=== PATIENT | female | born 1970 | race Asian ===

== ENCOUNTER → 2020-07-30 | Outpatient (CLI) | payer SELFPAY ==
[2020-07-30 11:56] LABS: CALCIUM 9.8 mg/dL (8.5-10.1); CREATININE 0.9 mg/dL (0.6-1.0); POTASSIUM 3.9 mmol/L (3.5-5.1)
[2020-07-30 11:58] LABS: BASO % 1 % (0-3); EOS % 1 % (0-3); HEMATOCRIT 37.3 % (36.0-47.0); LYMPH # 0.8 x10^3/uL (1.0-4.8); LYMPH % 14 % (24-48); MEAN CORPUSCULAR HEMOGLOBIN 30 pg (25-35); MEAN CORPUSCULAR HGB CONC 35 g/dL (31-37); MEAN CORPUSCULAR VOLUME 86 fL (79-100); MONO # 0.5 x10^3/uL (0.0-1.1); MONO % 8 % (0-9); NEUT # 4.5 x10^3/uL (1.8-7.7); NEUT % 77 % (31-73); PLATELET COUNT 287 x10^3/uL (140-400); RED BLOOD COUNT 4.36 x10^6/uL (3.50-5.40); RED CELL DISTRIBUTION WIDTH 13.3 % (11.5-14.5); WHITE BLOOD COUNT 5.9 x10^3/uL (4.0-11.0)
[2020-07-30 12:01] LABS: ALBUMIN 3.2 g/dL (3.4-5.0); ALBUMIN/GLOBULIN RATIO 0.6 (1.0-1.7); TOTAL BILIRUBIN 1.2 mg/dL (0.2-1.0); TOTAL PROTEIN 8.8 g/dL (6.4-8.2)
[2020-07-30 12:17] LABS: PROTHROMBIN TIME PATIENT 16.3 SEC (11.7-14.0)
== END | disposition home or self-care (01) ==
LOC: ONCLAB 11:31
PROVIDERS: ATTEND Internal Medicine Hematology & Oncology
DX: C34.2 Malignant neoplasm of middle lobe, bronchus or lung (principal)
CPT/HCPCS: 36415; 80053; 85025; 85610

== ENCOUNTER → 2020-08-05 | Outpatient (CLI) | payer SELFPAY ==
[2020-08-05 10:04] LABS: BASO % 0 % (0-3); EOS % 1 % (0-3); HEMATOCRIT 38.3 % (36.0-47.0); HEMOGLOBIN 13.2 g/dL (12.0-15.5); LYMPH # 0.4 x10^3/uL (1.0-4.8); LYMPH % 10 % (24-48); MEAN CORPUSCULAR HEMOGLOBIN 29 pg (25-35); MEAN CORPUSCULAR HGB CONC 34 g/dL (31-37); MEAN CORPUSCULAR VOLUME 85 fL (79-100); MONO # 0.4 x10^3/uL (0.0-1.1); MONO % 9 % (0-9); NEUT # 3.5 x10^3/uL (1.8-7.7); NEUT % 80 % (31-73); PLATELET COUNT 266 x10^3/uL (140-400); RED BLOOD COUNT 4.51 x10^6/uL (3.50-5.40); RED CELL DISTRIBUTION WIDTH 12.9 % (11.5-14.5); WHITE BLOOD COUNT 4.4 x10^3/uL (4.0-11.0)
[2020-08-05 10:25] LABS: ALBUMIN 3.5 g/dL (3.4-5.0); ALBUMIN/GLOBULIN RATIO 0.7 (1.0-1.7); CALCIUM 9.3 mg/dL (8.5-10.1); CREATININE 0.8 mg/dL (0.6-1.0); GFR 75.6; TOTAL BILIRUBIN 0.8 mg/dL (0.2-1.0); TOTAL PROTEIN 8.4 g/dL (6.4-8.2)
[2020-08-05 10:28] LABS: POTASSIUM 2.8 mmol/L (3.5-5.1)
== END | disposition home or self-care (01) ==
LOC: ONCLAB 09:51
PROVIDERS: ATTEND Internal Medicine Hematology & Oncology
DX: C34.2 Malignant neoplasm of middle lobe, bronchus or lung (principal)
CPT/HCPCS: 36415; 80053; 85025; 85610

== ENCOUNTER → 2020-08-12 | Outpatient (CLI) | payer SELFPAY ==
[2020-08-12 11:10] LABS: PROTHROMBIN TIME PATIENT 30.8 SEC (11.7-14.0)
== END | disposition home or self-care (01) ==
LOC: ONCLAB 10:43
PROVIDERS: ATTEND Internal Medicine Hematology & Oncology
DX: C34.2 Malignant neoplasm of middle lobe, bronchus or lung (principal)
CPT/HCPCS: 36415; 85610

== ENCOUNTER → 2020-08-18 | Outpatient (CLI) | payer SELFPAY ==
--- NOTE | 2020-08-18 13:49 | EKG ---
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
== END | disposition home or self-care (01) ==
LOC: EKG 13:08
PROVIDERS: ATTEND Internal Medicine Hematology & Oncology
DX: C34.2 Malignant neoplasm of middle lobe, bronchus or lung (principal); R94.31 Abnormal electrocardiogram [ECG] [EKG]
CPT/HCPCS: 93005

== ENCOUNTER → 2020-08-19 | Outpatient (CLI) | payer SELFPAY ==
[2020-08-19 10:46] LABS: BASO % 0 % (0-3); EOS # 0.1 x10^3/uL (0.0-0.7); EOS % 3 % (0-3); HEMOGLOBIN 12.6 g/dL (12.0-15.5); LYMPH # 0.5 x10^3/uL (1.0-4.8); LYMPH % 11 % (24-48); MEAN CORPUSCULAR HEMOGLOBIN 29 pg (25-35); MEAN CORPUSCULAR HGB CONC 34 g/dL (31-37); MEAN CORPUSCULAR VOLUME 86 fL (79-100); MONO # 0.5 x10^3/uL (0.0-1.1); MONO % 11 % (0-9); NEUT # 3.4 x10^3/uL (1.8-7.7); NEUT % 75 % (31-73); PLATELET COUNT 144 x10^3/uL (140-400); RED BLOOD COUNT 4.32 x10^6/uL (3.50-5.40); RED CELL DISTRIBUTION WIDTH 13.7 % (11.5-14.5); WHITE BLOOD COUNT 4.6 x10^3/uL (4.0-11.0)
[2020-08-19 10:55] LABS: PROTHROMBIN TIME PATIENT 32.9 SEC (11.7-14.0)
[2020-08-19 11:01] LABS: CALCIUM 9.1 mg/dL (8.5-10.1); CREATININE 0.8 mg/dL (0.6-1.0); GFR 75.6; POTASSIUM 3.3 mmol/L (3.5-5.1)
[2020-08-19 11:06] LABS: ALBUMIN 3.2 g/dL (3.4-5.0); ALBUMIN/GLOBULIN RATIO 0.7 (1.0-1.7); TOTAL BILIRUBIN 0.7 mg/dL (0.2-1.0); TOTAL PROTEIN 7.8 g/dL (6.4-8.2)
== END ==
LOC: ONCLAB 08:00
PROVIDERS: ATTEND Internal Medicine Hematology & Oncology
DX: C34.2 Malignant neoplasm of middle lobe, bronchus or lung (principal)
CPT/HCPCS: 36415; 80053; 85025; 85610

== ENCOUNTER → 2020-08-26 | Outpatient (CLI) | payer SELFPAY ==
[2020-08-26 10:58] LABS: PROTHROMBIN TIME PATIENT 50.1 SEC (11.7-14.0)
== END ==
LOC: ONCLAB 09:39
PROVIDERS: ATTEND Internal Medicine Hematology & Oncology
DX: C34.2 Malignant neoplasm of middle lobe, bronchus or lung (principal)
CPT/HCPCS: 36415; 85610

== ENCOUNTER → 2020-08-29 | Outpatient (CLI) | payer SELFPAY ==
[2020-08-29 12:28] LABS: PROTHROMBIN TIME PATIENT 16.7 SEC (11.7-14.0)
== END ==
LOC: ONCLAB 11:18
PROVIDERS: ATTEND Internal Medicine Hematology & Oncology
DX: C34.2 Malignant neoplasm of middle lobe, bronchus or lung (principal)
CPT/HCPCS: 36415; 85610

== ENCOUNTER → 2020-09-08 | Outpatient (CLI) | payer MEDICAID, OTHER ==
[~2020-09-08] MED LIST: CONTRAST GIVEN. MC PRN; IOHEXOL 240 MG/ML 50ML VIAL. PO ONE; IOHEXOL 300 MG/ML 100ML VIAL. IV ONE
--- NOTE | 2020-09-08 14:08 | RAD ---
EXAM: CT Chest, Abdomen, and Pelvis with IV contrast INDICATION: Reason: EGFR POSITIVE NON-SMALL CELL LUNG CANCER / Spl. Instructions: IV OMNI 300 75 MLS AND PO OMNI 240 50 MLS / History: TECHNIQUE: Multi-detector row CT images were acquired from the thoracic inlet through the ischial tuberosities with the use of IV contrast. Sagittal and coronal images were acquired from the transaxial data. All CT scans performed at this facility utilize dose optimization techniques as appropriate to the exam, including the following: Automated exposure control and adjustment of the mA and/or KV according to patient size (this includes techniques or standardized protocols for targeted exams where dose is indication/reason for exam). IV CONTRAST: Administered ORAL CONTRAST: Administered COMPARISON: None FINDINGS: CHEST: CARDIOVASCULAR: Ectasia of the ascending thoracic aorta to 3.9 cm . Three vessel arch with no dissection or flow limiting stenosis. Moderate cardiomegaly. No pericardial effusion. MEDIASTINUM & JONATHAN: No adenopathy or masses. LUNGS: Irregular soft tissue mass in the right middle lobe straddling the minor fissure abutting the major fissure is present measuring 2.3 cm in cranial caudal extent (image 49 of series 6), 3.2 cm mediolateral (image 26 of series 2) and 1.8 cm AP diameter (image 26 series 2). PLEURAL SPACE: No pleural effusions or pneumothorax. OSSEOUS & SOFT TISSUE: Osteoblastic lesion with sunburst periosteal reaction in the right scapula is present. ABDOMEN/PELVIS: LIVER: Unremarkable BILIARY SYSTEM: Gallbladder is unremarkable. Bile ducts are not dilated. PANCREAS: Unremarkable SPLEEN: Unremarkable ADRENALS: Unremarkable KIDNEYS & URETERS: Unremarkable BLADDER: Mild nonspecific diffuse bladder wall thickening. This present in the setting of under distention. REPRODUCTIVE ORGANS: Unremarkable GASTROINTESTINAL: Stomach and small bowel are unremarkable. The large bowel is largely stool filled but there are 2 segments of luminal narrowing in the distal ascending portion and in the proximal transverse portion (image 42 and image 46 axial series 4) Represent peristaltic contractions but merit attention on follow-up. The appendix is not well seen but there are no findings suggesting acute appendicitis. MESENTERY/PERITONEUM/RETROPERITONEUM: Unremarkable VASCULAR: Unremarkable LYMPH NODES: No adenopathy OSSEOUS & SOFT TISSUES: Unremarkable IMPRESSION: Irregular mass centered in the right middle lobe crossing the minor fissure and abutting the major fissure measuring 2.3 x 3.2 x 1.8 cm is compatible with patient's known history of non-small cell lung cancer. Apart from an osteoblastic lesion in the right scapula, no findings suspicious for distant metastatic disease is identified in the included field of view. Correlation with prior imaging to assess interval change could be helpful in assessing treatment response. Electronically signed by: Lizzeth Melgar MD (09/08/2020 2:05 PM) [id number]
== END ==
LOC: CT 08:29
PROVIDERS: ATTEND Internal Medicine Hematology & Oncology
DX: C34.2 Malignant neoplasm of middle lobe, bronchus or lung (principal); I77.810 Thoracic aortic ectasia; R91.8 Other nonspecific abnormal finding of lung field
CPT/HCPCS: 71260; 74177; Q9966; Q9967

== ENCOUNTER → 2020-09-10 | Outpatient (CLI) | payer OTHER ==
[2020-09-10 11:40] LABS: BASO % 1 % (0-3); EOS # 0.1 x10^3/uL (0.0-0.7); EOS % 2 % (0-3); HEMATOCRIT 37.1 % (36.0-47.0); HEMOGLOBIN 12.5 g/dL (12.0-15.5); LYMPH # 0.7 x10^3/uL (1.0-4.8); LYMPH % 17 % (24-48); MEAN CORPUSCULAR HEMOGLOBIN 29 pg (25-35); MEAN CORPUSCULAR HGB CONC 34 g/dL (31-37); MEAN CORPUSCULAR VOLUME 86 fL (79-100); MONO # 0.5 x10^3/uL (0.0-1.1); MONO % 12 % (0-9); NEUT # 3.1 x10^3/uL (1.8-7.7); NEUT % 69 % (31-73); PLATELET COUNT 168 x10^3/uL (140-400); RED BLOOD COUNT 4.33 x10^6/uL (3.50-5.40); RED CELL DISTRIBUTION WIDTH 14.2 % (11.5-14.5); WHITE BLOOD COUNT 4.5 x10^3/uL (4.0-11.0)
[2020-09-10 11:41] LABS: CREATININE 0.9 mg/dL (0.6-1.0); POTASSIUM 3.4 mmol/L (3.5-5.1)
[2020-09-10 11:47] LABS: ALBUMIN 3.3 g/dL (3.4-5.0); ALBUMIN/GLOBULIN RATIO 0.7 (1.0-1.7); TOTAL BILIRUBIN 0.3 mg/dL (0.2-1.0); TOTAL PROTEIN 7.8 g/dL (6.4-8.2)
[2020-09-10 11:49] LABS: PROTHROMBIN TIME PATIENT 39.6 SEC (11.7-14.0)
== END ==
LOC: ONCLAB 11:08
PROVIDERS: ATTEND Internal Medicine Hematology & Oncology
DX: C34.2 Malignant neoplasm of middle lobe, bronchus or lung (principal)
CPT/HCPCS: 36415; 80053; 85025; 85610

== ENCOUNTER → 2020-09-16 | Outpatient (CLI) | payer OTHER ==
[2020-09-16 11:56] LABS: PROTHROMBIN TIME PATIENT 15.3 SEC (11.7-14.0)
[2020-09-16 11:58] LABS: CALCIUM 9.3 mg/dL (8.5-10.1); CREATININE 0.9 mg/dL (0.6-1.0); POTASSIUM 3.7 mmol/L (3.5-5.1)
[2020-09-16 12:01] LABS: ALBUMIN 3.4 g/dL (3.4-5.0); ALBUMIN/GLOBULIN RATIO 0.7 (1.0-1.7); TOTAL BILIRUBIN 0.6 mg/dL (0.2-1.0); TOTAL PROTEIN 8.1 g/dL (6.4-8.2)
== END ==
LOC: ONCLAB 11:28
PROVIDERS: ATTEND Internal Medicine Hematology & Oncology
DX: C34.2 Malignant neoplasm of middle lobe, bronchus or lung (principal)
CPT/HCPCS: 36415; 80053; 85610

== ENCOUNTER → 2020-09-22 | Outpatient (CLI) | payer OTHER ==
--- NOTE | 2020-09-22 16:53 | RAD ---
Examination: Bone Scintigraphy - Whole Body: Radiopharmaceutical: 25 mCi Tc-99m MDP I.V. History: Lung cancer, metastasis. Comparison: CT from 09/08/2020 Findings/ impression: Delayed anterior and posterior whole body bone scintigraphy was performed. There is a focal radiotracer uptake identified in the right scapular region with corresponding to sclerotic lesion on the CT scan could be metastasis or post therapeutic changes. Correlate with prior imaging. Electronically signed by: Chele Theodore MD (09/22/2020 4:50 PM) [id number]
== END ==
LOC: NM 10:28
PROVIDERS: ATTEND Radiology Radiation Oncology
DX: C34.2 Malignant neoplasm of middle lobe, bronchus or lung (principal); C79.81 Secondary malignant neoplasm of breast
CPT/HCPCS: 78306; A9503

== ENCOUNTER → 2020-09-22 | Outpatient (CLI) | payer OTHER ==
--- NOTE | 2020-09-22 11:36 | EKG ---
[facility] [address] [place] [address] Test Date: 2020-09-22 Test Time: 11:31:42 Pat Name: NOEL TILLMAN Department: Room: Gender: F Ct Tech: SJ : 1970 Requested By: WILMAR HUANG Order Number: [id number] Reading MD: Chase West MD Measurements Intervals [place] Rate: 73 P: 42 [place]: 158 QRS: 40 QRSD: 84 T: 63 QT: 394 QTc: 438 Interpretive Statements SINUS RHYTHM Electronically Signed On 09-22-2020 16:13:56 PICTURE FRAMES INSPECTOR by Chase West MD
== END ==
LOC: EKG 10:43
PROVIDERS: ATTEND Internal Medicine Hematology & Oncology
DX: C34.2 Malignant neoplasm of middle lobe, bronchus or lung (principal)
CPT/HCPCS: 93005

== ENCOUNTER → 2020-10-13 | Outpatient (CLI) | payer OTHER ==
[2020-10-13 12:40] LABS: BASO % 1 % (0-3); EOS # 0.1 x10^3/uL (0.0-0.7); EOS % 2 % (0-3); HEMATOCRIT 37.7 % (36.0-47.0); HEMOGLOBIN 12.6 g/dL (12.0-15.5); LYMPH # 0.7 x10^3/uL (1.0-4.8); LYMPH % 16 % (24-48); MEAN CORPUSCULAR HEMOGLOBIN 29 pg (25-35); MEAN CORPUSCULAR HGB CONC 34 g/dL (31-37); MEAN CORPUSCULAR VOLUME 85 fL (79-100); MONO # 0.5 x10^3/uL (0.0-1.1); MONO % 11 % (0-9); NEUT # 3.2 x10^3/uL (1.8-7.7); NEUT % 71 % (31-73); PLATELET COUNT 191 x10^3/uL (140-400); RED BLOOD COUNT 4.44 x10^6/uL (3.50-5.40); RED CELL DISTRIBUTION WIDTH 14.9 % (11.5-14.5); WHITE BLOOD COUNT 4.5 x10^3/uL (4.0-11.0)
[2020-10-13 12:54] LABS: CALCIUM 8.5 mg/dL (8.5-10.1); CREATININE 0.8 mg/dL (0.6-1.0); GFR 75.6; POTASSIUM 3.6 mmol/L (3.5-5.1)
[2020-10-13 13:01] LABS: ALBUMIN 3.3 g/dL (3.4-5.0); ALBUMIN/GLOBULIN RATIO 0.8 (1.0-1.7); TOTAL BILIRUBIN 0.5 mg/dL (0.2-1.0); TOTAL PROTEIN 7.6 g/dL (6.4-8.2)
== END ==
LOC: ONCLAB 12:16
PROVIDERS: ATTEND Internal Medicine Hematology & Oncology
DX: C34.2 Malignant neoplasm of middle lobe, bronchus or lung (principal)
CPT/HCPCS: 36415; 80053; 85025

== ENCOUNTER → 2020-11-17 | Outpatient (CLI) | payer OTHER ==
--- NOTE | 2020-12-12 11:54 | EKG ---
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
== END ==
LOC: EKG 12:05
PROVIDERS: ATTEND Internal Medicine Hematology & Oncology
DX: C34.2 Malignant neoplasm of middle lobe, bronchus or lung (principal); I49.8 Other specified cardiac arrhythmias
CPT/HCPCS: 93005

== ENCOUNTER → 2020-12-18 | Outpatient (CLI) | payer OTHER ==
[2020-12-18 12:41] LABS: BASO % 0 % (0-3); EOS # 0.1 x10^3/uL (0.0-0.7); EOS % 2 % (0-3); HEMATOCRIT 34.5 % (36.0-47.0); HEMOGLOBIN 11.6 g/dL (12.0-15.5); LYMPH % 18 % (24-48); MEAN CORPUSCULAR HEMOGLOBIN 28 pg (25-35); MEAN CORPUSCULAR HGB CONC 34 g/dL (31-37); MEAN CORPUSCULAR VOLUME 83 fL (79-100); MONO # 0.7 x10^3/uL (0.0-1.1); MONO % 12 % (0-9); NEUT % 69 % (31-73); PLATELET COUNT 86 x10^3/uL (140-400); RED BLOOD COUNT 4.16 x10^6/uL (3.50-5.40); RED CELL DISTRIBUTION WIDTH 14.2 % (11.5-14.5); WHITE BLOOD COUNT 5.9 x10^3/uL (4.0-11.0)
[2020-12-18 12:44] LABS: CALCIUM 9.1 mg/dL (8.5-10.1); CREATININE 0.8 mg/dL (0.6-1.0); GFR 75.3; POTASSIUM 3.7 mmol/L (3.5-5.1)
[2020-12-18 12:50] LABS: ALBUMIN 3.3 g/dL (3.4-5.0); ALBUMIN/GLOBULIN RATIO 0.7 (1.0-1.7); TOTAL BILIRUBIN 0.5 mg/dL (0.2-1.0); TOTAL PROTEIN 7.9 g/dL (6.4-8.2)
== END ==
LOC: ONCLAB 12:18
PROVIDERS: ATTEND Internal Medicine Hematology & Oncology
DX: C34.2 Malignant neoplasm of middle lobe, bronchus or lung (principal)
CPT/HCPCS: 36415; 80053; 85025

== ENCOUNTER → 2021-01-05 | Outpatient (CLI) | payer OTHER ==
[~2021-01-05] MED LIST changes: -CONTRAST GIVEN. MC PRN
--- NOTE | 2021-01-05 16:46 | RAD ---
EXAM: CT Chest, Abdomen, and Pelvis with IV contrast INDICATION: Reason: EGFR SMALL CELL LUNG CA / Spl. Instructions: IV OMNI 300 75 MLS AND PO OMNI 240 5 0 MLS / History: TECHNIQUE: Multi-detector row CT images were acquired from the thoracic inlet through the ischial tu berosities with the use of IV contrast. Sagittal and coronal images were acquired from the transaxial data. All CT scans performed at this facility utilize dose optimization techniques as appropriate to the exam, including the following: Automated exposure control and adjustment of the mA and/or KV acc ording to patient size (this includes techniques or standardized protocols for targeted exams where d ose is indication/reason for exam). IV CONTRAST: Administered ORAL CONTRAST: Administered COMPARISON: Chest abdomen pelvis CT with IV contrast of 09/08/2020 FINDINGS: CHEST: CARDIOVASCULAR: Stable ectasia of the ascending thoracic aorta to 3.9 cm. Stable moderate cardiomega ly. MEDIASTINUM & JONATHAN: No adenopathy or masses. LUNGS: Interval decrease in size of the irregular right middle lobe lung mass centered in the right middle l obe crossing the minor fissure and abutting the major fissure, now measuring 2.0 x 1.7 x 2.6 cm (cc b y AP by transverse), compared with previously reported 2.3 x 1.8 x 3.2 cm. Reticular opacities in the periphery of the lingula and anterior basal left lower lobe with a sharp, linear border are new (image 30 through 39 of series 2) PLEURAL SPACE: No pleural effusions or pneumothorax. OSSEOUS & SOFT TISSUE: Osteoblastic lesion in the right scapula demonstrated less irregularity to the cortical surface, compatible with a positive treatment response. Numerous punctate sclerotic foci ar e present scattered throughout the skeleton, nonspecific and unchanged in the interval. No new osseou s lesions are identified. ABDOMEN/PELVIS: LIVER: Unremarkable BILIARY SYSTEM: Gallbladder is unremarkable. Bile ducts are not dilated. PANCREAS: Unremarkable SPLEEN: Unremarkable ADRENALS: Unremarkable KIDNEYS & URETERS: Unremarkable BLADDER: Bladder is under distended and there is persistent mild nonspecific diffuse bladder wall th ickening, improved from prior. REPRODUCTIVE ORGANS: Unremarkable GASTROINTESTINAL: The stomach, small bowel, and colon are unremarkable. Previously noted areas of col onic luminal narrowing have resolved. The appendix is normal. MESENTERY/PERITONEUM/RETROPERITONEUM: Unremarkable VASCULAR: Unremarkable LYMPH NODES: No adenopathy OSSEOUS & SOFT TISSUES: Unremarkable IMPRESSION: 1. Slight interval decrease in size of the right middle lobe lung mass, compatible with a positive tr eatment response. 2. Interval decrease in sunburst appearance to the sclerotic lesion in the right scapula, also favore d a positive treatment response. 3. Linear margined reticular densities in the periphery of the left lung are nonspecific ; query kevin tment related effect versus incidental pneumonitis. 4. Numerous tiny sclerotic foci scattered throughout the skeleton are nonspecific but unchanged. They could represent tiny osteoblastic metastases but alternatively could represent small bone islands. T hese can be reevaluated on follow-up as well. 5. Improving findings of cystitis. 6. Resolved peristaltic contractions in the large bowel. Electronically signed by: Lizzeth Melgar MD (01/05/2021 4:43 PM) [id number]
== END ==
LOC: CT 09:38
PROVIDERS: ATTEND Internal Medicine Hematology & Oncology
DX: C34.2 Malignant neoplasm of middle lobe, bronchus or lung (principal); R91.8 Other nonspecific abnormal finding of lung field; I77.810 Thoracic aortic ectasia; I51.7 Cardiomegaly; N30.90 Cystitis, unspecified without hematuria; N32.89 Other specified disorders of bladder
CPT/HCPCS: 71260; 74177; Q9966; Q9967

== ENCOUNTER → 2021-01-13 | Outpatient (CLI) | payer OTHER ==
[2021-01-13 14:29] LABS: BASO % 1 % (0-3); EOS # 0.1 x10^3/uL (0.0-0.7); EOS % 2 % (0-3); HEMATOCRIT 34.7 % (36.0-47.0); HEMOGLOBIN 11.5 g/dL (12.0-15.5); LYMPH % 21 % (24-48); MEAN CORPUSCULAR HEMOGLOBIN 28 pg (25-35); MEAN CORPUSCULAR HGB CONC 33 g/dL (31-37); MEAN CORPUSCULAR VOLUME 83 fL (79-100); MONO # 0.5 x10^3/uL (0.0-1.1); MONO % 10 % (0-9); NEUT # 3.1 x10^3/uL (1.8-7.7); NEUT % 65 % (31-73); PLATELET COUNT 113 x10^3/uL (140-400); RED BLOOD COUNT 4.16 x10^6/uL (3.50-5.40); RED CELL DISTRIBUTION WIDTH 14.3 % (11.5-14.5); WHITE BLOOD COUNT 4.8 x10^3/uL (4.0-11.0)
[2021-01-13 14:46] LABS: CALCIUM 8.9 mg/dL (8.5-10.1); CREATININE 0.9 mg/dL (0.6-1.0); GFR 65.8
[2021-01-13 15:09] LABS: PLT ESTIMATE DECREASED (ADEQUATE)
== END ==
LOC: ONCLAB 14:11
PROVIDERS: ATTEND Internal Medicine Hematology & Oncology
DX: C34.2 Malignant neoplasm of middle lobe, bronchus or lung (principal); R10.84 Generalized abdominal pain
CPT/HCPCS: 36415; 80048; 83615; 85025; 87086

== ENCOUNTER → 2021-01-20 | Outpatient (CLI) | payer OTHER ==
--- NOTE | 2021-01-20 09:42 | EKG ---
[facility] [address] [place] [address] Test Date: 2021-01-20 Test Time: 09:38:52 Pat Name: NOEL TILLMAN Department: Room: Gender: F Principal Technologist: SJ : 1970 Requested By: WILMAR HUANG Order Number: [id number] Reading MD: Chase West MD Measurements Intervals [place] Rate: 75 P: 41 IN: 150 QRS: 33 QRSD: 80 T: 36 QT: 384 QTc: 431 Interpretive Statements SINUS RHYTHM Electronically Signed On 01-20-2021 12:09:52 TURN DOWN ATTENDANT by Chase West MD
--- NOTE | 2021-01-20 09:47 | RAD ---
EXAM: Abdomen sonogram. HISTORY: Pain. TECHNIQUE: Sonographic imaging of the abdomen was performed. COMPARISON: None. FINDINGS: The liver is normal in size. No focal hepatic lesion is seen. The common bile duct is yared l in caliber. The gallbladder is unremarkable. The kidneys are normal in size. There is no solid or c ystic renal lesion. There is no hydronephrosis. The spleen is normal in size. The pancreas, aorta and inferior vena cava are unremarkable. IMPRESSION: Unremarkable abdomen sonogram. Electronically signed by: Shraddha Moralez MD (01/20/2021 9:44 AM) [id number]
== END ==
LOC: EKG 09:01
PROVIDERS: ATTEND Internal Medicine Hematology & Oncology
DX: C34.2 Malignant neoplasm of middle lobe, bronchus or lung (principal)
CPT/HCPCS: 76700; 93005

== ENCOUNTER → 2021-01-26 | Outpatient (CLI) | payer OTHER ==
[2021-01-26 10:07] LABS: BASO % 0 % (0-3); EOS # 0.1 x10^3/uL (0.0-0.7); EOS % 2 % (0-3); HEMATOCRIT 34.9 % (36.0-47.0); HEMOGLOBIN 11.4 g/dL (12.0-15.5); LYMPH # 0.7 x10^3/uL (1.0-4.8); LYMPH % 17 % (24-48); MEAN CORPUSCULAR HEMOGLOBIN 27 pg (25-35); MEAN CORPUSCULAR HGB CONC 33 g/dL (31-37); MEAN CORPUSCULAR VOLUME 84 fL (79-100); MONO # 0.4 x10^3/uL (0.0-1.1); MONO % 10 % (0-9); NEUT % 70 % (31-73); PLATELET COUNT 103 x10^3/uL (140-400); RED BLOOD COUNT 4.17 x10^6/uL (3.50-5.40); RED CELL DISTRIBUTION WIDTH 14.3 % (11.5-14.5); WHITE BLOOD COUNT 4.3 x10^3/uL (4.0-11.0)
[2021-01-26 10:10] LABS: CALCIUM 8.7 mg/dL (8.5-10.1); CREATININE 0.9 mg/dL (0.6-1.0); GFR 65.8; POTASSIUM 3.7 mmol/L (3.5-5.1)
[2021-01-26 10:16] LABS: ALBUMIN 3.4 g/dL (3.4-5.0); ALBUMIN/GLOBULIN RATIO 0.8 (1.0-1.7); TOTAL BILIRUBIN 0.5 mg/dL (0.2-1.0); TOTAL PROTEIN 7.8 g/dL (6.4-8.2)
== END ==
LOC: ONCLAB 08:48
PROVIDERS: ATTEND Physician Assistant
DX: C34.2 Malignant neoplasm of middle lobe, bronchus or lung (principal)
CPT/HCPCS: 36415; 80053; 85025

== ENCOUNTER → 2021-02-02 | Outpatient (CLI) | payer OTHER ==
[2021-02-02 10:59] LABS: CREATININE 0.9 mg/dL (0.6-1.0); GFR 65.8; POTASSIUM 3.8 mmol/L (3.5-5.1)
[2021-02-02 11:05] LABS: ALBUMIN 3.3 g/dL (3.4-5.0); ALBUMIN/GLOBULIN RATIO 0.7 (1.0-1.7); TOTAL BILIRUBIN 0.6 mg/dL (0.2-1.0); TOTAL PROTEIN 7.8 g/dL (6.4-8.2)
[2021-02-02 11:09] LABS: BASO % 0 % (0-3); EOS # 0.1 x10^3/uL (0.0-0.7); EOS % 2 % (0-3); HEMATOCRIT 35.2 % (36.0-47.0); HEMOGLOBIN 11.4 g/dL (12.0-15.5); LYMPH # 0.8 x10^3/uL (1.0-4.8); LYMPH % 14 % (24-48); MEAN CORPUSCULAR HEMOGLOBIN 27 pg (25-35); MEAN CORPUSCULAR HGB CONC 33 g/dL (31-37); MEAN CORPUSCULAR VOLUME 84 fL (79-100); MONO # 0.7 x10^3/uL (0.0-1.1); MONO % 12 % (0-9); NEUT # 3.8 x10^3/uL (1.8-7.7); NEUT % 71 % (31-73); PLATELET COUNT 81 x10^3/uL (140-400); RED CELL DISTRIBUTION WIDTH 14.4 % (11.5-14.5); WHITE BLOOD COUNT 5.3 x10^3/uL (4.0-11.0)
[2021-02-02 13:08] LABS: PLT ESTIMATE DECREASED (ADEQUATE)
[2021-02-02 13:09] LABS: STOMATOCYTES MOD
== END ==
LOC: ONCLAB 09:34
PROVIDERS: ATTEND Physician Assistant
DX: C34.2 Malignant neoplasm of middle lobe, bronchus or lung (principal)
CPT/HCPCS: 36415; 80053; 85025

== ENCOUNTER → 2021-02-09 | Outpatient (CLI) | payer OTHER ==
[2021-02-09 11:28] LABS: BASO # 0.1 x10^3/uL (0.0-0.2); BASO % 1 % (0-3); EOS # 0.1 x10^3/uL (0.0-0.7); EOS % 2 % (0-3); HEMATOCRIT 36.1 % (36.0-47.0); LYMPH # 1.1 x10^3/uL (1.0-4.8); LYMPH % 18 % (24-48); MEAN CORPUSCULAR HEMOGLOBIN 28 pg (25-35); MEAN CORPUSCULAR HGB CONC 33 g/dL (31-37); MEAN CORPUSCULAR VOLUME 84 fL (79-100); MONO # 0.6 x10^3/uL (0.0-1.1); MONO % 9 % (0-9); NEUT # 4.6 x10^3/uL (1.8-7.7); NEUT % 71 % (31-73); PLATELET COUNT 107 x10^3/uL (140-400); RED BLOOD COUNT 4.32 x10^6/uL (3.50-5.40); RED CELL DISTRIBUTION WIDTH 14.2 % (11.5-14.5); WHITE BLOOD COUNT 6.5 x10^3/uL (4.0-11.0)
[2021-02-09 11:34] LABS: CALCIUM 8.5 mg/dL (8.5-10.1); CREATININE 0.9 mg/dL (0.6-1.0); GFR 65.8
[2021-02-09 11:39] LABS: ALBUMIN 3.3 g/dL (3.4-5.0); ALBUMIN/GLOBULIN RATIO 0.7 (1.0-1.7); TOTAL BILIRUBIN 0.6 mg/dL (0.2-1.0); TOTAL PROTEIN 7.9 g/dL (6.4-8.2)
== END ==
LOC: ONCLAB 10:45
PROVIDERS: ATTEND Internal Medicine Hematology & Oncology
DX: C34.2 Malignant neoplasm of middle lobe, bronchus or lung (principal)
CPT/HCPCS: 36415; 80053; 83615; 85025

== ENCOUNTER → 2021-03-12 | Outpatient (CLI) | payer OTHER ==
[2021-03-12 12:17] LABS: BASO % 0 % (0-3); CALCIUM 8.9 mg/dL (8.5-10.1); CREATININE 0.9 mg/dL (0.6-1.0); EOS # 0.1 x10^3/uL (0.0-0.7); EOS % 1 % (0-3); GFR 65.8; HEMATOCRIT 34.9 % (36.0-47.0); HEMOGLOBIN 11.3 g/dL (12.0-15.5); LYMPH % 18 % (24-48); MEAN CORPUSCULAR HEMOGLOBIN 27 pg (25-35); MEAN CORPUSCULAR HGB CONC 32 g/dL (31-37); MEAN CORPUSCULAR VOLUME 83 fL (79-100); MONO # 0.6 x10^3/uL (0.0-1.1); MONO % 11 % (0-9); NEUT # 3.7 x10^3/uL (1.8-7.7); NEUT % 69 % (31-73); PLATELET COUNT 68 x10^3/uL (140-400); POTASSIUM 3.8 mmol/L (3.5-5.1); RED BLOOD COUNT 4.22 x10^6/uL (3.50-5.40); RED CELL DISTRIBUTION WIDTH 14.8 % (11.5-14.5); WHITE BLOOD COUNT 5.3 x10^3/uL (4.0-11.0)
[2021-03-12 12:23] LABS: ALBUMIN 3.7 g/dL (3.4-5.0); ALBUMIN/GLOBULIN RATIO 0.9 (1.0-1.7); TOTAL BILIRUBIN 0.7 mg/dL (0.2-1.0); TOTAL PROTEIN 7.8 g/dL (6.4-8.2)
== END ==
LOC: ONCLAB 11:25
PROVIDERS: ATTEND Internal Medicine
DX: C34.2 Malignant neoplasm of middle lobe, bronchus or lung (principal)
CPT/HCPCS: 36415; 80053; 85025

== ENCOUNTER → 2021-03-12 | Outpatient (CLI) | payer OTHER ==
--- NOTE | 2021-03-12 11:11 | EKG ---
[facility] [address] [place] [address] Test Date: 2021-03-12 Test Time: 11:09:34 Pat Name: NOEL TILLMAN Department: Room: Gender: F Band Director: ADRIENNE : 1970 Requested By: RUPERTO RODRIGUEZ Order Number: [id number] Reading MD: Maxwell Plata Measurements Intervals [place] Rate: 61 P: 48 [place]: 156 QRS: 44 QRSD: 84 T: 65 QT: 466 QTc: 471 Interpretive Statements SINUS RHYTHM T ABNORMALITY IN ANTEROLATERAL LEADS ABNORMAL ECG RI6.02 Compared to ECG 01/20/2021 09:38:52 T-wave abnormality now present Electronically Signed On 03-12-2021 11:24:09 CDT by Maxwell Plata
== END ==
LOC: EKG 10:43
PROVIDERS: ATTEND Internal Medicine
DX: C34.2 Malignant neoplasm of middle lobe, bronchus or lung (principal)
CPT/HCPCS: 93005

== ENCOUNTER → 2021-03-19 | Outpatient (CLI) | payer OTHER ==
[2021-03-19 10:23] LABS: BASO % 0 % (0-3); EOS # 0.1 x10^3/uL (0.0-0.7); EOS % 2 % (0-3); HEMATOCRIT 33.4 % (36.0-47.0); HEMOGLOBIN 11.1 g/dL (12.0-15.5); LYMPH # 0.9 x10^3/uL (1.0-4.8); LYMPH % 16 % (24-48); MEAN CORPUSCULAR HEMOGLOBIN 27 pg (25-35); MEAN CORPUSCULAR HGB CONC 33 g/dL (31-37); MEAN CORPUSCULAR VOLUME 82 fL (79-100); MONO # 0.6 x10^3/uL (0.0-1.1); MONO % 11 % (0-9); NEUT # 3.9 x10^3/uL (1.8-7.7); NEUT % 71 % (31-73); PLATELET COUNT 94 x10^3/uL (140-400); RED BLOOD COUNT 4.08 x10^6/uL (3.50-5.40); RED CELL DISTRIBUTION WIDTH 14.9 % (11.5-14.5); WHITE BLOOD COUNT 5.4 x10^3/uL (4.0-11.0)
[2021-03-19 10:31] LABS: CALCIUM 8.9 mg/dL (8.5-10.1); CREATININE 0.8 mg/dL (0.6-1.0); GFR 75.3; POTASSIUM 3.7 mmol/L (3.5-5.1)
[2021-03-19 10:36] LABS: ALBUMIN 3.6 g/dL (3.4-5.0); ALBUMIN/GLOBULIN RATIO 0.9 (1.0-1.7); TOTAL BILIRUBIN 0.9 mg/dL (0.2-1.0); TOTAL PROTEIN 7.8 g/dL (6.4-8.2)
== END ==
LOC: ONCLAB 09:35
PROVIDERS: ATTEND Internal Medicine
DX: C34.2 Malignant neoplasm of middle lobe, bronchus or lung (principal)
CPT/HCPCS: 36415; 80053; 85025

== ENCOUNTER → 2021-03-23 | Outpatient (CLI) | payer OTHER ==
[2021-03-23 11:40] LABS: CALCIUM 8.4 mg/dL (8.5-10.1); CREATININE 0.9 mg/dL (0.6-1.0); GFR 65.8; POTASSIUM 3.6 mmol/L (3.5-5.1)
[2021-03-23 11:43] LABS: BASO % 0 % (0-3); EOS # 0.2 x10^3/uL (0.0-0.7); EOS % 3 % (0-3); HEMATOCRIT 32.3 % (36.0-47.0); HEMOGLOBIN 10.6 g/dL (12.0-15.5); LYMPH # 0.9 x10^3/uL (1.0-4.8); LYMPH % 18 % (24-48); MEAN CORPUSCULAR HEMOGLOBIN 27 pg (25-35); MEAN CORPUSCULAR HGB CONC 33 g/dL (31-37); MEAN CORPUSCULAR VOLUME 82 fL (79-100); MONO # 0.6 x10^3/uL (0.0-1.1); MONO % 11 % (0-9); NEUT # 3.6 x10^3/uL (1.8-7.7); NEUT % 68 % (31-73); PLATELET COUNT 111 x10^3/uL (140-400); RED BLOOD COUNT 3.94 x10^6/uL (3.50-5.40); RED CELL DISTRIBUTION WIDTH 15.2 % (11.5-14.5); WHITE BLOOD COUNT 5.2 x10^3/uL (4.0-11.0)
[2021-03-23 11:47] LABS: ALBUMIN 3.5 g/dL (3.4-5.0); ALBUMIN/GLOBULIN RATIO 0.9 (1.0-1.7); TOTAL BILIRUBIN 0.7 mg/dL (0.2-1.0); TOTAL PROTEIN 7.5 g/dL (6.4-8.2)
== END ==
LOC: ONCLAB 09:59
PROVIDERS: ATTEND Physician Assistant
DX: C34.2 Malignant neoplasm of middle lobe, bronchus or lung (principal)
CPT/HCPCS: 36415; 80053; 85025

== ENCOUNTER → 2021-03-30 | Outpatient (CLI) | payer OTHER ==
[2021-03-30 10:36] LABS: BASO % 0 % (0-3); EOS # 0.1 x10^3/uL (0.0-0.7); EOS % 3 % (0-3); HEMOGLOBIN 10.8 g/dL (12.0-15.5); LYMPH # 1.1 x10^3/uL (1.0-4.8); LYMPH % 25 % (24-48); MEAN CORPUSCULAR HEMOGLOBIN 27 pg (25-35); MEAN CORPUSCULAR HGB CONC 33 g/dL (31-37); MEAN CORPUSCULAR VOLUME 82 fL (79-100); MONO # 0.6 x10^3/uL (0.0-1.1); MONO % 14 % (0-9); NEUT # 2.5 x10^3/uL (1.8-7.7); NEUT % 58 % (31-73); PLATELET COUNT 107 x10^3/uL (140-400); RED BLOOD COUNT 4.04 x10^6/uL (3.50-5.40); RED CELL DISTRIBUTION WIDTH 15.1 % (11.5-14.5); WHITE BLOOD COUNT 4.4 x10^3/uL (4.0-11.0)
[2021-03-30 10:54] LABS: CALCIUM 8.6 mg/dL (8.5-10.1); CREATININE 0.9 mg/dL (0.6-1.0); GFR 65.8; POTASSIUM 3.9 mmol/L (3.5-5.1)
[2021-03-30 12:52] LABS: PLT ESTIMATE DECREASED (ADEQUATE)
== END ==
LOC: ONCLAB 10:17
PROVIDERS: ATTEND Physician Assistant
DX: C34.2 Malignant neoplasm of middle lobe, bronchus or lung (principal)
CPT/HCPCS: 36415; 80048; 85025

== ENCOUNTER → 2021-03-30 | Outpatient (CLI) | payer OTHER ==
[~2021-03-30] MED LIST changes: +GADOTERATE 7.5 MMOL/15ML VIAL. IVP ONE; -IOHEXOL 240 MG/ML 50ML VIAL. PO ONE; -IOHEXOL 300 MG/ML 100ML VIAL. IV ONE
--- NOTE | 2021-03-30 14:25 | RAD ---
MRI LUMBAR SPINE WITHOUT AND WITH IV CONTRAST Date: 03/30/2021 11:31 AM Indication: new lumbar pain. Hx bone metastasis, EGFR positive non-small cell lung ca Comparison: None. Technique: Multi-planar multi-weighted magnetic resonance imaging of the lumbar spine was performed w ith and without intravenous contrast using the standard lumbar spine protocol. [address] was administered intravenously during the examination. FINDINGS: Straightening of the lumbar lordosis. No acute fracture. Mild multilevel degenerative disc desiccatio n and disc height loss. Degenerative endplate edema at L5-S1. Multiple sclerotic foci in the sacrum a nd iliac bones, some of which may demonstrate faint postcontrast enhancement. The conus terminates at a normal level. No abnormal signal is seen within the visualized distal spina l cord. No clumping of intrathecal nerve roots. Sacral Tarlov cysts. No soft tissue abnormality in the visualized abdomen or pelvis. T12-L1: No disc bulge. No facet arthropathy. No significant spinal stenosis or neural foraminal narro wing. L1-L2: No disc bulge. No facet arthropathy. No significant spinal stenosis or neural foraminal narrow ing. L2-L3: No disc bulge. No facet arthropathy. No significant spinal stenosis or neural foraminal narrow ing. L3-L4: No disc bulge. No facet arthropathy. No significant spinal stenosis or neural foraminal narrow ing. L4-L5: Disc bulge with annular tear. Mild facet arthropathy. No significant spinal stenosis. Mild surya ateral neural foraminal narrowing. L5-S1: Disc bulge with annular tear. Mild facet arthropathy. No significant spinal stenosis. Mild surya ateral neural foraminal narrowing. IMPRESSION: 1. Multiple tiny sclerotic foci in the sacrum and bilateral iliac bones, some of which may demonstrat e faint postcontrast enhancement. These are indeterminate, but could represent osseous metastases. 2. Mild lumbar spondylosis. Electronically signed by: Richie Be MD (03/30/2021 2:22 PM) [id number]
== END ==
LOC: MRI 11:14
PROVIDERS: ATTEND Internal Medicine
DX: C79.51 Secondary malignant neoplasm of bone (principal); C34.2 Malignant neoplasm of middle lobe, bronchus or lung; G89.3 Neoplasm related pain (acute) (chronic); M47.816 Spondylosis without myelopathy or radiculopathy, lumbar region
CPT/HCPCS: 72158; A9575

== ENCOUNTER → 2021-04-06 | Outpatient (CLI) | payer OTHER ==
[2021-04-06 10:34] LABS: BASO % 0 % (0-3); EOS # 0.1 x10^3/uL (0.0-0.7); EOS % 3 % (0-3); HEMATOCRIT 31.7 % (36.0-47.0); HEMOGLOBIN 10.3 g/dL (12.0-15.5); LYMPH # 1.2 x10^3/uL (1.0-4.8); LYMPH % 24 % (24-48); MEAN CORPUSCULAR HEMOGLOBIN 27 pg (25-35); MEAN CORPUSCULAR HGB CONC 32 g/dL (31-37); MEAN CORPUSCULAR VOLUME 82 fL (79-100); MONO # 0.6 x10^3/uL (0.0-1.1); MONO % 12 % (0-9); NEUT % 61 % (31-73); PLATELET COUNT 136 x10^3/uL (140-400); RED BLOOD COUNT 3.86 x10^6/uL (3.50-5.40); RED CELL DISTRIBUTION WIDTH 15.1 % (11.5-14.5); WHITE BLOOD COUNT 4.8 x10^3/uL (4.0-11.0)
[2021-04-06 10:51] LABS: CALCIUM 8.5 mg/dL (8.5-10.1); GFR 58.2
[2021-04-06 10:57] LABS: ALBUMIN 3.4 g/dL (3.4-5.0); ALBUMIN/GLOBULIN RATIO 0.8 (1.0-1.7); TOTAL BILIRUBIN 0.6 mg/dL (0.2-1.0); TOTAL PROTEIN 7.7 g/dL (6.4-8.2)
== END | disposition home or self-care (01) ==
LOC: ONCLAB 10:00
PROVIDERS: ATTEND Physician Assistant
DX: C34.2 Malignant neoplasm of middle lobe, bronchus or lung (principal)
CPT/HCPCS: 36415; 80053; 83615; 85025

== ENCOUNTER → 2021-04-07 | Outpatient (CLI) | payer OTHER ==
[~2021-04-07] MED LIST changes: -GADOTERATE 7.5 MMOL/15ML VIAL. IVP ONE; +IOHEXOL 240 MG/ML 50ML VIAL. PO ONE; +IOHEXOL 300 MG/ML 100ML VIAL. IV ONE
--- NOTE | 2021-04-07 15:07 | RAD ---
Study: CT chest, abdomen and pelvis with contrast INDICATION: EGFR positive non-small cell lung cancer. COMPARISON: 01/05/2021 TECHNIQUE: Helical CT imaging performed of the chest, abdomen and pelvis after the intravenous admini stration of 60 cc Omnipaque 300. Coronal and sagittal reformats were obtained. One or more of the following individualized dose reduction techniques were utilized for this examinat ion: 1. Automated exposure control 2. Adjustment of the mA and/or kV according to patient size 3. Use of iterative reconstruction technique. FINDINGS: CT Chest: Elongated masslike opacity in the right middle lobe abutting a portion of the minor and major fissure s has not changed in density or extent. Transverse dimension measurements on images 26 through 28 ser ies 2 measuring 1.1 cm, 1.9 cm and 1.6 cm which is no different from transverse measurements on image 24 through 26 on the prior. Ill-defined pleural-based soft tissue density at the posterolateral righ t upper lobe, image 12 series 2, is unchanged. No newly seen nodule or infiltrate throughout either l jess. No pleural effusion or pneumothorax. Patent central airways. Stable major vasculature. The heart is again somewhat prominent in size. No enlarging mediastinal or hilar lymph nodes. No pericardial effusion. The visualized thyroid is within normal limits. No axillary adenopathy. Redemonstrated sclerosis of the right scapula most notable at the lateral body, neck and throughout t he glenoid. Additional punctate foci of sclerosis have not significant changed. CT Abdomen/Pelvis: No newly seen abnormality of the liver, gallbladder, biliary tree, pancreas, spleen or adrenal glands . No complex renal cyst or mass. More noticeable circumferential bladder wall thickening but likely i n part from underdistention. Within normal limits uterus and adnexa. Mild constipation. Unremarkable small bowel and stomach. Nonaneurysmal aorta. No adenopathy. No significant free fluid. Unremarkable body wall soft tissues. Numerous millimetric foci of sclerosis have not appreciably changed in size or number. IMPRESSION: CT Chest: 1. The elongated mass-like opacity in the right middle lobe has not changed in size since 01/05/2021. No newly developed lung mass or infiltrate. No lymphadenopathy above the diaphragm. 2. Sclerotic lesion in the right scapula is no different. Several punctate sclerotic foci elsewhere are unchanged as well. CT Abdomen/Pelvis: 1. No evidence for new metastatic disease below the diaphragm. Millimetric sclerotic foci scattered through the pelvis/proximal femurs more so than lumbar spine are not significantly different in size or number. Electronically signed by: JOSE PERALES MD (04/07/2021 3:04 PM) [facility]
== END ==
LOC: CT 10:21
PROVIDERS: ATTEND Physician Assistant
DX: C34.2 Malignant neoplasm of middle lobe, bronchus or lung (principal)
CPT/HCPCS: 71260; 74177; Q9966; Q9967

== ENCOUNTER → 2021-04-20 | Outpatient (CLI) | payer OTHER ==
[2021-04-20 12:57] LABS: BASO % 0 % (0-3); EOS % 1 % (0-3); HEMATOCRIT 31.7 % (36.0-47.0); HEMOGLOBIN 10.5 g/dL (12.0-15.5); LYMPH # 0.7 x10^3/uL (1.0-4.8); LYMPH % 15 % (24-48); MEAN CORPUSCULAR HEMOGLOBIN 27 pg (25-35); MEAN CORPUSCULAR HGB CONC 33 g/dL (31-37); MEAN CORPUSCULAR VOLUME 80 fL (79-100); MONO # 0.3 x10^3/uL (0.0-1.1); MONO % 7 % (0-9); NEUT # 3.5 x10^3/uL (1.8-7.7); NEUT % 77 % (31-73); PLATELET COUNT 93 x10^3/uL (140-400); RED BLOOD COUNT 3.94 x10^6/uL (3.50-5.40); RED CELL DISTRIBUTION WIDTH 14.9 % (11.5-14.5); WHITE BLOOD COUNT 4.6 x10^3/uL (4.0-11.0)
[2021-04-20 13:11] LABS: CALCIUM 9.1 mg/dL (8.5-10.1); CREATININE 0.8 mg/dL (0.6-1.0); GFR 75.3; POTASSIUM 3.5 mmol/L (3.5-5.1)
[2021-04-20 13:17] LABS: ALBUMIN 3.6 g/dL (3.4-5.0); ALBUMIN/GLOBULIN RATIO 0.8 (1.0-1.7); TOTAL BILIRUBIN 0.8 mg/dL (0.2-1.0)
== END ==
LOC: ONCLAB 12:28
PROVIDERS: ATTEND Internal Medicine Hematology & Oncology
DX: C34.2 Malignant neoplasm of middle lobe, bronchus or lung (principal)
CPT/HCPCS: 36415; 80053; 83615; 85025

== ENCOUNTER → 2021-05-11 | Outpatient (CLI) | payer OTHER ==
--- NOTE | 2021-05-11 11:58 | EKG ---
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
== END ==
LOC: EKG 11:24
PROVIDERS: ATTEND Internal Medicine
DX: C34.2 Malignant neoplasm of middle lobe, bronchus or lung (principal)
CPT/HCPCS: 93005

== ENCOUNTER → 2021-05-11 | Outpatient (CLI) | payer OTHER ==
--- NOTE | 2021-05-11 11:55 | RAD ---
EXAM: Right shoulder sonogram. HISTORY: Palpable lump. TECHNIQUE: Sonographic imaging of the right shoulder at the site of palpable concern was performed. COMPARISON: None. FINDINGS: There is no sonographic finding at the site of palpable concern within the right shoulder s oft tissues. IMPRESSION: Unremarkable shoulder sonogram targeted to the site of palpable concern. Continued clinic al follow-up of palpable abnormalities is recommended. Cross sectional imaging can be performed if th ere is concern for a sonographically occult lesion. Electronically signed by: Shraddha Moralez MD (05/11/2021 11:52 AM) [id number]
== END ==
LOC: US 11:27
PROVIDERS: ATTEND Internal Medicine Hematology & Oncology
DX: R22.31 Localized swelling, mass and lump, right upper limb (principal); C34.2 Malignant neoplasm of middle lobe, bronchus or lung
CPT/HCPCS: 76881

== ENCOUNTER → 2021-05-12 | Outpatient (CLI) | payer OTHER ==
[2021-05-12 13:25] LABS: BASO % 0 % (0-3); EOS # 0.1 x10^3/uL (0.0-0.7); EOS % 2 % (0-3); HEMATOCRIT 31.6 % (36.0-47.0); HEMOGLOBIN 10.3 g/dL (12.0-15.5); LYMPH # 0.9 x10^3/uL (1.0-4.8); LYMPH % 20 % (24-48); MEAN CORPUSCULAR HEMOGLOBIN 26 pg (25-35); MEAN CORPUSCULAR HGB CONC 33 g/dL (31-37); MEAN CORPUSCULAR VOLUME 81 fL (79-100); MONO # 0.4 x10^3/uL (0.0-1.1); MONO % 8 % (0-9); NEUT # 3.3 x10^3/uL (1.8-7.7); NEUT % 70 % (31-73); PLATELET COUNT 93 x10^3/uL (140-400); RED BLOOD COUNT 3.91 x10^6/uL (3.50-5.40); RED CELL DISTRIBUTION WIDTH 15.4 % (11.5-14.5); WHITE BLOOD COUNT 4.8 x10^3/uL (4.0-11.0)
[2021-05-12 13:41] LABS: CALCIUM 8.9 mg/dL (8.5-10.1); GFR 58.2
[2021-05-12 13:47] LABS: ALBUMIN 3.5 g/dL (3.4-5.0); ALBUMIN/GLOBULIN RATIO 0.9 (1.0-1.7); TOTAL BILIRUBIN 0.7 mg/dL (0.2-1.0); TOTAL PROTEIN 7.6 g/dL (6.4-8.2)
== END ==
LOC: ONCLAB 12:58
PROVIDERS: ATTEND Physician Assistant
DX: C34.2 Malignant neoplasm of middle lobe, bronchus or lung (principal)
CPT/HCPCS: 36415; 80053; 85025

== ENCOUNTER → 2021-05-26 | Outpatient (CLI) | payer OTHER ==
[2021-05-26 13:19] LABS: BASO % 0 % (0-3); EOS # 0.1 x10^3/uL (0.0-0.7); EOS % 2 % (0-3); HEMATOCRIT 31.8 % (36.0-47.0); HEMOGLOBIN 10.1 g/dL (12.0-15.5); LYMPH # 0.8 x10^3/uL (1.0-4.8); LYMPH % 18 % (24-48); MEAN CORPUSCULAR HEMOGLOBIN 26 pg (25-35); MEAN CORPUSCULAR HGB CONC 32 g/dL (31-37); MEAN CORPUSCULAR VOLUME 81 fL (79-100); MONO # 0.4 x10^3/uL (0.0-1.1); MONO % 10 % (0-9); NEUT % 70 % (31-73); PLATELET COUNT 89 x10^3/uL (140-400); RED BLOOD COUNT 3.94 x10^6/uL (3.50-5.40); RED CELL DISTRIBUTION WIDTH 15.2 % (11.5-14.5); WHITE BLOOD COUNT 4.3 x10^3/uL (4.0-11.0)
[2021-05-26 13:30] LABS: CALCIUM 8.7 mg/dL (8.5-10.1); CREATININE 0.9 mg/dL (0.6-1.0); GFR 65.8; POTASSIUM 3.9 mmol/L (3.5-5.1)
[2021-05-26 13:39] LABS: ALBUMIN 3.3 g/dL (3.4-5.0); ALBUMIN/GLOBULIN RATIO 0.7 (1.0-1.7); TOTAL BILIRUBIN 0.5 mg/dL (0.2-1.0); TOTAL PROTEIN 7.8 g/dL (6.4-8.2)
[2021-05-26 15:11] LABS: PLT ESTIMATE DECREASED (ADEQUATE)
== END ==
LOC: ONCLAB 13:01
PROVIDERS: ATTEND Internal Medicine Hematology & Oncology
DX: C34.2 Malignant neoplasm of middle lobe, bronchus or lung (principal)
CPT/HCPCS: 36415; 80053; 85025

== ENCOUNTER 2021-06-01 13:11 | Emergency (ER) | payer OTHER ==
[~2021-06-01] VITALS: Ht 152.4 cm; Wt 68.2 kg
--- NOTE | 2021-06-01 14:13 | RAD ---
INDICATION: Reason: swelling of left leg/ Spl. Instructions: / History: COMPARISON: None. TECHNIQUE: Grayscale, color and doppler ultrasound images were obtained of the left lower extremity v enous vasculature. LEFT: No thrombus identified in the common femoral vein, femoral vein, popliteal vein or visualized calf ve ins. IMPRESSION: * No thrombus identified in deep venous system of the left lower extremity. Electronically signed by: Carlos Mitchell MD (06/01/2021 2:11 PM) [id number]
[2021-06-01] MEDS ORDERED: IOHEXOL 350 MG/ML 100 ML VIAL. IV ONE (14:45)
[2021-06-01] MEDS ORDERED: CONTRAST GIVEN. MC PRN (14:45)
--- NOTE | 2021-06-01 15:40 | RAD ---
Exam: CT of chest with contrast INDICATION: Shortness of breath, chest pain TECHNIQUE: Sequential axial images through the chest obtained following the administration of 100 mL of Isovue-370 IV contrast. Sagittal and coronal reformatted images were reconstructed from the axial data and reviewed. 3-D reformatted images were reconstructed from the axial data and reviewed. Exposure: One or more of the following in the visualized dose reduction techniques were utilized for this examination: 1. Automated exposure control 2. Adjustment of the MA and/or KV according to patient size 3. Use of iterative of reconstructive technique Comparisons: 04/07/2021 FINDINGS: Visualized portions of the thyroid are unremarkable. No enlarged mediastinal lymph nodes are identifi ed. Heart is mildly enlarged. No pericardial effusion. Thoracic aorta has a normal course and caliber. Pu lmonary artery is not enlarged. No pulmonary embolus identified within the main, lobar or segmental p ulmonary arteries. Airways are patent. Masslike opacity in the right upper lobe which measures approximately 2.7 x 1.9 c m which appears mildly increased in size when compared to the prior study. No pneumothorax. No pleural effusion or thickening. Visualized upper abdomen is unremarkable. Several sclerotic foci noted within the osseous structures, largest at the right scapula/acetabulum w hich is not significantly changed when compared to the prior study. IMPRESSION: 1. No pulmonary embolus identified within the main, lobar or segmental pulmonary arteries. 2. Mildly increased size of masslike opacity in the right upper lobe when compared to the prior exam . 3. Redemonstration of numerous sclerotic foci within the osseous structures without significant wilkinson ge from prior study. Electronically signed by: Jeff Snow MD (06/01/2021 3:38 PM) [facility]
--- NOTE | 2021-06-01 16:16 | ED.ADGEN ---
Past Medical History Additional Past Medical Histor: LUNG/BREAST/BONE CA, CARDIOMEGALY, THORACIC AORTIC ECTASIA, CYSTITIS Past Surgical History: Hysterectomy General Adult EDM: Chief Complaint: CHEST PAIN-NON CARDIAC NATURE HPI: HPI: Patient is a 50-year-old female presents to the emergency room complaining of intermittent right-sided sharp chest pain since last night. She rates the pain as mild. She denies any associated shortness of breath. She saw her oncologist today and patient has missed several doses of her Plavix. She has had a history of hypercoagulable state in the past. Oncology sent her here to be evaluated f or possible pulmonary embolism or DVT. Patient denies any associated symptoms. She has not had any cough, shortness of breath, URI symptoms, fever, chills, nausea, vomiting, skin changes. She has been taking her chemotherapy. Review of Systems: Review of Systems: Complete ROS is negative unless otherwise documented in HPI Current Medications: Current Medications Medications (Trade) Dose Ordered Sig/Charley Start Time Stop Time Status Last Admin Dose Admin Info (CONTRAST GIVEN -- Rx MONITORING) 1 each PRN DAILY PRN 06/01/21 14:45 06/01/21 16:39 DC Iohexol (Omnipaque 350 Mg/ml) 100 ml 1X ONCE 06/01/21 14:45 06/01/21 14:46 DC 06/01/21 15:20 100 ML Allergies: Allergies: Allergies Coded Allergies Type Severity Reaction Last Updated Verified No Known Drug Allergies 09/08/20 No Physical Exam: PE: General: Awake, alert, NAD. Well Nourished, well hydrated. Cooperative HEENT: Atraumatic, EOMI, PERRL, airway patent, moist oral mucosa Neck: Supple, trachea midline Respiratory: CTA bilaterally, normal effort, no wheezing/crackles CV: RRR, no murmur, cap refill <2 GI: Soft, nondistended, nontender, no masses MSK: No obvious deformities Skin: Warm, dry, intact Neuro: A&O x3, speech NL, sensory and motor grossly intact, no focal deficits Psych: Normal affect, normal mood, not suicidal or homicidal Current Patient Data: Labs: Laboratory Tests Test 06/01/21 12:45 06/01/21 16:20 Troponin I Quantitative < 0.017 ng/mL (0.000-0.055) VC-Xrr-S-Type Natriuretic Peptide 410 pg/mL (0-124) H Urine Collection Type Unknown Urine Color Yellow Urine Clarity Clear Urine pH 7.5 (<5.0-8.0) Urine Specific [place] 1.010 (1.000-1.030) Urine Protein Negative mg/dL (NEG-TRACE) Urine Glucose (UA) Negative mg/dL (NEG) Urine Ketones (Stick) Negative mg/dL (NEG) Urine Blood Negative (NEG) Urine Nitrite Negative (NEG) Urine Bilirubin Negative (NEG) Urine Urobilinogen Dipstick 0.2 mg/dL (0.2 mg/dL) Urine Leukocyte Esterase Negative (NEG) Urine RBC 0 /HPF (0-2) Urine WBC 0 /HPF (0-4) Urine Squamous Epithelial Cells Few /LPF Urine Bacteria 0 /HPF (0-FEW) Vital Signs: Vital Signs Date Time Temp Pulse Resp B/P (MAP) Pulse Ox O2 Delivery O2 Flow Rate FiO2 06/01/21 16:29 62 15 162/86 (111) 97 Room Air 06/01/21 14:20 98.3 98.3 EKG: EKG: [] Heart Score: C/O Chest Pain: Yes HEART Score for Chest Pain: HEART Score for Chest Pain Response (Comments) Value History Slighlty/Non-Suspicious 0 ECG Normal 0 Age >45 - < 65 1 Risk Factors 1 or 2 Risk Factors 1 Troponin < Normal Limit 0 Total 2 Risk Factors: Risk Factors: DM, Current or recent (<one month) smoker, HTN, HLP, family history of CAD, obesity. Risk Scores: Score 0 - 3: 2.5% MACE over next 6 weeks - Discharge Home Score 4 - 6: 20.3% MACE over next 6 weeks - Admit for Clinical Observation Score 7 - 10: 72.7% MACE over next 6 weeks - Early Invasive Strategies Radiology/Procedures: Radiology/Procedures: [] Course & Med Decision Making: Course & Med Decision Making Pertinent Labs and Imaging studies reviewed. (See chart for details) Patient is a 50-year-old female with past medical history of lung cancer who presents to the emergency room with atypical chest pain. Patient is overall well-appearing with normal vitals. I discussed the case with her oncologist. DVT ultrasound of the left leg and CT angio of the chest will be done to evaluate for any signs of DVT. CT and ultrasound are negative. Patient's lab work from oncology clinic today is normal. Troponin and BNP are normal. Patient is feeling normal at this time. She will follow up with her oncologist in the next couple of days. Patient's test results and vitals while in the ED were fully reviewed and discussed with the patient. Patient is stable and at this time does not need admission to the hospital. We have discussed strict return precautions and the importance of following up with their Primary Care Physician. Patient stated understanding and was given an opportunity to ask any questions. Patient is in agreement with plan. Dragon Disclaimer: Dragon Disclaimer: This electronic medical record was generated, in whole or in part, using a voice recognition dictation system. Departure Departure Impression: Primary Impression: Chest pain Additional Impression: Lung cancer Disposition: HOME / SELF CARE / HOMELESS Condition: STABLE Referrals: NO PCP (PCP) Patient Instructions: Chest Pain (Nonspecific) Problem Qualifiers WILBERT TARANGO MD Jun 01, 2021 16:16
[2021-06-01 16:29] VITALS: BP 162/86
[2021-06-01 16:33] LABS: BILIRUBIN,URINE NEGATIVE (NEG); CLARITY,URINE CLEAR; COLOR,URINE YELLOW; NITRITE,URINE NEGATIVE (NEG); PH,URINE 7.5 (<5.0-8.0); PROTEIN,URINE NEGATIVE (NEG-TRACE); UROBILINOGEN,URINE 0.2 mg/dL (0.2 mg/dL)
[2021-06-01 16:48] LABS: BACTERIA,URINE 0 /HPF (0-FEW); RBC,URINE 0 /HPF (0-2); WBC,URINE 0 /HPF (0-4)
== END 2021-06-01 16:38 | disposition home or self-care (01) ==
LOC: ER 13:11
DX: R07.89 Other chest pain (principal); Z85.118 Personal history of other malignant neoplasm of bronchus and lung
CPT/HCPCS: 36415; 71275; 81001; 83880; 84484; 93971; 99285; Q9967

== ENCOUNTER → 2021-06-01 | Outpatient (CLI) | payer OTHER ==
[2021-06-01 13:21] LABS: BASO % 0 % (0-3); EOS % 1 % (0-3); HEMATOCRIT 31.5 % (36.0-47.0); HEMOGLOBIN 10.2 g/dL (12.0-15.5); LYMPH # 0.7 x10^3/uL (1.0-4.8); LYMPH % 15 % (24-48); MEAN CORPUSCULAR HEMOGLOBIN 26 pg (25-35); MEAN CORPUSCULAR HGB CONC 32 g/dL (31-37); MEAN CORPUSCULAR VOLUME 79 fL (79-100); MONO # 0.4 x10^3/uL (0.0-1.1); MONO % 8 % (0-9); NEUT # 3.9 x10^3/uL (1.8-7.7); NEUT % 76 % (31-73); PLATELET COUNT 112 x10^3/uL (140-400); RED BLOOD COUNT 3.99 x10^6/uL (3.50-5.40); RED CELL DISTRIBUTION WIDTH 15.1 % (11.5-14.5); WHITE BLOOD COUNT 5.1 x10^3/uL (4.0-11.0)
[2021-06-01 13:42] LABS: CALCIUM 8.2 mg/dL (8.5-10.1); CREATININE 0.7 mg/dL (0.6-1.0); GFR 87.9; POTASSIUM 3.7 mmol/L (3.5-5.1)
[2021-06-01 13:50] LABS: ALBUMIN 3.2 g/dL (3.4-5.0); ALBUMIN/GLOBULIN RATIO 0.7 (1.0-1.7); TOTAL BILIRUBIN 0.6 mg/dL (0.2-1.0); TOTAL PROTEIN 7.6 g/dL (6.4-8.2)
== END ==
LOC: ONCLAB 12:41
PROVIDERS: ATTEND Internal Medicine Hematology & Oncology
DX: C34.2 Malignant neoplasm of middle lobe, bronchus or lung (principal)
CPT/HCPCS: 36415; 80053; 85025

== ENCOUNTER → 2021-06-09 | Outpatient (CLI) | payer OTHER ==
[2021-06-01 16:29] VITALS: BP 162/86
[2021-06-09 13:32] LABS: CREATININE 0.7 mg/dL (0.6-1.0); GFR 87.9; POTASSIUM 4.5 mmol/L (3.5-5.1)
[2021-06-09 13:38] LABS: ALBUMIN 3.5 g/dL (3.4-5.0); ALBUMIN/GLOBULIN RATIO 0.8 (1.0-1.7); TOTAL BILIRUBIN 0.8 mg/dL (0.2-1.0); TOTAL PROTEIN 7.8 g/dL (6.4-8.2)
[2021-06-09 13:51] LABS: BASO % 0 % (0-3); EOS # 0.1 x10^3/uL (0.0-0.7); EOS % 2 % (0-3); HEMATOCRIT 31.3 % (36.0-47.0); HEMOGLOBIN 10.1 g/dL (12.0-15.5); LYMPH # 0.9 x10^3/uL (1.0-4.8); LYMPH % 19 % (24-48); MEAN CORPUSCULAR HEMOGLOBIN 26 pg (25-35); MEAN CORPUSCULAR HGB CONC 32 g/dL (31-37); MEAN CORPUSCULAR VOLUME 80 fL (79-100); MONO # 0.5 x10^3/uL (0.0-1.1); MONO % 12 % (0-9); NEUT # 2.9 x10^3/uL (1.8-7.7); NEUT % 66 % (31-73); PLATELET COUNT 166 x10^3/uL (140-400); RED BLOOD COUNT 3.94 x10^6/uL (3.50-5.40); RED CELL DISTRIBUTION WIDTH 15.5 % (11.5-14.5); WHITE BLOOD COUNT 4.4 x10^3/uL (4.0-11.0)
== END ==
LOC: ONCLAB 12:52
PROVIDERS: ATTEND Internal Medicine Hematology & Oncology
DX: C34.2 Malignant neoplasm of middle lobe, bronchus or lung (principal)
CPT/HCPCS: 36415; 80053; 85025

== ENCOUNTER 2021-06-21 20:43 | Emergency (ER) | payer OTHER ==
[~2021-06-21] VITALS: Ht 162.6 cm; Wt 63.6 kg
[2021-06-21] MEDS ORDERED: IV NORMAL SALINE 1000ML BAG 1,000 ML IV ONE (21:00)
[2021-06-21] MEDS ORDERED: fentaNYL PF VIAL 100 MCG/2 ML VIAL IVP ONE (21:00)
[2021-06-21 21:31] LABS: BASO % 0 % (0-3); EOS # 0.1 x10^3/uL (0.0-0.7); EOS % 2 % (0-3); HEMATOCRIT 29.7 % (36.0-47.0); HEMOGLOBIN 9.7 g/dL (12.0-15.5); LYMPH # 0.7 x10^3/uL (1.0-4.8); LYMPH % 11 % (24-48); MEAN CORPUSCULAR HEMOGLOBIN 26 pg (25-35); MEAN CORPUSCULAR HGB CONC 33 g/dL (31-37); MEAN CORPUSCULAR VOLUME 78 fL (79-100); MONO # 0.6 x10^3/uL (0.0-1.1); MONO % 10 % (0-9); NEUT # 4.7 x10^3/uL (1.8-7.7); NEUT % 77 % (31-73); PLATELET COUNT 142 x10^3/uL (140-400); RED BLOOD COUNT 3.79 x10^6/uL (3.50-5.40); RED CELL DISTRIBUTION WIDTH 15.5 % (11.5-14.5); WHITE BLOOD COUNT 6.2 x10^3/uL (4.0-11.0)
--- NOTE | 2021-06-21 21:34 | RAD ---
CT head without contrast dated 06/21/2021 9:31 PM Comparison: None CLINICAL INDICATION: Sudden onset of headache TECHNIQUE: Contiguous axial imaging of the head was performed from skull base to vertex. One or more of the following individualized dose reduction techniques were utilized for this examinat ion: 1. Automated exposure control 2. Adjustment of the mA and/or kV according to patient size 3. Use of iterative reconstruction technique. FINDINGS: Ventricles and sulci are within normal limits for age. No midline shift or mass effect. Brain parench yma is of normal attenuation. No hemorrhage or extra-axial collection. Posterior fossa and brainstem unremarkable. Minimal mucosal thickening of the ethmoid air cells. The visualized paranasal sinuses and mastoid air cells are otherwise clear. No apparent calvarial abnormality. IMPRESSION: 1. No evidence of acute intracranial hemorrhage or mass. 2. Mild sinus disease. Electronically signed by: Senthil Chadwick MD (06/21/2021 9:32 PM) ANTONIO
[2021-06-21 21:41] LABS: CALCIUM 8.3 mg/dL (8.5-10.1); CREATININE 0.8 mg/dL (0.6-1.0); GFR 75.3; POTASSIUM 3.6 mmol/L (3.5-5.1)
--- NOTE | 2021-06-21 22:07 | PHYS DOC ---
Past Medical History Additional Past Medical Histor: LUNG/BREAST/BONE CA, CARDIOMEGALY, THORACIC AORTIC ECTASIA, CYSTITIS Past Surgical History: Hysterectomy Smoking Status: Former Smoker Alcohol Use: None Drug Use: None General Adult EDM: Chief Complaint: HEADACHE Problems: (1) Multiple complaints HPI: HPI: 50-year-old female with a history of lung cancer presents to the emergency department complaining of multiple complaints including headache which started suddenly this evening a few hours ago, chest pain in the middle of her chest th at does not radiate, not affected by anything, bone pain described as body aches. She has an EGD procedure scheduled tomorrow with GI. She denies any fever chills Covid contacts shortness of breath cough. Review of Systems: Review of Systems: Constitutional: Admits to fatigue, denies fever chills. Eyes: Denies change in vision, pain. HENT: Denies congestion or sore throat. Respiratory: Denies cough or shortness of breath. Cardiovascular: Admits to chest pain, denies edema or palpitations. GI: Admits to constipation, denies nausea vomiting or diarrhea. : Denies change in urination, dysuria. Musculoskeletal: Denies extremity pain, or trauma. Skin: Denies rash, skin change. Neurologic: Admits to headache, denies focal weakness. Psychiatric: Denies depression or anxiety. All other systems reviewed as negative except for what was mentioned in the HPI. Heart Score: C/O Chest Pain: Yes HEART Score for Chest Pain: HEART Score for Chest Pain Response (Comments) Value History Slighlty/Non-Suspicious 0 ECG Normal 0 Age >45 - < 65 1 Risk Factors 1 or 2 Risk Factors 1 Troponin < Normal Limit 0 Total 2 Family History: Family History: Noncontributory Current Medications: My Orders - BART AGUERO DO Procedure Category Date Status Time Ct Head Wo Contrast CT 06/21/21 Resulted 21:00 Cbc W Autodiff LAB 06/21/21 Complete 21:00 Basic Metabolic Panel LAB 06/21/21 Complete 21:00 Chest Ap Only RAD 06/21/21 Logged 21:00 Iv Normal Saline PHA 06/21/21 Complete 1000ml Bag (Iv Sodium 21:00 Fentanyl Pf Vial PHA 06/21/21 Complete (Fentanyl 2ml Vial) 21:00 Ua, Cult If Indicated LAB 06/21/21 Logged 22:02 Nt-Pro Bnp LAB 06/21/21 Logged 22:02 Troponini LAB 06/21/21 Logged 22:02 Troponini LAB 06/22/21 Verified 01:02 Troponini LAB 06/22/21 Verified 04:02 12 Lead Ekg EKG 06/21/21 Logged 22:02 12 Lead Ekg EKG 06/21/21 Logged 22:32 D-Dimer LAB 06/21/21 Logged 22:04 Sars Cov2 (Anabel) LAB 06/21/21 Logged 22:04 Sars Antigen Viry Rapid LAB 06/21/21 Logged 22:04 Allergies: Allergies: Allergies Coded Allergies Type Severity Reaction Last Updated Verified No Known Drug Allergies 09/08/20 No Physical Exam: PE: Constitutional: No acute distress, non-toxic appearance. HENT: Atraumatic, bilateral external ears normal, nose normal. Eyes: PERRLA, EOMI, conjunctiva normal, no discharge. Neck: Normal range of motion, supple, no stridor. Cardiovascular: Heart rate regular rhythm. 2+ radial pulses Lungs & Thorax: No respiratory distress, symmetrical expansion. Bilateral breath sounds clear to auscultation Abdomen: Soft, no tenderness Skin: Warm, dry. Extremities: No tenderness, no cyanosis, ROM intact, no edema. Neurologic: Alert and oriented X 3, cranial nerves II through XII are intact, normal motor function, normal sensory function, no focal deficits noted. Non ataxic gait. GCS 15. Psychologic: Affect normal, judgment normal, mood normal. Current Patient Data: Labs: Laboratory Tests Test 06/21/21 21:24 06/21/21 22:20 White Blood Count 6.2 x10^3/uL (4.0-11.0) Red Blood Count 3.79 x10^6/uL (3.50-5.40) Hemoglobin 9.7 g/dL (12.0-15.5) Hematocrit 29.7 % (36.0-47.0) Mean Corpuscular Volume 78 fL (79-100) Mean Corpuscular Hemoglobin 26 pg (25-35) Mean Corpuscular Hemoglobin Concent 33 g/dL (31-37) Red Cell Distribution Width 15.5 % (11.5-14.5) Platelet Count 142 x10^3/uL (140-400) Neutrophils (%) (Auto) 77 % (31-73) Lymphocytes (%) (Auto) 11 % (24-48) Monocytes (%) (Auto) 10 % (0-9) Eosinophils (%) (Auto) 2 % (0-3) Basophils (%) (Auto) 0 % (0-3) Neutrophils # (Auto) 4.7 x10^3/uL (1.8-7.7) Lymphocytes # (Auto) 0.7 x10^3/uL (1.0-4.8) Monocytes # (Auto) 0.6 x10^3/uL (0.0-1.1) Eosinophils # (Auto) 0.1 x10^3/uL (0.0-0.7) Basophils # (Auto) 0.0 x10^3/uL (0.0-0.2) Sodium Level 141 mmol/L (136-145) Potassium Level 3.6 mmol/L (3.5-5.1) Chloride Level 107 mmol/L (98-107) Carbon Dioxide Level 26 mmol/L (21-32) Anion Gap 8 (6-14) Blood Urea Nitrogen 9 mg/dL (7-20) Creatinine 0.8 mg/dL (0.6-1.0) Estimated GFR (Cockcroft-Gault) 75.3 Glucose Level 131 mg/dL (70-99) Calcium Level 8.3 mg/dL (8.5-10.1) Troponin I Quantitative < 0.017 ng/mL (0.000-0.055) CM-Tqn-T-Type Natriuretic Peptide 240 pg/mL (0-124) D-Dimer (Camille) 0.46 ug/mlFEU (0.00-0.50) SARS-CoV-2 Antigen (Rapid) Negative (NEGATIVE) Vital Signs: Vital Signs Date Time Temp Pulse Resp B/P (MAP) Pulse Ox O2 Delivery O2 Flow Rate FiO2 06/21/21 21:17 16 99 Room Air 06/21/21 20:55 98.6 61 153/77 (111) 98.6 EKG: EKG: Normal sinus rhythm rate of 60, no ST-T wave changes, no ectopic beats, normal axis, normal SD, QRS, and QTc intervals. Impression: Normal EKG. interpreted by me, Bart Brown, D.O. Radiology/Procedures: Radiology/Procedures: PROCEDURE: CHEST AP ONLY Exam Date: 06/21/2021 9:09 PM XR CHEST 1V Indication: Reason: lung ca, not feeling well / Spl. Instructions: / History: . Comparison: CT from June 01, 2021 FINDINGS/ IMPRESSION: 1.9 cm nodule seen in the right lung, which was also present on the prior CT from May 2021. Left basilar subsegmental atelectasis is noted. No pleural effusion or pneumothorax. The cardiac silhouette is enlarged without congestion. Electronically signed by: Lazaro Norris MD (06/21/2021 10:35 PM) PROCEDURE: CT HEAD WO CONTRAST CT head without contrast dated 06/21/2021 9:31 PM Comparison: None CLINICAL INDICATION: Sudden onset of headache TECHNIQUE: Contiguous axial imaging of the head was performed from skull base to vertex. One or more of the following individualized dose reduction techniques were uti lized for this examination: 1. Automated exposure control 2. Adjustment of the mA and/or kV according to patient size 3. Use of iterative reconstruction technique. FINDINGS: Ventricles and sulci are within normal limits for age. No midline shift or mass effect. Brain parenchyma is of normal attenuation. No hemorrhage or extra-axial collection. Posterior fossa and brainstem unremarkable. Minimal mucosal thickening of the ethmoid air cells. The visualized paranasal sinuses and mastoid air cells are otherwise clear. No apparent calvarial abnormality. IMPRESSION: 1. No evidence of acute intracranial hemorrhage or mass. 2. Mild sinus disease. Electronically signed by: Senthil Chadwick MD (06/21/2021 9:32 PM) Course & Med Decision Making: Course & Med Decision Making Patient with negative objective work-up in the emergency department. Heart scor e 2, patient was reexamined at 2300 and requested discharge to home. She has an EGD procedure tomorrow. She felt much better after interventions. Departure Departure Impression: Primary Impression: Headache Disposition: 01 HOME / SELF CARE / HOMELESS Condition: IMPROVED Referrals: HAROON CAMARGO MD (PCP) Patient Instructions: General Headache Without Cause, [id number] Additional Instructions: You were seen in the Emergency Department for headache. Please drink plenty of fluids -- at least 6-8 glasses of water per day. Dehydration can often precipitate headaches. Avoid alcohol and sugary or caffeinated beverages. Return to the Emergency Department, day or night, if you develop recurrent or worsening headache, vision changes, difficulty eating or drinking due to nausea or vomiting, weakness or numbness in the limbs, difficulty walking or fever. BART AGUERO DO Jun 21, 2021 22:07
--- NOTE | 2021-06-21 22:37 | RAD ---
Exam Date: 06/21/2021 9:09 PM XR CHEST 1V Indication: Reason: lung ca, not feeling well / Spl. Instructions: / History: . Comparison: CT from June 01, 2021 FINDINGS/ IMPRESSION: 1.9 cm nodule seen in the right lung, which was also present on the prior CT from May 2021. Left ba silar subsegmental atelectasis is noted. No pleural effusion or pneumothorax. The cardiac silhouette is enlarged without congestion. Electronically signed by: Lazaro Norris MD (06/21/2021 10:35 PM) MARILYN
[2021-06-21 22:55] VITALS: BP 157/72
[2021-06-21 23:44] LABS: BILIRUBIN,URINE NEGATIVE (NEG); CLARITY,URINE CLEAR; COLOR,URINE YELLOW; NITRITE,URINE NEGATIVE (NEG); PROTEIN,URINE NEGATIVE (NEG-TRACE); UROBILINOGEN,URINE 0.2 mg/dL (0.2 mg/dL)
[2021-06-21 23:49] LABS: BACTERIA,URINE 0 /HPF (0-FEW); RBC,URINE OCC /HPF (0-2); WBC,URINE OCC /HPF (0-4)
--- NOTE | 2021-06-22 06:31 | EKG ---
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
[2021-06-22] MEDS ORDERED: ONDA4TAB12 PO (14:20)
[2021-06-22] MEDS ORDERED: MORP15TA PO (14:20)
[2021-06-22] MEDS ORDERED: CETI10TA16 PO (14:20)
[2021-06-22] MEDS ORDERED: DABI150C PO (14:20)
[2021-06-22] MEDS ORDERED: DENO120V SQ (14:20)
[2021-06-22] MEDS ORDERED: OSIM80TA PO (14:20)
[2021-06-22] MEDS ORDERED: POLY119P4 PO (14:20)
[2021-06-22] MEDS ORDERED: SERT25TA PO (14:20)
[2021-06-22] MEDS ORDERED: OXYC20TA34 PO (14:20)
[2021-06-22] MEDS ORDERED: SENN8.8S13 PO (14:20)
== END 2021-06-21 23:40 | disposition home or self-care (01) ==
LOC: ER 20:43
DX: R51.9 Headache, unspecified (principal); Z20.822 Contact with and (suspected) exposure to COVID-19; R07.89 Other chest pain; Z87.891 Personal history of nicotine dependence
CPT/HCPCS: 36415; 70450; 71045; 80048; 81001; 83880; 84484; 85025; 85379; 87426; 93005; 96361; 96374; 99285; J3010; J7030; U0003; U0005

== ENCOUNTER → 2021-06-22 | Day surgery (SDC) | payer OTHER ==
[~2021-06-22] VITALS: Ht 160 cm; Wt 58.5 kg
[~2021-06-22] MED LIST changes: +CETI10TA16 PO; +DABI150C PO; +DENO120V SQ; -IOHEXOL 240 MG/ML 50ML VIAL. PO ONE; -IOHEXOL 300 MG/ML 100ML VIAL. IV ONE; +IV RINGERS,LACTATED 1000ML 1,000 ML IV SCH; +LIDOCAINE 2% PF 5 ML VIAL. ONE; +MORP15TA PO; +ONDA4TAB12 PO; +OSIM80TA PO; +OXYC20TA34 PO; +POLY119P4 PO; +PROPOFOL 10 MG/ML (20ML) VIAL. IV ONE; +SENN8.8S13 PO; +SERT25TA PO
[2021-06-22 14:25] VITALS: BP 135/71
--- NOTE | 2021-06-22 15:45 | PDOC4 ---
PROCEDURE Procedure EGD/dilation Indication: Dysphagia Meds: per anesthesia Findings: E--Grade A esophagitis distally. No obstruction to scope passage. G--mild pre-pyloric erythema, biopsied. D--normal to second portion. Empirically dilated with 52F [place] w/o resistance. Ursula. well. IMP: Gerd Non-specific antral erythema. REC: Trial of omeprazole 40mg daily. Await path. Resume home meds and diet. F/u with me in 2 weeks. If still issues, consider barium swallow. TERRI PANCHAL MD Jun 22, 2021 15:45
[2021-06-22 15:58] VITALS: BP 169/77
--- NOTE | 2021-06-24 15:07 | PATHOLOGY ---
[facility] Accession Number: [id number] . 01 Material submitted: . stomach - ANTRUM BIOPSY . 01 Clinical history: . DYSPHAGIA EGD . 02 Diagnosis: Gastric biopsy, antrum: - Chronic gastritis, mild. (JPM:carol; 06/24/2021) S 06/24/2021 0909 Local . 02 Comment: Sections of the gastric antral biopsy show congestion, mild edema, and mild chronic inflammation. A properly controlled immunoperoxidase stain for Helicobacter is negative for Helicobacter organisms. (JPM:carol; 06/24/2021) . Special stain performed: Immunoperoxidase stain for Helicobacter . 02 Electronically signed: . Celestino Murray MD, Pathologist NPI- [id number] . 01 Gross description: . The specimen is received in formalin, labeled "Bharati Brady, antrum biopsy". Received is a single segment of pale patel tissue measuring 0.5 cm in maximum dimensions. The specimen is submitted entirely in cassette A1. ([facility]; 06/23/2021) NRI/NRI 06/23/2021 1515 Local . 02 Pathologist provided ICD-10: K29.50 . 02 CPT . 509242, [id number] Specimen Comment: A courtesy copy of this report has been sent to [phone] Specimen Comment: Report sent to / DR CAMARGO Performed at: 01 [facility] [address], [place] [id number] MD Mahin Champagne MD Phone: [phone] Performed at: 02 [facility] [address], [place] [id number] MD Celestino Murray MD Phone: [phone]
== END | disposition home or self-care (01) ==
LOC: ENDOS 13:30
PROVIDERS: ATTEND Internal Medicine Gastroenterology
DX: R13.10 Dysphagia, unspecified (principal); K21.00 Gastro-esophageal reflux disease with esophagitis, without bleeding; K31.89 Other diseases of stomach and duodenum; K29.50 Unspecified chronic gastritis without bleeding; F41.9 Anxiety disorder, unspecified; F32.9 Major depressive disorder, single episode, unspecified; Z98.51 Tubal ligation status; Z98.890 Other specified postprocedural states; Z79.899 Other long term (current) drug therapy
CPT/HCPCS: 43239; 43450; J2704

== ENCOUNTER 2021-06-23 07:24 | Observation (INO) | payer OTHER ==
[~2021-06-23] VITALS: Ht 172.7 cm; Wt 65.0 kg
[~2021-06-23 07:24] MED LIST changes: -IV RINGERS,LACTATED 1000ML 1,000 ML IV SCH; -LIDOCAINE 2% PF 5 ML VIAL. ONE; -PROPOFOL 10 MG/ML (20ML) VIAL. IV ONE
[2021-06-23] MEDS ORDERED: IV NORMAL SALINE 1000ML BAG 1,000 ML IV ONE (07:30)
--- NOTE | 2021-06-23 07:37 | PHYS DOC ---
Past Medical History Additional Past Medical Histor: LUNG/BREAST/BONE CA, CARDIOMEGALY, THORACIC AORTIC ECTASIA, CYSTITIS Past Surgical History: Hysterectomy Smoking Status: Former Smoker Alcohol Use: None Drug Use: None General Adult HPI: HPI: Patient is a 50 year old female with history of metastatic lung cancer and EGD yesterday who presents with abdominal pain, nausea/vomiting, diarrhea. States that this is been going on for 3 days. Was seen in the ED 2 days ago for a headache and other similar symptoms. [place] better after treatment. Had a negative head CT. Was discharged home. Went to her EGD that was scheduled for yesterday which showed inflammation in her antrum, but was otherwise unremarkable. States she has not been able to eat or drink much. Has been vomiting frequently. Complains of pain in her upper abdomen in the middle. Review of Systems: Review of Systems: Constitutional: Denies fever or chills. [] Eyes: Denies change in visual acuity. [] HENT: Denies nasal congestion or sore throat. [] Respiratory: Denies cough or shortness of breath. [] Cardiovascular: Denies chest pain or edema. [] GI: +Abdominal pain, nausea, vomiting.. [] : Denies dysuria. [] Musculoskeletal: Denies back pain or joint pain. [] Integument: Denies rash. [] Neurologic: Denies headache, focal weakness or sensory changes. [] Endocrine: Denies polyuria or polydipsia. [] Lymphatic: Denies swollen glands. [] Psychiatric: Denies depression or anxiety. [] Heart Score: C/O Chest Pain: N/A Risk Factors: Risk Factors: DM, Current or recent (<one month) smoker, HTN, HLP, family history of CAD, obesity. Risk Scores: Score 0 - 3: 2.5% MACE over next 6 weeks - Discharge Home Score 4 - 6: 20.3% MACE over next 6 weeks - Admit for Clinical Observation Score 7 - 10: 72.7% MACE over next 6 weeks - Early Invasive Strategies Family History: Family History: No pertinent family history Current Medications: Current Medications Medications (Trade) Dose Ordered Sig/Charley Start Time Stop Time Status Last Admin Dose Admin Hydromorphone HCl (Dilaudid) 1 mg 1X ONCE 06/23/21 08:00 06/23/21 08:01 Ondansetron HCl (Zofran Odt) 4 mg 1X ONCE 06/23/21 08:00 06/23/21 08:01 Sodium Chloride 1,000 ml @ 1,000 mls/hr 1X ONCE 06/23/21 07:30 06/23/21 08:29 Allergies: Allergies: Allergies Coded Allergies Type Severity Reaction Last Updated Verified No Known Drug Allergies 06/22/21 No Physical Exam: PE: Constitutional: Writhing in bed, crying. Clutching upper abdomen. [] HENT: Normocephalic, atraumatic [] Eyes: conjunctiva normal, no discharge. [] Neck: Moving neck side to side freely [] Cardiovascular: regular rhythm, no murmur [] Lungs & Thorax: Bilateral breath sounds clear to auscultation [] Abdomen: Soft. Voluntary guarding upper abdominal tenderness to palpation. Patient cries in pain with palpation. [] Skin: Warm, dry, no erythema, no rash. [] Back: No tenderness, no CVA tenderness. [] Extremities: No tenderness, no cyanosis, no clubbing, ROM intact, no edema. [] Neurologic: Alert and oriented X 3, normal motor function, normal sensory funct ion, no focal deficits noted. [] Psychologic: Affect normal, judgement normal, mood normal. [] EKG: EKG: [] Radiology/Procedures: Radiology/Procedures: [] Impression: [facility] [address] [facility] [place], [place] [id number] IMAGING REPORT Signed PATIENT: NOEL TILLMAN ACCOUNT: [id number] : 1970 LOCATION: ER AGE: 50 SEX: F EXAM STATUS: REG ER ORD. PHYSICIAN: SHAYAN JOLLY MD REASON: severe upper abdominal pain, EGD yesterday PROCEDURE: CT ABD PELV W/ IV CONTRST ONLY INDICATION: Reason: severe upper abdominal pain, EGD yesterday / Spl. Instructions: IV omni 300 75 mls / History: . COMPARISON: December 2020 TECHNIQUE: Axial CT images obtained through the abdomen and pelvis with contrast. One or more of the following individualized dose reduction techniques were utilized for this examination: 1. Automated exposure control; 2. Adjustment of the mA and/or kV according to patient size; 3. Use of iterative reconstruction technique. FINDINGS: Right atrium partially seen and prominent in size. Scattered calcific atherosclerosis. No intrahepatic bile duct dilation. No pancreatic fluid collection. Spleen unremarkable. No hydronephrosis. Urinary bladder partially distended with thickened wall but similar to prior. No periappendiceal inflammatory changes. No dilated loops of bowel to suggest obstruction. No intraperitoneal free air. Numerous sclerotic foci are again seen scattered throughout the vertebral bodies. IMPRESSION: * Motion is identified at the upper abdomen which limits evaluation of the region. Just medial to the proximal duodenum and posterior to the antrum of the stomach there is a 13 mm focus of air seen. This is within a region of motion artifact. This could be secondary to some air within the lumen of the duodenum with superimposed motion artifact but given the patient's pain within the area pathologic causes such as localized perforation or ulcer is not excluded. Another possible cause would include a small diverticulum within the area. Further workup option would include either upper GI examination or administration of oral contrast with focused CT through the area. * Repeat demonstration of some thickening of the urinary bladder wall. * Repeat demonstration of sclerotic foci scattered throughout the vertebral bodies and pelvis. Electronically signed by: Natalie Winston MD (06/23/2021 9:01 AM) [id number] DICTATED and SIGNED BY: NATALIE WINSTON MD DATE: 06/23/21 [id number] 0 Course & Med Decision Making: Course & Med Decision Making Pertinent Labs and Imaging studies reviewed. (See chart for details) Patient 50-year-old female with history of metastatic lung cancer and recent EGD (yesterday) who presents with abdominal pain, nausea/vomiting, and diarrhea. History is limited by language barrier and patient's severe symptoms, but it seems that the symptoms have been ongoing for 3 days. We will treat pain and nausea with Dilaudid and Zofran. IV fluids for dehydration. Work-up will include CBC, CMP, lipase, UA, as well as CT abdomen pelvis. DDx includes pancreatitis, biliary disease, gastritis which was demonstrated on EGD yesterday, and complication of EGD such as perforation. 0736 CT results with concern for perforation near the duodenum versus normal finding versus diverticulum. Reassuringly her pain is improved, her white count is normal, but given her recent EGD this will need to be monitored closely. I will call to discuss with general surgery, GI, and plan on admitting for a minimum of observation. 0903 Anjelica Disclaimer: Anjelica Disclaimer: This electronic medical record was generated, in whole or in part, using a voice recognition dictation system. Departure Departure Impression: Primary Impression: Epigastric abdominal pain Disposition: ADMITTED INPATIENT Admitting Physician: DNAIELLA STEIN) Condition: STABLE Referrals: HAROON CAMARGO MD (PCP) SHAYAN JOLLY MD Jun 23, 2021 07:37
[2021-06-23] MEDS ORDERED: CONTRAST GIVEN. MC PRN (08:00)
[2021-06-23] MEDS ORDERED: HYDROmorphone 2 MG/ML VIAL IVP ONE (08:00)
[2021-06-23] MEDS ORDERED: ONDANSETRON ODT 4 MG TAB.RAPDIS. PO ONE (08:00)
[2021-06-23] MEDS ORDERED: IOHEXOL 300 MG/ML 100ML VIAL. IV ONE (08:00)
[2021-06-23 08:15] LABS: BASO % 0 % (0-3); EOS % 0 % (0-3); HEMATOCRIT 36.2 % (36.0-47.0); HEMOGLOBIN 11.7 g/dL (12.0-15.5); LYMPH # 1.2 x10^3/uL (1.0-4.8); LYMPH % 18 % (24-48); MEAN CORPUSCULAR HEMOGLOBIN 25 pg (25-35); MEAN CORPUSCULAR HGB CONC 32 g/dL (31-37); MEAN CORPUSCULAR VOLUME 78 fL (79-100); MONO # 0.4 x10^3/uL (0.0-1.1); MONO % 6 % (0-9); NEUT # 5.1 x10^3/uL (1.8-7.7); NEUT % 76 % (31-73); PLATELET COUNT 189 x10^3/uL (140-400); RED BLOOD COUNT 4.65 x10^6/uL (3.50-5.40); RED CELL DISTRIBUTION WIDTH 15.5 % (11.5-14.5); WHITE BLOOD COUNT 6.7 x10^3/uL (4.0-11.0)
[2021-06-23 08:22] LABS: CALCIUM 8.7 mg/dL (8.5-10.1); CREATININE 0.8 mg/dL (0.6-1.0); GFR 75.3; POTASSIUM 3.2 mmol/L (3.5-5.1)
[2021-06-23 08:28] LABS: ALBUMIN 3.9 g/dL (3.4-5.0); ALBUMIN/GLOBULIN RATIO 0.8 (1.0-1.7); TOTAL BILIRUBIN 1.2 mg/dL (0.2-1.0)
[2021-06-23 08:45] LABS: BILIRUBIN,URINE NEGATIVE (NEG); CLARITY,URINE CLEAR; COLOR,URINE YELLOW; NITRITE,URINE NEGATIVE (NEG); PROTEIN,URINE NEGATIVE (NEG-TRACE); UROBILINOGEN,URINE 0.2 mg/dL (0.2 mg/dL)
[2021-06-23 08:52] LABS: BACTERIA,URINE FEW /HPF (0-FEW)
--- NOTE | 2021-06-23 09:03 | RAD ---
INDICATION: Reason: severe upper abdominal pain, EGD yesterday / Spl. Instructions: IV omni 300 75 ml s / History: . COMPARISON: December 2020 TECHNIQUE: Axial CT images obtained through the abdomen and pelvis with contrast. One or more of the following individualized dose reduction techniques were utilized for this examinat ion: 1. Automated exposure control; 2. Adjustment of the mA and/or kV according to patient size; 3 . Use of iterative reconstruction technique. FINDINGS: Right atrium partially seen and prominent in size. Scattered calcific atherosclerosis. No intrahepatic bile duct dilation. No pancreatic fluid collection. Spleen unremarkable. No hydronephrosis. Urinary bladder partially distended with thickened wall but similar to prior. No periappendiceal inflammatory changes. No dilated loops of bowel to suggest obstruction. No intraperitoneal free air. Numerous sclerotic foci are again seen scattered throughout the vertebral bodies. IMPRESSION: * Motion is identified at the upper abdomen which limits evaluation of the region. Just medial to th e proximal duodenum and posterior to the antrum of the stomach there is a 13 mm focus of air seen. Th is is within a region of motion artifact. This could be secondary to some air within the lumen of the duodenum with superimposed motion artifact but given the patient's pain within the area pathologic c auses such as localized perforation or ulcer is not excluded. Another possible cause would include a small diverticulum within the area. Further workup option would include either upper GI examination o r administration of oral contrast with focused CT through the area. * Repeat demonstration of some thickening of the urinary bladder wall. * Repeat demonstration of sclerotic foci scattered throughout the vertebral bodies and pelvis. Electronically signed by: Carlos Mitchell MD (06/23/2021 9:01 AM) [id number]
[2021-06-23 10:34] VITALS: BP 168/74
--- NOTE | 2021-06-23 11:29 | NUR ---
Patient's son arrived and requested patient be transferred to where her she sees her oncologist. Patient agreed wanting to go to . I explained that we could not do a hospital to hospital transfer and that she would need to sign out AMA and go through their ER. Patient in agreement that she wanted to go to . I removed patient's IV and she signed AMA paperwork. Patient taken out via wheelchair by this RN to son's car and patient safely transferred from wheelchair to front passenger seat of son's car.
== END 2021-06-23 11:20 | disposition left against medical advice (07) ==
LOC: ER 07:24 → 5 NORTH 09:19
PROVIDERS: ADMIT Internal Medicine; ATTEND Internal Medicine
DX: R10.13 Epigastric pain (principal); R11.2 Nausea with vomiting, unspecified; R19.7 Diarrhea, unspecified; Z20.822 Contact with and (suspected) exposure to COVID-19; R51.9 Headache, unspecified; Z87.891 Personal history of nicotine dependence; Z90.710 Acquired absence of both cervix and uterus; Z85.3 Personal history of malignant neoplasm of breast; Z85.118 Personal history of other malignant neoplasm of bronchus and lung; Z85.830 Personal history of malignant neoplasm of bone
CPT/HCPCS: 36415; 74177; 80053; 81001; 83690; 85025; 96361; 96374; 99285; G0378; J1170; J7030; Q9967; U0003; U0005; G0379

== ENCOUNTER → 2021-07-15 | Outpatient (CLI) | payer OTHER ==
[2021-06-23 10:34] VITALS: BP 168/74
[2021-07-15 11:49] LABS: BASO % 0 % (0-3); EOS # 0.1 x10^3/uL (0.0-0.7); EOS % 1 % (0-3); HEMATOCRIT 33.7 % (36.0-47.0); HEMOGLOBIN 10.6 g/dL (12.0-15.5); LYMPH # 0.8 x10^3/uL (1.0-4.8); LYMPH % 16 % (24-48); MEAN CORPUSCULAR HEMOGLOBIN 24 pg (25-35); MEAN CORPUSCULAR HGB CONC 32 g/dL (31-37); MEAN CORPUSCULAR VOLUME 77 fL (79-100); MONO # 0.4 x10^3/uL (0.0-1.1); MONO % 8 % (0-9); NEUT # 3.8 x10^3/uL (1.8-7.7); NEUT % 75 % (31-73); PLATELET COUNT 181 x10^3/uL (140-400); RED BLOOD COUNT 4.36 x10^6/uL (3.50-5.40); RED CELL DISTRIBUTION WIDTH 15.6 % (11.5-14.5); WHITE BLOOD COUNT 5.1 x10^3/uL (4.0-11.0)
[2021-07-15 12:09] LABS: CALCIUM 8.2 mg/dL (8.5-10.1); CREATININE 0.8 mg/dL (0.6-1.0); GFR 75.3; POTASSIUM 3.6 mmol/L (3.5-5.1)
[2021-07-15 12:15] LABS: ALBUMIN 3.4 g/dL (3.4-5.0); ALBUMIN/GLOBULIN RATIO 0.9 (1.0-1.7); TOTAL BILIRUBIN 0.3 mg/dL (0.2-1.0); TOTAL PROTEIN 7.3 g/dL (6.4-8.2)
== END ==
LOC: ONCLAB 11:16
PROVIDERS: ATTEND Internal Medicine Hematology & Oncology
DX: C34.2 Malignant neoplasm of middle lobe, bronchus or lung (principal)
CPT/HCPCS: 36415; 80053; 85025

== ENCOUNTER → 2021-07-23 | Outpatient (CLI) | payer OTHER ==
[2021-06-23 10:34] VITALS: BP 168/74
[~2021-07-23] MED LIST changes: +CONTRAST GIVEN. MC PRN; +GADOTERATE 5 MMOL/10ML VIAL. IVP ONE; +IOHEXOL 240 MG/ML 50ML VIAL. PO ONE; +IOHEXOL 300 MG/ML 100ML VIAL. IV ONE
--- NOTE | 2021-07-23 11:48 | RAD ---
CT of the chest, abdomen, and pelvis 07/23/2021 INDICATION: Restaging, lung cancer. COMPARISON STUDY: CT of the abdomen and pelvis June 23, 2021. CT of the chest June 01, 2021. TECHNIQUE: Multidetector CT imaging of the chest, abdomen, and pelvis was performed following the adm inistration of contrast. FINDINGS: Heart size is normal given chest morphology. No pericardial effusion is identified. Ectasia of the ascending thoracic aorta is stable measuring 3.7 cm in diameter. The thoracic aorta is unrema rkable in course and contour otherwise. No pathologically enlarged mediastinal adenopathy is identifi ed. There is no pleural effusion, or acute appearing infiltrate. Irregular mass in the right middle l obe with some areas of spiculation is again seen. Mass measures up to 2.3 cm in diameter. When measur ed in a comparable fashion this appears slightly smaller than on comparison exam. Sclerotic lesion in the right scapula involving involvement of the glenoid, is similar. Punctate sclerotic lesions noted in the manubrium sternum. Punctate sclerotic lesions within the thoracic vertebral bodies noted. The liver, gallbladder, spleen, adrenal glands, pancreas, and kidneys are unremarkable. There is no e vidence of bowel obstruction. No acute inflammatory change involving visualized bowel is identified. Multiple small sclerotic foci are seen within the bilateral proximal femurs,, pelvis, lumbar spine, w ith similar appearance noted on comparison study. IMPRESSION: 1. Slight interval decrease in size in right middle lobe mass in the interim. No new metastasis or si gnificant progression of disease is identified. 2. Sclerotic lesion within the right scapula, and punctate sclerotic lesions within the pelvis, proxi mal femurs, thoracic and lumbar vertebral bodies, sternum, manubrium are grossly stable. CT DOSING PQRS STATEMENT: One or more of the following individualized dose reduction techniques were utilized for this examinat ion: 1. Automated exposure control 2. Adjustment of the mA and/or kV according to patient size 3. Use of iterative reconstruction technique Electronically signed by: Farrukh Stokes MD (07/23/2021 11:46 AM) [id number]
--- NOTE | 2021-07-23 14:37 | RAD ---
EXAMINATION: Magnetic resonance imaging (MRI) of the brain and brainstem without and with contrast 07/23/2021 10:45 AM HISTORY: EGFR positive non-small cell lung cancer TECHNIQUE: Multiplanar multi-weighted MRI of the brain and brainstem was performed without and with i ntravenous contrast using the general brain protocol. Contrast information: 10 mL Gadolinium based contrast COMPARISON: None available FINDINGS: The scalp and calvarium are normal. The superior sagittal sinus demonstrates normal venous flow. The corpus callosum is normal in shape and signal intensity. The posterior fossa is unremarkable. The p ituitary and sella are normal. The brainstem and craniocervical junction are unremarkable. There are T2/FLAIR signal hyperintense foci in the periventricular and subcortical white matter most suggestiv e of mild chronic small vessel ischemic changes. There is subcortical T2 signal hypointensity with corresponding susceptibility artifact identified al tea the right perirolandic gyri. Focal susceptibility artifact identified along the left medial parie aaron lobe. No associated suspicious enhancement. There is a tiny developmental venous anomaly along th e left parietal lobe (series 9, image 15). Diffusion weighted images reveal no hyperintensities to suggest acute cerebral infarction. The suscep tibility weighted sequences reveal no evidence of acute or chronic hemorrhage. The ventricles are nor mal in size and position without evidence of hydrocephalus. There are no areas of abnormal contrast enhancement. Mild mucosal thickening of the left maxillary sinuses noted.. The visualized portions of the mastoid s are unremarkable. The orbits appear normal. Normal flow voids are demonstrated in the carotid diann holly and basilar artery. IMPRESSION: 1. No evidence for acute or subacute ischemia. 2. 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 Superficial siderosis could have similar appearance. Findings are atypical for calcification, however correlation with CT head without contrast could be of benefi t. 3. No evidence for intracranial metastatic disease. Electronically signed by: Kimberly Ly MD (07/23/2021 2:34 PM) [id number]
--- NOTE | 2021-07-24 17:22 | RAD ---
EXAM: NM BONE SCAN WHOLE BODY 07/23/2021 1:00 PM CLINICAL INDICATION: Lung cancer, bone metastases, lower back pain COMPARISON: CT chest abdomen pelvis 07/23/2021 and whole body bone scintigraphy 09/22/2020 TECHNIQUE: The patient was administered technetium 99 labeled MDP and whole body bone scintigraphy w as performed. FINDINGS: There is increased radiotracer uptake in the right scapula and new radiotracer uptake in t he left clavicular head consistent with metastatic disease and corresponding with bone lesions on CT. There is increased radiotracer uptake in the sternum suspicious for metastatic disease likely corres ponding with a tiny sclerotic lesion on CT. No definite other abnormal tracer uptake. There is physio logic distribution of radiotracer. IMPRESSION: Osseous metastatic disease in the right scapula, left clavicular head, and sternum. Electronically signed by: Jessica Farris MD (07/24/2021 5:19 PM) [id number]
== END ==
LOC: NM 09:25
PROVIDERS: ATTEND Internal Medicine Hematology & Oncology
DX: C79.51 Secondary malignant neoplasm of bone (principal); J32.0 Chronic maxillary sinusitis; I77.810 Thoracic aortic ectasia; C34.2 Malignant neoplasm of middle lobe, bronchus or lung; M25.80 Other specified joint disorders, unspecified joint
CPT/HCPCS: 70553; 71260; 74177; 78306; A9503; A9575; Q9966; Q9967

== ENCOUNTER → 2021-07-28 | Outpatient (CLI) | payer OTHER ==
[~2021-07-28] MED LIST changes: -CONTRAST GIVEN. MC PRN; -GADOTERATE 5 MMOL/10ML VIAL. IVP ONE; -IOHEXOL 240 MG/ML 50ML VIAL. PO ONE; -IOHEXOL 300 MG/ML 100ML VIAL. IV ONE
[2021-07-28 11:06] LABS: BASO % 0 % (0-3); EOS # 0.1 x10^3/uL (0.0-0.7); EOS % 2 % (0-3); HEMATOCRIT 33.5 % (36.0-47.0); HEMOGLOBIN 10.7 g/dL (12.0-15.5); LYMPH % 18 % (24-48); MEAN CORPUSCULAR HEMOGLOBIN 24 pg (25-35); MEAN CORPUSCULAR HGB CONC 32 g/dL (31-37); MEAN CORPUSCULAR VOLUME 76 fL (79-100); MONO # 0.4 x10^3/uL (0.0-1.1); MONO % 8 % (0-9); NEUT # 4.1 x10^3/uL (1.8-7.7); NEUT % 72 % (31-73); PLATELET COUNT 214 x10^3/uL (140-400); RED BLOOD COUNT 4.39 x10^6/uL (3.50-5.40); RED CELL DISTRIBUTION WIDTH 15.6 % (11.5-14.5); WHITE BLOOD COUNT 5.6 x10^3/uL (4.0-11.0)
[2021-07-28 11:19] LABS: CALCIUM 8.6 mg/dL (8.5-10.1); GFR 58.2; POTASSIUM 3.7 mmol/L (3.5-5.1)
[2021-07-28 11:25] LABS: ALBUMIN 3.7 g/dL (3.4-5.0); ALBUMIN/GLOBULIN RATIO 0.8 (1.0-1.7); TOTAL BILIRUBIN 0.5 mg/dL (0.2-1.0); TOTAL PROTEIN 8.3 g/dL (6.4-8.2)
== END ==
LOC: ONCLAB 10:49
PROVIDERS: ATTEND Physician Assistant
DX: C34.2 Malignant neoplasm of middle lobe, bronchus or lung (principal)
CPT/HCPCS: 36415; 80053; 82306; 82728; 83540; 83550; 85025

== ENCOUNTER → 2021-08-04 | Outpatient (CLI) | payer OTHER ==
--- NOTE | 2021-08-04 13:59 | EKG ---
[facility] [address] [place] [address] Test Date: 2021-08-04 Test Time: 11:45:33 Pat Name: NOEL TILLMAN Department: Room: Gender: F Metrologist: : 1970 Requested By: WILMAR HUANG Order Number: [id number] Reading MD: Maxwell Plata Measurements Intervals [place] Rate: 64 P: 42 NC: 160 QRS: 26 QRSD: 86 T: 52 QT: 426 QTc: 444 Interpretive Statements SINUS RHYTHM MILD NONSPECIFIC T WAVE CHANGES Electronically Signed On 08-05-2021 14:23:01 CDT by Maxwell Plata
--- NOTE | 2021-08-04 17:27 | CARD ---
MR#: [id number] Date of Study: 08/04/2021 Ordering Physician: WILMAR HUANG, Referring Physician: WILMAR HUANG Tech: Austin Mendoza [facility] APPROVED REPORT EXAM: Two-dimensional and M-mode echocardiogram with Doppler and color Doppler. Other Information Quality : GoodHR: 63bpm Rhythm : NSR INDICATION Chest Pain Chest pressure Non Small cell lung CA 2D DIMENSIONS Left Atrium(2D)3.5 (1.6-4.0cm)IVSd0.8 (0.7-1.1cm) Aortic Root(2D)3.3 (2.0-3.7cm)LVDd5.1 (3.9-5.9cm) LVOT Diameter1.7 (1.8-2.4cm)PWd0.9 (0.7-1.1cm) LVDs3.1 (2.5-4.0cm)FS (%) 39.2 % SV87.0 mlLVEF(%)69.3 (>50%) Aortic Valve AoV Peak Eder.165.5cm/sAoV VTI31.2cm AO Peak GR.11.0mmHgLVOT Peak Eder.118.5cm/s AO Mean GR.5mmHgAVA (VMAX)1.69cm2 AI P 1/2 [id number] Mitral Valve MV E Oncjxqsa78.2cm/sMV E Peak Gr.3mmHg MV DECEL [id number] A Mtiixsgf60.1cm/s MV E Mean Gr.1mmHgE/A Ratio1.2 Pulmonary Valve PV Peak Hignntuc34.7cm/s Tricuspid Valve TR P. Acbcfsfr059by/sTR Peak Gr.23mmHg Pulmonary Vein S1 Ltgplsdf95.5cm/sD2 Elmdjkkl69.3cm/s LEFT VENTRICLE The left ventricle is normal size. There is normal left ventricular wall thickness. The left ventricu lar systolic function is normal. The ejection fraction is 60-65%. There is normal LV segmental wall m otion. The left ventricular diastolic function and filling is normal for age. No left ventricle throm bus noted on this study. There is no ventricular septal defect visualized. There is no left ventricul ar aneurysm. There is no mass noted in the left ventricle. RIGHT VENTRICLE The right ventricle is normal size. There is normal right ventricular wall thickness. The right ventr icular systolic function is normal. ATRIA The left atrium is mildly dilated. The right atrium size is normal. The interatrial septum is intact with no evidence for an atrial septal defect or patent foramen ovale as noted on 2-D or Doppler imagi ng. AORTIC VALVE The aortic valve is mildly sclerotic. Doppler and Color Flow revealed trace aortic regurgitation. The re is no significant aortic valvular stenosis. There is no aortic valvular vegetation. MITRAL VALVE The mitral valve is normal in structure and function. There is no evidence of mitral valve prolapse. There is no mitral valve stenosis. Doppler and Color-flow revealed mild mitral regurgitation. TRICUSPID VALVE The tricuspid valve is normal in structure and function. Doppler and Color Flow revealed trace tricus pid regurgitation. There is no tricuspid valve prolapse or vegetation. There is no tricuspid valve st enosis. PULMONIC VALVE The pulmonary valve is normal in structure and function. Doppler and Color Flow revealed no pulmonic valvular regurgitation. There is no pulmonic valvular stenosis. GREAT VESSELS The aortic root is normal in size. The ascending aorta is normal in size. The pulmonary artery is nor mal. The IVC is normal in size and collapses >50% with inspiration. PERICARDIAL EFFUSION There is no pleural effusion. There is no evidence of significant pericardial effusion. Critical Notification Critical Value: No <Conclusion> The left ventricular systolic function is normal. The ejection fraction is 60-65%. There is normal LV segmental wall motion. Mild mitral regurgitation. Trace tricuspid regurgitation. There is no evidence of significant pericardial effusion. Signed by : Abelino Florian, Electronically Approved : 08/04/2021 17:27:12
== END ==
LOC: ECHO 10:47
PROVIDERS: ATTEND Internal Medicine Hematology & Oncology
DX: C34.2 Malignant neoplasm of middle lobe, bronchus or lung (principal); I08.0 Rheumatic disorders of both mitral and aortic valves; R94.31 Abnormal electrocardiogram [ECG] [EKG]
CPT/HCPCS: 93005; 93306

== ENCOUNTER → 2021-08-25 | Outpatient (CLI) | payer OTHER ==
[2021-08-25 10:39] LABS: BASO % 0 % (0-3); EOS # 0.1 x10^3/uL (0.0-0.7); EOS % 3 % (0-3); HEMATOCRIT 30.6 % (36.0-47.0); HEMOGLOBIN 9.7 g/dL (12.0-15.5); LYMPH # 1.1 x10^3/uL (1.0-4.8); LYMPH % 30 % (24-48); MEAN CORPUSCULAR HEMOGLOBIN 24 pg (25-35); MEAN CORPUSCULAR HGB CONC 32 g/dL (31-37); MEAN CORPUSCULAR VOLUME 75 fL (79-100); MONO # 0.5 x10^3/uL (0.0-1.1); MONO % 12 % (0-9); NEUT # 2.1 x10^3/uL (1.8-7.7); NEUT % 55 % (31-73); PLATELET COUNT 167 x10^3/uL (140-400); WHITE BLOOD COUNT 3.8 x10^3/uL (4.0-11.0)
[2021-08-25 10:48] LABS: CALCIUM 8.2 mg/dL (8.5-10.1); CREATININE 0.8 mg/dL (0.6-1.0); GFR 75.3; POTASSIUM 3.4 mmol/L (3.5-5.1)
[2021-08-25 10:59] LABS: ALBUMIN 3.5 g/dL (3.4-5.0); ALBUMIN/GLOBULIN RATIO 0.8 (1.0-1.7); TOTAL BILIRUBIN 0.4 mg/dL (0.2-1.0)
== END ==
LOC: ONCLAB 10:24
PROVIDERS: ATTEND Physician Assistant
DX: C34.2 Malignant neoplasm of middle lobe, bronchus or lung (principal)
CPT/HCPCS: 36415; 80053; 85025

== ENCOUNTER → 2021-09-29 | Outpatient (CLI) | payer OTHER ==
--- NOTE | 2021-09-29 13:56 | RAD ---
EXAM: Chest, 2 views. HISTORY: Small cell lung cancer. COMPARISON: 06/21/2021 FINDINGS: 2 views of the chest are obtained. There is a 2.4 cm a nodule overlying the right mid thora x. There is no infiltrate, pleural effusion or pneumothorax. There is stable mild enlargement of the cardiac silhouette. IMPRESSION: 1. Right midlung nodule, better characterized on the CT performed 07/23/2021. This is not significantly changed when allowing for differences in imaging modality. 2. Stable enlargement of the cardiac silhouette. Electronically signed by: Shraddha Moralez MD (09/29/2021 1:53 PM) [id number]
== END ==
LOC: RAD 13:22
PROVIDERS: ATTEND Physician Assistant
DX: C34.2 Malignant neoplasm of middle lobe, bronchus or lung (principal); R91.1 Solitary pulmonary nodule; I51.7 Cardiomegaly
CPT/HCPCS: 71046

== ENCOUNTER → 2021-09-29 | Outpatient (CLI) | payer OTHER ==
[2021-09-29 14:43] LABS: BASO % 0 % (0-3); EOS # 0.1 x10^3/uL (0.0-0.7); EOS % 1 % (0-3); HEMATOCRIT 31.1 % (36.0-47.0); HEMOGLOBIN 9.6 g/dL (12.0-15.5); LYMPH # 1.3 x10^3/uL (1.0-4.8); LYMPH % 25 % (24-48); MEAN CORPUSCULAR HEMOGLOBIN 23 pg (25-35); MEAN CORPUSCULAR HGB CONC 31 g/dL (31-37); MEAN CORPUSCULAR VOLUME 73 fL (79-100); MONO # 0.5 x10^3/uL (0.0-1.1); MONO % 10 % (0-9); NEUT # 3.4 x10^3/uL (1.8-7.7); NEUT % 63 % (31-73); PLATELET COUNT 151 x10^3/uL (140-400); RED BLOOD COUNT 4.25 x10^6/uL (3.50-5.40); RED CELL DISTRIBUTION WIDTH 16.9 % (11.5-14.5); WHITE BLOOD COUNT 5.3 x10^3/uL (4.0-11.0)
[2021-09-29 14:56] LABS: CALCIUM 8.2 mg/dL (8.5-10.1); CREATININE 0.7 mg/dL (0.6-1.0); GFR 87.9; POTASSIUM 3.9 mmol/L (3.5-5.1)
[2021-09-29 15:02] LABS: ALBUMIN 3.6 g/dL (3.4-5.0); ALBUMIN/GLOBULIN RATIO 0.8 (1.0-1.7); TOTAL BILIRUBIN 0.5 mg/dL (0.2-1.0)
[2021-09-29 16:08] LABS: HYPOCHROMIA PRESENT; MICROCYTOSIS SLIGHT; PLT ESTIMATE ADEQUATE (ADEQUATE); POLYCHROMASIA PRESENT
== END ==
LOC: ONCLAB 14:18
PROVIDERS: ATTEND Internal Medicine Hematology & Oncology
DX: C34.2 Malignant neoplasm of middle lobe, bronchus or lung (principal)
CPT/HCPCS: 36415; 80053; 85025

== ENCOUNTER → 2021-10-13 | Outpatient (CLI) | payer OTHER ==
[2021-10-13 13:29] LABS: BASO % 0 % (0-3); EOS # 0.1 x10^3/uL (0.0-0.7); EOS % 2 % (0-3); HEMATOCRIT 30.4 % (36.0-47.0); HEMOGLOBIN 9.4 g/dL (12.0-15.5); LYMPH # 1.3 x10^3/uL (1.0-4.8); LYMPH % 23 % (24-48); MEAN CORPUSCULAR HEMOGLOBIN 23 pg (25-35); MEAN CORPUSCULAR HGB CONC 31 g/dL (31-37); MEAN CORPUSCULAR VOLUME 74 fL (79-100); MONO # 0.5 x10^3/uL (0.0-1.1); MONO % 9 % (0-9); NEUT # 3.6 x10^3/uL (1.8-7.7); NEUT % 66 % (31-73); PLATELET COUNT 187 x10^3/uL (140-400); RED BLOOD COUNT 4.14 x10^6/uL (3.50-5.40); RED CELL DISTRIBUTION WIDTH 16.7 % (11.5-14.5); WHITE BLOOD COUNT 5.5 x10^3/uL (4.0-11.0)
[2021-10-13 13:43] LABS: CALCIUM 8.3 mg/dL (8.5-10.1); CREATININE 0.9 mg/dL (0.6-1.0); GFR 65.8; POTASSIUM 3.5 mmol/L (3.5-5.1)
[2021-10-13 13:49] LABS: ALBUMIN 3.1 g/dL (3.4-5.0); ALBUMIN/GLOBULIN RATIO 0.7 (1.0-1.7); TOTAL BILIRUBIN 0.3 mg/dL (0.2-1.0); TOTAL PROTEIN 7.5 g/dL (6.4-8.2)
== END ==
LOC: ONCLAB 13:05
PROVIDERS: ATTEND Physician Assistant
DX: C34.2 Malignant neoplasm of middle lobe, bronchus or lung (principal)
CPT/HCPCS: 36415; 80053; 85025

== ENCOUNTER → 2021-10-14 | Outpatient (CLI) | payer OTHER ==
[~2021-10-14] MED LIST changes: +ACET500T68 PO; +BENZ-8 PO; +CALC500T30 PO; +CHOL500021 PO; +FEXO180T16 PO; +OMEP40CA7 PO; +OXYC5TAB4 PO
--- NOTE | 2021-10-14 13:20 | RAD ---
BILATERAL DIGITAL SCREENING 2-D MAMMOGRAM INDICATION: Routine screening. COMPARISON: 09/26/2019 Interpretation was made using CAD. FINDINGS: Breast Density: The breasts are heterogeneously dense, which may obscure small masses. RIGHT BREAST: There is an asymmetry in the lateral right breast posterior third approximately 9 cm fr om the nipple in the extra conal fat which is partially superimposed by a vessel, seen in the cc view only. LEFT BREAST: No suspicious masses, calcifications or areas of architectural distortion are seen. IMPRESSION: 1. Lateral right breast posterior third asymmetry within the extraconal fat. ASSESSMENT: BI-RADS 0: Incomplete -- Need Additional Imaging Evaluation and/or Prior Mammograms for C omparison. RECOMMENDATION: Spot compression views of the right breast and ultrasound if indicated. Your patient's mammogram demonstrates that she has dense breast tissue (breast density category C or D), which could hide abnormalities, and if she has other risk factors for breast cancer that have bee n identified, she might benefit from supplemental screening tests that may be suggested by you as her ordering physician. Dense breast tissue, in and of itself, is a relatively common condition. Therefo re, this information is not provided to cause undue concern, but rather to raise your awareness and t o promote discussion with your patient regarding the presence of other risk factors, in addition to d ense breast tissue. The facility will notify the patient of the results via mail. Patient information will be entered int o the mammography reminder system with a target recall date for the next mammogram. A reminder letter will be generated by the facility. Electronically signed by: Nicko Miles MD (10/14/2021 1:17 PM) [id number]
== END ==
LOC: MAMMO 08:32
PROVIDERS: ATTEND Physician Assistant
DX: Z12.31 Encounter for screening mammogram for malignant neoplasm of breast (principal)
CPT/HCPCS: 77067

== ENCOUNTER 2021-10-16 06:31 | Inpatient (IN) | payer OTHER ==
[~2021-10-16] VITALS: Ht 160 cm; Wt 60.9 kg
[~2021-10-16 06:31] MED LIST changes: -ACET500T68 PO; -BENZ-8 PO; -CALC500T30 PO; -CHOL500021 PO; -FEXO180T16 PO; -OMEP40CA7 PO; -OXYC5TAB4 PO
--- NOTE | 2021-10-16 07:13 | RAD ---
EXAM: XR CHEST 1V 10/16/2021 6:43 AM CLINICAL INDICATION: Sepsis, lung cancer on chemotherapy COMPARISON: Chest radiograph 09/29/2021 TECHNIQUE: AP view of the chest FINDINGS: Cardiac silhouette is unchanged. Nodular opacity in the mid right lung is unchanged. There is new diffuse interstitial prominence. No pleural effusion or pneumothorax. The right proximal allie oneyda is heterogeneous in appearance. Suspect sclerotic lesions in both humeri and the right scapula. IMPRESSION: 1. Unchanged nodular opacity in the mid right lung corresponding with known mass. 2. New mild diffuse interstitial prominence could reflect vascular congestion or atypical infection. 3. Suspect bone lesions in the humeri and right scapula. Electronically signed by: Jessica Farris MD (10/16/2021 7:11 AM) [facility]
[2021-10-16 07:24] LABS: BASO % 0 % (0-3); EOS % 1 % (0-3); HEMATOCRIT 30.2 % (36.0-47.0); HEMOGLOBIN 9.7 g/dL (12.0-15.5); LYMPH # 0.5 x10^3/uL (1.0-4.8); LYMPH % 10 % (24-48); MEAN CORPUSCULAR HEMOGLOBIN 23 pg (25-35); MEAN CORPUSCULAR HGB CONC 32 g/dL (31-37); MEAN CORPUSCULAR VOLUME 72 fL (79-100); MONO # 0.6 x10^3/uL (0.0-1.1); MONO % 10 % (0-9); NEUT # 4.4 x10^3/uL (1.8-7.7); NEUT % 79 % (31-73); PLATELET COUNT 173 x10^3/uL (140-400); RED BLOOD COUNT 4.18 x10^6/uL (3.50-5.40); RED CELL DISTRIBUTION WIDTH 16.9 % (11.5-14.5); WHITE BLOOD COUNT 5.5 x10^3/uL (4.0-11.0)
[2021-10-16] MEDS ORDERED: PIPERACILLIN/TAZOBACTAM 4.5 GM in IV NORMAL SALINE 100ML 100 ML IV ONE (07:30)
[2021-10-16] MEDS ORDERED: IV NORMAL SALINE 1000ML BAG 1,000 ML IV ONE ×3 (07:30→23:00)
[2021-10-16 07:34] LABS: CALCIUM 8.1 mg/dL (8.5-10.1); CREATININE 0.9 mg/dL (0.6-1.0); GFR 65.8; POTASSIUM 3.3 mmol/L (3.5-5.1)
[2021-10-16 07:45] LABS: ALBUMIN 3.1 g/dL (3.4-5.0); ALBUMIN/GLOBULIN RATIO 0.7 (1.0-1.7); TOTAL BILIRUBIN 0.5 mg/dL (0.2-1.0); TOTAL PROTEIN 7.5 g/dL (6.4-8.2)
[2021-10-16] MEDS ORDERED: MORPHINE SULFATE 10 MG/ML VIAL. IVP ONE (08:00)
[2021-10-16] MEDS ORDERED: MORPHINE SULFATE 10 MG/ML VIAL. ONE (08:08)
[2021-10-16 08:15] LABS: INFLUENZA A PATIENT NEGATIVE (NEGATIVE); INFLUENZA B PATIENT NEGATIVE (NEGATIVE)
[2021-10-16] MEDS ORDERED: DOXYCYCLINE HYCLATE 100 MG TABLET PO ONE (09:30)
--- NOTE | 2021-10-16 09:38 | PHYS DOC ---
Past Medical History Additional Past Medical Histor: LUNG CANCER, RIGHT SHOULDER/RIGHT ARM CANCER Past Surgical History: No Surgical History Smoking Status: Never Smoker Alcohol Use: None Drug Use: None General Adult EDM: Chief Complaint: UPPER EXTREMITY PAIN HPI: HPI: Patient is a 50 year old female with history of lung cancer with bony metastasis who presents with fever, chills, chest pain, cough, and diffuse bony pain. Reported fever of 102 degrees Fahrenheit. Denies dysuria, urgency, frequency. Denies abdominal pain, nausea, vomiting. Denies skin rash. Denies any indwelling catheters. Has had radiation therapy, but denies having chemotherapy. States that she follows with an oncologist here at [place]. She is feeling very weak and has significant pain with any movement. Review of Systems: Review of Systems: Constitutional: Reports fever and chills Eyes: Denies change in visual acuity. [] HENT: Denies nasal congestion or sore throat. [] Respiratory: Reports cough Cardiovascular: Reports chest GI: Denies abdominal pain, nausea, vomiting, bloody stools or diarrhea. [] : Denies dysuria. [] Musculoskeletal: Denies back pain or joint pain. [] Integument: Denies rash. [] Neurologic: Denies headache, focal weakness or sensory changes. [] Endocrine: Denies polyuria or polydipsia. [] Lymphatic: Denies swollen glands. [] Psychiatric: Denies depression or anxiety. [] Heart Score: C/O Chest Pain: Yes HEART Score for Chest Pain: HEART Score for Chest Pain Response (Comments) Value History Slighlty/Non-Suspicious 0 ECG Nonspecific Repolarizatio 1 Age >45 - < 65 1 Risk Factors No Risk Factors 0 Troponin < Normal Limit 0 Total 2 Risk Factors: Risk Factors: DM, Current or recent (<one month) smoker, HTN, HLP, family history of CAD, obesity. Risk Scores: Score 0 - 3: 2.5% MACE over next 6 weeks - Discharge Home Score 4 - 6: 20.3% MACE over next 6 weeks - Admit for Clinical Observation Score 7 - 10: 72.7% MACE over next 6 weeks - Early Invasive Strategies Current Medications: Current Medications Medications (Trade) Dose Ordered Sig/Charley Start Time Stop Time Status Last Admin Dose Admin Morphine Sulfate (Morphine Sulfate) 10 mg STK-MED ONCE 10/16/21 08:08 10/16/21 08:08 DC Piperacillin Sod/ Tazobactam Sod 4.5 gm/Sodium Chloride 100 ml @ 200 mls/hr 1X ONCE 10/16/21 07:30 10/16/21 07:59 DC 10/16/21 07:52 200 MLS/HR Sodium Chloride 1,000 ml @ 1,000 mls/hr 1X ONCE 10/16/21 07:30 10/16/21 08:29 DC 10/16/21 07:52 1,000 MLS/HR Allergies: Allergies: Allergies Coded Allergies Type Severity Reaction Last Updated Verified No Known Drug Allergies 06/22/21 No Physical Exam: PE: Constitutional: Appears acutely uncomfortable, crying HENT: Normocephalic, atraumatic, Eyes: PERRLA, EOMI, conjunctiva normal, no discharge. [] Neck: Normal range of motion, no tenderness, supple, no stridor. [] Cardiovascular:Heart rate regular rhythm, no murmur [] Lungs & Thorax: Bilateral breath sounds clear to auscultation [] Abdomen: Bowel sounds normal, soft, no tenderness, no masses, no pulsatile masses. [] Skin: Warm to the touch, dry, no erythema, no rash. [] Extremities: No tenderness, no cyanosis, no clubbing, ROM intact, no edema. [] Neurologic: Alert and oriented X 3, normal motor function, normal sensory fu nction, no focal deficits noted. [] Psychologic: Tearful affect Current Patient Data: Labs: Laboratory Tests Test 10/16/21 07:05 10/16/21 07:45 White Blood Count 5.5 x10^3/uL (4.0-11.0) Red Blood Count 4.18 x10^6/uL (3.50-5.40) Hemoglobin 9.7 g/dL (12.0-15.5) L Hematocrit 30.2 % (36.0-47.0) L Mean Corpuscular Volume 72 fL (79-100) L Mean Corpuscular Hemoglobin 23 pg (25-35) L Mean Corpuscular Hemoglobin Concent 32 g/dL (31-37) Red Cell Distribution Width 16.9 % (11.5-14.5) H Platelet Count 173 x10^3/uL (140-400) Neutrophils (%) (Auto) 79 % (31-73) H Lymphocytes (%) (Auto) 10 % (24-48) L Monocytes (%) (Auto) 10 % (0-9) H Eosinophils (%) (Auto) 1 % (0-3) Basophils (%) (Auto) 0 % (0-3) Neutrophils # (Auto) 4.4 x10^3/uL (1.8-7.7) Lymphocytes # (Auto) 0.5 x10^3/uL (1.0-4.8) L Monocytes # (Auto) 0.6 x10^3/uL (0.0-1.1) Eosinophils # (Auto) 0.0 x10^3/uL (0.0-0.7) Basophils # (Auto) 0.0 x10^3/uL (0.0-0.2) Sodium Level 136 mmol/L (136-145) Potassium Level 3.3 mmol/L (3.5-5.1) L Chloride Level 102 mmol/L (98-107) Carbon Dioxide Level 26 mmol/L (21-32) Anion Gap 8 (6-14) Blood Urea Nitrogen 7 mg/dL (7-20) Creatinine 0.9 mg/dL (0.6-1.0) Estimated GFR (Cockcroft-Gault) 65.8 BUN/Creatinine Ratio 8 (6-20) Glucose Level 106 mg/dL (70-99) H Lactic Acid Level 1.5 mmol/L (0.4-2.0) Calcium Level 8.1 mg/dL (8.5-10.1) L Total Bilirubin 0.5 mg/dL (0.2-1.0) Aspartate Amino Transferase (AST) 80 U/L (15-37) H Alanine Aminotransferase (ALT) 62 U/L (14-59) H Alkaline Phosphatase 88 U/L (46-116) Troponin I High Sensitivity 11 ng/L (4-50) Total Protein 7.5 g/dL (6.4-8.2) Albumin 3.1 g/dL (3.4-5.0) L Albumin/Globulin Ratio 0.7 (1.0-1.7) L Influenza Type A Antigen Negative (NEGATIVE) Influenza Type B Antigen Negative (NEGATIVE) SARS-CoV-2 Antigen (Rapid) Negative (NEGATIVE) Laboratory Tests 10/16/21 07:05 Laboratory Tests 10/16/21 07:05 Vital Signs: Vital Signs Date Time Temp Pulse Resp B/P (MAP) Pulse Ox O2 Delivery O2 Flow Rate FiO2 10/16/21 08:10 27 97 Room Air 10/16/21 07:57 102 151/79 (103) 10/16/21 07:27 99.2 99.2 EKG: EKG: [] Sinus rhythm. Rate 92. QTc 463. T wave inversions in aVL, biphasic T wave in lateral leads. No ST elevation. Radiology/Procedures: Radiology/Procedures: [] Impression: [facility] [address] [place] [address] IMAGING REPORT Signed PATIENT: NOEL TILLMAN ACCOUNT: [id number] : 1970 LOCATION: ER AGE: 50 SEX: F EXAM STATUS: PRE ER ORD. PHYSICIAN: SHAYAN JOLLY MD REASON: sepsis, lung cancer on chemo PROCEDURE: CHEST AP ONLY EXAM: XR CHEST 1V 10/16/2021 6:43 AM CLINICAL INDICATION: Sepsis, lung cancer on chemotherapy COMPARISON: Chest radiograph 09/29/2021 TECHNIQUE: AP view of the chest FINDINGS: Cardiac silhouette is unchanged. Nodular opacity in the mid right lung is unchanged. There is new diffuse interstitial prominence. No pleural effusion or pneumothorax. The right proximal humerus is heterogeneous in ap pearance. Suspect sclerotic lesions in both humeri and the right scapula. IMPRESSION: 1. Unchanged nodular opacity in the mid right lung corresponding with known mass. 2. New mild diffuse interstitial prominence could reflect vascular congestion or atypical infection. 3. Suspect bone lesions in the humeri and right scapula. Electronically signed by: Jessica Farris MD (10/16/2021 7:11 AM) [facility] DICTATED and SIGNED BY: JESSICA FARRIS MD DATE: 10/16/21 [id number] Course & Med Decision Making: Course & Med Decision Making Pertinent Labs and Imaging studies reviewed. (See chart for details) Patient a 50-year-old female with history of lung cancer with metastasis to the bone who presents with fever, chills, chest pain, cough, diffuse bony pain. Reported fever up to 102F, but afebrile on arrival. Slightly tachycardic. Initiated sepsis treatment with IV fluids, Zosyn, blood cultures, urine culture. Chest x-ray shows interstitial predominance that may represent an atypical pneumonia. Added doxycycline. Initial Covid and influenza testing negative. Covid PCR pending. Lactic and WBC reassuring. UA pending. Patient is in distress crying, requiring IV narcotics for pain control. Feel that she will require admission for further management Dragon Disclaimer: Dragmat Disclaimer: This electronic medical record was generated, in whole or in part, using a voice recognition dictation system. Departure Departure Impression: Primary Impression: Atypical pneumonia Additional Impression: Pain of metastatic malignancy Disposition: ADMITTED INPATIENT Condition: STABLE Referrals: HAROON CAMARGO MD (PCP) SHAYAN JOLLY MD Oct 16, 2021 09:37
[2021-10-16 10:12] LABS: BILIRUBIN,URINE NEGATIVE (NEG); CLARITY,URINE CLEAR; COLOR,URINE YELLOW; NITRITE,URINE NEGATIVE (NEG); PH,URINE 7.5 (<5.0-8.0); PROTEIN,URINE NEGATIVE (NEG-TRACE); UROBILINOGEN,URINE 0.2 mg/dL (0.2 mg/dL)
[2021-10-16 10:22] LABS: BACTERIA,URINE 0 /HPF (0-FEW); RBC,URINE OCC /HPF (0-2); WBC,URINE 0 /HPF (0-4)
[2021-10-16 13:15] VITALS: BP 160/84
[2021-10-16] MEDS ORDERED: POTASSIUM CHLORIDE 20 MEQ TABLET.ER. PO ONE (14:00)
[2021-10-16] MEDS ORDERED: ONDANSETRON ODT 4 MG TAB.RAPDIS. PO PRN (14:00)
[2021-10-16] MEDS ORDERED: OXYC5TAB4 PO (14:17)
[2021-10-16] MEDS ORDERED: ACET500T68 PO (14:18)
[2021-10-16] MEDS ORDERED: FEXO180T16 PO (14:18)
[2021-10-16] MEDS ORDERED: BENZ-8 PO (14:18)
[2021-10-16] MEDS ORDERED: OMEP40CA7 PO (14:18)
[2021-10-16] MEDS ORDERED: CALC500T30 PO (14:18)
[2021-10-16] MEDS ORDERED: CETI10TA16 PO (14:18)
[2021-10-16] MEDS ORDERED: CHOL500021 PO (14:18)
[2021-10-16] MEDS ORDERED: oxyCODONE/APAP 5/325 1 TAB TABLET PO PRN (14:30)
[2021-10-16] MEDS ORDERED: PIP/TAZO PER PHARMACY MC PRN (14:30)
[2021-10-16 15:00] VITALS: BP 131/75
--- NOTE | 2021-10-16 15:06 | PDOC1 ---
History and Physical Date of Admission Date of Admission DATE: 10/16/21 TIME: 15:04 Identification/Chief Complaint Chief Complaint shoulder pain, cough, fever, Source Source: Chart review History of Present Illness History of Present Illness Ms. Brady is a 50 year old female admit with cough, fver and shoulder pain. She has a history of lung cancer with bony metastasis and complains of weakness and nausea and pain worse for 2days T max 102 degrees Fahrenheit. . Has had radiation therapy,and following an oncologist here at [place]. She is feeling very weak and has significant pain to her right shoudler, worse with movemetn, no cough, very lethargic Past Medical History Past Medical History lung cancer, htn Pulmonary: No pertinent hx GI: No pertinent hx Heme/Onc: No pertinent hx Hepatobiliary: No pertinent hx Psych: No pertinent hx Musculoskeletal: low back pain Rheumatologic: No pertinent hx Infectious disease: No pertinent hx ENT: Sincusitis Dermatology: No pertinent hx Past Surgical History Past Surgical History: No pertinent history Family History Family History: No Significant Social History Smoke: No ALCOHOL: none Drugs: None Current Problem List Problem List Problems Medical Problems: (1) Atypical pneumonia Status: Acute (2) Pain of metastatic malignancy Status: Acute Current Medications Current Medications Current Medications Sodium Chloride 1,000 ml @ 1,000 mls/hr 1X ONCE IV Last administered on 10/16/21at 07:52; Start 10/16/21 at 07:30; Stop 10/16/21 at 08:29; Status DC Piperacillin Sod/ Tazobactam Sod 4.5 gm/Sodium Chloride 100 ml @ 200 mls/hr 1X ONCE IV Last administered on 10/16/21at 07:52; Start 10/16/21 at 07:30; Stop 10/16/21 at 07:59; Status DC Morphine Sulfate (Morphine Sulfate) 5 mg 1X ONCE IVP Last administered on 10/16/21at 08:10; Start 10/16/21 at 08:00; Stop 10/16/21 at 08:07; Status DC Morphine Sulfate (Morphine Sulfate) 10 mg STK-MED ONCE .ROUTE ; Start 10/16/21 at 08:08; Stop 10/16/21 at 08:08; Status DC Doxycycline Hyclate (Vibra-Tab) 100 mg 1X ONCE PO Last administered on 10/16/21at 11:20; Start 10/16/21 at 09:30; Stop 10/16/21 at 09:31; Status DC Potassium Chloride (Klor-Con) 20 meq DAILYWBKFT PO ; Start 10/16/21 at 15:00 Potassium Chloride (Klor-Con) 20 meq 1X ONCE PO ; Start 10/16/21 at 14:00; Stop 10/16/21 at 14:01; Status UNV Cetirizine HCl (ZyrTEC) 10 mg DAILY PO ; Start 10/17/21 at 09:00 Dabigatran (Pradaxa) 150 mg DAILY PO ; Start 10/17/21 at 09:00 Morphine Sulfate (Morphine Ir) 15 mg BID PO ; Start 10/16/21 at 21:00; Status UNV Ondansetron HCl (Zofran Odt) 4 mg PRN BID PRN PO NAUSEA/VOMITING; Start 10/16/21 at 14:00 Polyethylene Glycol (miraLAX Powder BULK BOTTLE) 17 gm DAILY PO ; Start 10/17/21 at 09:00 Sertraline HCl (Zoloft) 25 mg DAILY PO ; Start 10/17/21 at 09:00 Non-Formulary Medication (Oxycodone Hcl (Oxycontin)) 5 mg BID PO ; Start 10/16/21 at 21:00; Status UNV Piperacillin Sod/ Tazobactam Sod (Zosyn Per Pharmacy) 1 each PRN DAILY PRN MC SEE COMMENTS; Start 10/16/21 at 14:30 Vancomycin HCl (Vanco Per Pharmacy) 1 each PRN DAILY PRN MC SEE COMMENTS; Start 10/16/21 at 14:30 Oxycodone/ Acetaminophen (Percocet 5/325) 1 tab PRN Q4HRS PRN PO PAIN; Start 10/16/21 at 14:30 Morphine Sulfate (Morphine Sulfate) 4 mg PRN Q2HR PRN IVP PAIN; Start 10/16/21 at 14:30 Ondansetron HCl (Zofran) 4 mg PRN Q8HRS PRN IVP NAUSEA/VOMITING; Start 10/16/21 at 14:30 Piperacillin Sod/ Tazobactam Sod 3.375 gm/Sodium Chloride 50 ml @ 100 mls/hr Q6H IV ; Start 10/16/21 at 15:00 Vancomycin HCl 1.5 gm/Sodium Chloride 500 ml @ 250 mls/hr 1X ONCE IV ; Start 10/16/21 at 16:00; Stop 10/16/21 at 17:59 Potassium Chloride/Dextrose/ Sod Cl 1,000 ml @ 80 mls/hr [id number] IV ; Start 10/16/21 at 15:30 Active Scripts Active Reported D3-50 (Cholecalciferol (Vitamin D3)) 50,000 Unit Capsule 1 Cap PO QFR 28 Days Cetirizine Hcl 10 Mg Tablet 1 Tab PO DAILY Calcium (Calcium Carbonate) 500 Mg Tablet 1 Tab PO QID 30 Days Fexofenadine Hcl 180 Mg Tablet 1 Tab PO DAILY Benzonatate 100 Mg Capsule 1 Cap PO TID Acetaminophen 500 Mg Tablet 2 Tab PO BID PRN 15 Days Omeprazole 40 Mg Capsule. 1 Cap PO DAILY Oxycodone Hcl Immed.release (Oxycodone Hcl) 5 Mg Tablet 5 Mg PO PRN Q4HRS PRN Miralax (Polyethylene Glycol 3350) 119 Gm Powder 17 Gm PO DAILY dissolve in water Xgeva (Denosumab) 120 Mg/1.7 Ml Vial 120 Mg SQ Q4WK Cetirizine Hcl 10 Mg Tablet 10 Mg PO DAILY Senna (Sennosides) 8.8 Mg/5 Ml Syrup 8.8 Mg PO DAILY Ondansetron Odt (Ondansetron) 4 Mg Tab.rapdis 4 Mg PO BID PRN Zoloft (Sertraline Hcl) 25 Mg Tablet 25 Mg PO DAILY Pradaxa (Dabigatran Etexilate Mesylate) 150 Mg Capsule 150 Mg PO BID Tagrisso (Osimertinib Mesylate) 80 Mg Tablet 80 Mg PO DAILY Allergies Allergies: Coded Allergies: No Known Drug Allergies (Unverified , 06/22/21) ROS Review of System Denies dysuria, urgency, frequency. Denies abdominal pain or vomiting. General: YES: Chills, Fatigue, Malaise PSYCHOLOGICAL ROS: YES: Sleep disturbances Eyes: No Blurry vision, No Decreased vision, No Double vision, No Dry eyes, No Excessive tearing, No Eye Pain, No Itchy Eyes, No Loss of vision, No Photophobia, No Scotomata, No Uses contacts, No Uses glasses, No Other HEENT: YES: Heacaches Respiratory: YES: Cough, SOB with excertion, Sputum Changes Cardiovascular: No Chest Pain, No Palpitations, No Orthopnea, No Paroxysmal Noc. Dyspnea, No Edema, No Lt Headedness, No Other Gastrointestinal: Yes Nausea; No Vomiting, No Abdominal Pain, No Diarrhea, No Constipation, No Melena, No Hematochezia, No Other Genitourinary: No Dysuria, No Frequency, No Incontinence, No Hematuria, No Retention, No Discharge, No Urgency, No Pain, No Flank Pain, No Other, No , No , No , No , No , No , No Musculoskeletal: No Gait Disturbance, No Joint Pain, No Joint Stiffness, No Joint Swelling, No Muscle Pain, No Muscular Weakness, No Pain In:, No Swelling In:, No Other Neurological: Yes Weakness Skin: Yes Dry Skin Physical Exam General: Alert, Cooperative, mild distress, moderate distress HEENT: Atraumatic Lungs: Other (rales, rhocnhi, RU noise, limtied volume) Heart: no gallops, irregularly irregular Breasts: Abnormal mass palpable Abdomen: Soft, No tenderness Extremities: No edema Skin: No rashes, No significant lesion Neuro: Cranial nerves 3-12 NL Psych/Mental Status: Mood NL Vitals Vitals Vital Signs Date Time Temp Pulse Resp B/P (MAP) Pulse Ox O2 Delivery O2 Flow Rate FiO2 10/16/21 13:15 100.9 91 19 160/84 (109) 97 Room Air 100.9 Labs Labs Laboratory Tests Test 10/16/21 07:05 10/16/21 07:45 10/16/21 09:50 White Blood Count 5.5 x10^3/uL (4.0-11.0) Red Blood Count 4.18 x10^6/uL (3.50-5.40) Hemoglobin 9.7 g/dL (12.0-15.5) Hematocrit 30.2 % (36.0-47.0) Mean Corpuscular Volume 72 fL (79-100) Mean Corpuscular Hemoglobin 23 pg (25-35) Mean Corpuscular Hemoglobin Concent 32 g/dL (31-37) Red Cell Distribution Width 16.9 % (11.5-14.5) Platelet Count 173 x10^3/uL (140-400) Neutrophils (%) (Auto) 79 % (31-73) Lymphocytes (%) (Auto) 10 % (24-48) Monocytes (%) (Auto) 10 % (0-9) Eosinophils (%) (Auto) 1 % (0-3) Basophils (%) (Auto) 0 % (0-3) Neutrophils # (Auto) 4.4 x10^3/uL (1.8-7.7) Lymphocytes # (Auto) 0.5 x10^3/uL (1.0-4.8) Monocytes # (Auto) 0.6 x10^3/uL (0.0-1.1) Eosinophils # (Auto) 0.0 x10^3/uL (0.0-0.7) Basophils # (Auto) 0.0 x10^3/uL (0.0-0.2) Sodium Level 136 mmol/L (136-145) Potassium Level 3.3 mmol/L (3.5-5.1) Chloride Level 102 mmol/L (98-107) Carbon Dioxide Level 26 mmol/L (21-32) Anion Gap 8 (6-14) Blood Urea Nitrogen 7 mg/dL (7-20) Creatinine 0.9 mg/dL (0.6-1.0) Estimated GFR (Cockcroft-Gault) 65.8 BUN/Creatinine Ratio 8 (6-20) Glucose Level 106 mg/dL (70-99) Lactic Acid Level 1.5 mmol/L (0.4-2.0) Calcium Level 8.1 mg/dL (8.5-10.1) Total Bilirubin 0.5 mg/dL (0.2-1.0) Aspartate Amino Transf (AST/SGOT) 80 U/L (15-37) Alanine Aminotransferase (ALT/SGPT) 62 U/L (14-59) Alkaline Phosphatase 88 U/L (46-116) Troponin I High Sensitivity 11 ng/L (4-50) Total Protein 7.5 g/dL (6.4-8.2) Albumin 3.1 g/dL (3.4-5.0) Albumin/Globulin Ratio 0.7 (1.0-1.7) Influenza Type A Antigen Negative (NEGATIVE) Influenza Type B Antigen Negative (NEGATIVE) SARS-CoV-2 Antigen (Rapid) Negative (NEGATIVE) Urine Collection Type U cath Urine Color Yellow Urine Clarity Clear Urine pH 7.5 (<5.0-8.0) Urine Specific [place] 1.010 (1.000-1.030) Urine Protein Negative mg/dL (NEG-TRACE) Urine Glucose (UA) Negative mg/dL (NEG) Urine Ketones (Stick) Negative mg/dL (NEG) Urine Blood Negative (NEG) Urine Nitrite Negative (NEG) Urine Bilirubin Negative (NEG) Urine Urobilinogen Dipstick 0.2 mg/dL (0.2 mg/dL) Urine Leukocyte Esterase Negative (NEG) Urine RBC Occ /HPF (0-2) Urine WBC 0 /HPF (0-4) Urine Bacteria 0 /HPF (0-FEW) Laboratory Tests Test 10/16/21 07:05 10/16/21 07:45 10/16/21 09:50 White Blood Count 5.5 x10^3/uL (4.0-11.0) Red Blood Count 4.18 x10^6/uL (3.50-5.40) Hemoglobin 9.7 g/dL (12.0-15.5) Hematocrit 30.2 % (36.0-47.0) Mean Corpuscular Volume 72 fL (79-100) Mean Corpuscular Hemoglobin 23 pg (25-35) Mean Corpuscular Hemoglobin Concent 32 g/dL (31-37) Red Cell Distribution Width 16.9 % (11.5-14.5) Platelet Count 173 x10^3/uL (140-400) Neutrophils (%) (Auto) 79 % (31-73) Lymphocytes (%) (Auto) 10 % (24-48) Monocytes (%) (Auto) 10 % (0-9) Eosinophils (%) (Auto) 1 % (0-3) Basophils (%) (Auto) 0 % (0-3) Neutrophils # (Auto) 4.4 x10^3/uL (1.8-7.7) Lymphocytes # (Auto) 0.5 x10^3/uL (1.0-4.8) Monocytes # (Auto) 0.6 x10^3/uL (0.0-1.1) Eosinophils # (Auto) 0.0 x10^3/uL (0.0-0.7) Basophils # (Auto) 0.0 x10^3/uL (0.0-0.2) Sodium Level 136 mmol/L (136-145) Potassium Level 3.3 mmol/L (3.5-5.1) Chloride Level 102 mmol/L (98-107) Carbon Dioxide Level 26 mmol/L (21-32) Anion Gap 8 (6-14) Blood Urea Nitrogen 7 mg/dL (7-20) Creatinine 0.9 mg/dL (0.6-1.0) Estimated GFR (Cockcroft-Gault) 65.8 BUN/Creatinine Ratio 8 (6-20) Glucose Level 106 mg/dL (70-99) Lactic Acid Level 1.5 mmol/L (0.4-2.0) Calcium Level 8.1 mg/dL (8.5-10.1) Total Bilirubin 0.5 mg/dL (0.2-1.0) Aspartate Amino Transf (AST/SGOT) 80 U/L (15-37) Alanine Aminotransferase (ALT/SGPT) 62 U/L (14-59) Alkaline Phosphatase 88 U/L (46-116) Troponin I High Sensitivity 11 ng/L (4-50) Total Protein 7.5 g/dL (6.4-8.2) Albumin 3.1 g/dL (3.4-5.0) Albumin/Globulin Ratio 0.7 (1.0-1.7) Influenza Type A Antigen Negative (NEGATIVE) Influenza Type B Antigen Negative (NEGATIVE) SARS-CoV-2 Antigen (Rapid) Negative (NEGATIVE) Urine Collection Type U cath Urine Color Yellow Urine Clarity Clear Urine pH 7.5 (<5.0-8.0) Urine Specific [place] 1.010 (1.000-1.030) Urine Protein Negative mg/dL (NEG-TRACE) Urine Glucose (UA) Negative mg/dL (NEG) Urine Ketones (Stick) Negative mg/dL (NEG) Urine Blood Negative (NEG) Urine Nitrite Negative (NEG) Urine Bilirubin Negative (NEG) Urine Urobilinogen Dipstick 0.2 mg/dL (0.2 mg/dL) Urine Leukocyte Esterase Negative (NEG) Urine RBC Occ /HPF (0-2) Urine WBC 0 /HPF (0-4) Urine Bacteria 0 /HPF (0-FEW) VTE Prophylaxis Ordered VTE Prophylaxis Devices: No VTE Pharmacological Prophylaxi: Yes Assessment/Plan Assessment/Plan sepsis, pneumonia, concern for post-obstructive pneumonia, consult PULM IV fluid andn IV abnx hypokalemia lung cancer, mets to bone reported, consult Onc, has been seen at [facility] nuase arm pain FULL Code reviewed with RN, pt talked to her son and he helped translate Justifications for Admission Other Justification TERESA JENKINS MD Oct 16, 2021 15:06
[2021-10-16] MEDS: PIPERACILLIN/TAZOBACTAM 3.375 GM in IV NORMAL SALINE 50ML 50 ML IV SCH ×2 (15:11→22:18)
[2021-10-16] MEDS: POTASSIUM CL 20MEQ D5-0.45NACL 1,000 ML IV SCH (15:12)
[2021-10-16] MEDS: POTASSIUM CHLORIDE 20 MEQ TABLET.ER. PO SCH (15:12)
[2021-10-16] MEDS: ONDANSETRON PF 4 MG/2 ML VIAL. IVP PRN (15:13)
[2021-10-16] MEDS: MORPHINE SULFATE 2 MG/ML INJ. IVP PRN (15:14)
[2021-10-16] MEDS ORDERED: VANCOMYCIN 1.5 GM in IV NORMAL SALINE 500ML BAG 500 ML IV ONE (16:00)
--- NOTE | 2021-10-16 16:21 | PDOC ---
PULMONARY PROGRESS NOTES DATE: 10/16/21 TIME: 16:20 Vitals Vital Signs Date Time Temp Pulse Resp B/P (MAP) Pulse Ox O2 Delivery O2 Flow Rate FiO2 10/16/21 15:14 Room Air 10/16/21 13:15 100.9 91 19 160/84 (109) 97 100.9 Labs Laboratory Tests Test 10/16/21 07:05 10/16/21 07:45 10/16/21 09:50 White Blood Count 5.5 x10^3/uL (4.0-11.0) Red Blood Count 4.18 x10^6/uL (3.50-5.40) Hemoglobin 9.7 g/dL (12.0-15.5) Hematocrit 30.2 % (36.0-47.0) Mean Corpuscular Volume 72 fL (79-100) Mean Corpuscular Hemoglobin 23 pg (25-35) Mean Corpuscular Hemoglobin Concent 32 g/dL (31-37) Red Cell Distribution Width 16.9 % (11.5-14.5) Platelet Count 173 x10^3/uL (140-400) Neutrophils (%) (Auto) 79 % (31-73) Lymphocytes (%) (Auto) 10 % (24-48) Monocytes (%) (Auto) 10 % (0-9) Eosinophils (%) (Auto) 1 % (0-3) Basophils (%) (Auto) 0 % (0-3) Neutrophils # (Auto) 4.4 x10^3/uL (1.8-7.7) Lymphocytes # (Auto) 0.5 x10^3/uL (1.0-4.8) Monocytes # (Auto) 0.6 x10^3/uL (0.0-1.1) Eosinophils # (Auto) 0.0 x10^3/uL (0.0-0.7) Basophils # (Auto) 0.0 x10^3/uL (0.0-0.2) Sodium Level 136 mmol/L (136-145) Potassium Level 3.3 mmol/L (3.5-5.1) Chloride Level 102 mmol/L (98-107) Carbon Dioxide Level 26 mmol/L (21-32) Anion Gap 8 (6-14) Blood Urea Nitrogen 7 mg/dL (7-20) Creatinine 0.9 mg/dL (0.6-1.0) Estimated GFR (Cockcroft-Gault) 65.8 BUN/Creatinine Ratio 8 (6-20) Glucose Level 106 mg/dL (70-99) Lactic Acid Level 1.5 mmol/L (0.4-2.0) Calcium Level 8.1 mg/dL (8.5-10.1) Total Bilirubin 0.5 mg/dL (0.2-1.0) Aspartate Amino Transf (AST/SGOT) 80 U/L (15-37) Alanine Aminotransferase (ALT/SGPT) 62 U/L (14-59) Alkaline Phosphatase 88 U/L (46-116) Troponin I High Sensitivity 11 ng/L (4-50) Total Protein 7.5 g/dL (6.4-8.2) Albumin 3.1 g/dL (3.4-5.0) Albumin/Globulin Ratio 0.7 (1.0-1.7) Influenza Type A Antigen Negative (NEGATIVE) Influenza Type B Antigen Negative (NEGATIVE) SARS-CoV-2 Antigen (Rapid) Negative (NEGATIVE) Urine Collection Type U cath Urine Color Yellow Urine Clarity Clear Urine pH 7.5 (<5.0-8.0) Urine Specific [place] 1.010 (1.000-1.030) Urine Protein Negative mg/dL (NEG-TRACE) Urine Glucose (UA) Negative mg/dL (NEG) Urine Ketones (Stick) Negative mg/dL (NEG) Urine Blood Negative (NEG) Urine Nitrite Negative (NEG) Urine Bilirubin Negative (NEG) Urine Urobilinogen Dipstick 0.2 mg/dL (0.2 mg/dL) Urine Leukocyte Esterase Negative (NEG) Urine RBC Occ /HPF (0-2) Urine WBC 0 /HPF (0-4) Urine Bacteria 0 /HPF (0-FEW) Laboratory Tests Test 10/16/21 07:05 10/16/21 07:45 10/16/21 09:50 White Blood Count 5.5 x10^3/uL (4.0-11.0) Red Blood Count 4.18 x10^6/uL (3.50-5.40) Hemoglobin 9.7 g/dL (12.0-15.5) Hematocrit 30.2 % (36.0-47.0) Mean Corpuscular Volume 72 fL (79-100) Mean Corpuscular Hemoglobin 23 pg (25-35) Mean Corpuscular Hemoglobin Concent 32 g/dL (31-37) Red Cell Distribution Width 16.9 % (11.5-14.5) Platelet Count 173 x10^3/uL (140-400) Neutrophils (%) (Auto) 79 % (31-73) Lymphocytes (%) (Auto) 10 % (24-48) Monocytes (%) (Auto) 10 % (0-9) Eosinophils (%) (Auto) 1 % (0-3) Basophils (%) (Auto) 0 % (0-3) Neutrophils # (Auto) 4.4 x10^3/uL (1.8-7.7) Lymphocytes # (Auto) 0.5 x10^3/uL (1.0-4.8) Monocytes # (Auto) 0.6 x10^3/uL (0.0-1.1) Eosinophils # (Auto) 0.0 x10^3/uL (0.0-0.7) Basophils # (Auto) 0.0 x10^3/uL (0.0-0.2) Sodium Level 136 mmol/L (136-145) Potassium Level 3.3 mmol/L (3.5-5.1) Chloride Level 102 mmol/L (98-107) Carbon Dioxide Level 26 mmol/L (21-32) Anion Gap 8 (6-14) Blood Urea Nitrogen 7 mg/dL (7-20) Creatinine 0.9 mg/dL (0.6-1.0) Estimated GFR (Cockcroft-Gault) 65.8 BUN/Creatinine Ratio 8 (6-20) Glucose Level 106 mg/dL (70-99) Lactic Acid Level 1.5 mmol/L (0.4-2.0) Calcium Level 8.1 mg/dL (8.5-10.1) Total Bilirubin 0.5 mg/dL (0.2-1.0) Aspartate Amino Transf (AST/SGOT) 80 U/L (15-37) Alanine Aminotransferase (ALT/SGPT) 62 U/L (14-59) Alkaline Phosphatase 88 U/L (46-116) Troponin I High Sensitivity 11 ng/L (4-50) Total Protein 7.5 g/dL (6.4-8.2) Albumin 3.1 g/dL (3.4-5.0) Albumin/Globulin Ratio 0.7 (1.0-1.7) Influenza Type A Antigen Negative (NEGATIVE) Influenza Type B Antigen Negative (NEGATIVE) SARS-CoV-2 Antigen (Rapid) Negative (NEGATIVE) Urine Collection Type U cath Urine Color Yellow Urine Clarity Clear Urine pH 7.5 (<5.0-8.0) Urine Specific [place] 1.010 (1.000-1.030) Urine Protein Negative mg/dL (NEG-TRACE) Urine Glucose (UA) Negative mg/dL (NEG) Urine Ketones (Stick) Negative mg/dL (NEG) Urine Blood Negative (NEG) Urine Nitrite Negative (NEG) Urine Bilirubin Negative (NEG) Urine Urobilinogen Dipstick 0.2 mg/dL (0.2 mg/dL) Urine Leukocyte Esterase Negative (NEG) Urine RBC Occ /HPF (0-2) Urine WBC 0 /HPF (0-4) Urine Bacteria 0 /HPF (0-FEW) Medications Active Scripts Medications Dose Route/Sig Max Daily Dose Days Date Category Dose Instructions D3-50 (Cholecalciferol (Vitamin D3)) 50,000 Unit Capsule 1 Cap PO QFR 28 10/16/21 Reported Cetirizine Hcl 10 Mg Tablet 1 Tab PO DAILY 10/16/21 Reported Calcium (Calcium Carbonate) 500 Mg Tablet 1 Tab PO QID 30 10/16/21 Reported Fexofenadine Hcl 180 Mg Tablet 1 Tab PO DAILY 10/16/21 Reported Benzonatate 100 Mg Capsule 1 Cap PO TID 10/16/21 Reported Acetaminophen 500 Mg Tablet 2 Tab PO BID PRN 15 10/16/21 Reported Omeprazole 40 Mg Capsule. 1 Cap PO DAILY 10/16/21 Reported Oxycodone Hcl Immed.release (Oxycodone Hcl) 5 Mg Tablet 5 Mg PO PRN Q4HRS PRN 10/16/21 Reported Miralax (Polyethylene Glycol 3350) 119 Gm Powder 17 Gm PO DAILY 06/22/21 Reported dissolve in water Xgeva (Denosumab) 120 Mg/1.7 Ml Vial 120 Mg SQ Q4WK 06/22/21 Reported Cetirizine Hcl 10 Mg Tablet 10 Mg PO DAILY 06/22/21 Reported Senna (Sennosides) 8.8 Mg/5 Ml Syrup 8.8 Mg PO DAILY 06/22/21 Reported Ondansetron Odt (Ondansetron) 4 Mg Tab.rapdis 4 Mg PO BID PRN 06/22/21 Reported Zoloft (Sertraline Hcl) 25 Mg Tablet 25 Mg PO DAILY 06/22/21 Reported Pradaxa (Dabigatran Etexilate Mesylate) 150 Mg Capsule 150 Mg PO BID 06/22/21 Reported Tagrisso (Osimertinib Mesylate) 80 Mg Tablet 80 Mg PO DAILY 06/22/21 Reported Impression . Full note dictated Possible postobstructive pneumonia Obtain CT chest YANDEL CONTRERAS MD Oct 16, 2021 16:21
[2021-10-16] MEDS ORDERED: ENOXAPARIN 40 MG/0.4 ML SYRINGE. SQ SCH (17:00)
[2021-10-16] MEDS: VANCOMYCIN PER PHARMACY MC PRN (18:24)
--- NOTE | 2021-10-16 18:28 | NUR ---
Pharmacy Vancomycin Dosing Note S:Consulted to monitor and dose vancomycin started 10/16/21. O:NOEL TILLMAN is a 50 year old F with Pneumonia Height: 5 feet, 3 inches Weight: 60.4 kg [place] Body Weight: 56.90 Adjusted Body Weight: 58.30 Dosing Weight: Actual Other Antibiotics: DOXYCYCLINE ZOSYN LABS: Last BUN: 7 Last Creatinine: 0.9 Creatinine Clearance: 64 mL/min Last WBC: 5.5 Last Procalcitonin: Tmax (past 24 hours): 103 Microbiology: - I/O: 1150/- Last dose given 10/16/21 at 1744 Vancomycin Dosing: Loading Dose: 1500 mg x1 Dosing Weight: Actual Target Trough: 15-20 A: Based on: weight and renal function P: 1. Begin Vancomycin 1000 mg IV q12h 2. Follow up Trough level on 10/18/21 at 0530 3. Pharmacy will continue to monitor, follow and adjust therapy as needed. Dawn Lane, [facility], 10/16/21 1522
[2021-10-16 19:00] VITALS: BP 118/62
[2021-10-16] MEDS: ACETAMINOPHEN 500 MG TABLET PO PRN (19:55)
--- NOTE | 2021-10-16 20:05 | CONS ---
DATE OF CONSULTATION: 10/16/2021 ATTENDING PHYSICIAN: Mildred Garcia MD REASON FOR CONSULTATION: The patient is seen in pulmonary consultation at the request of Dr. Garcia for increasing shortness of air, fever, history of lung cancer. HISTORY OF PRESENT ILLNESS: The patient is a 50-year-old with a history of lung cancer with metastases, presented with fever, chills, chest pain, diffuse bony pain. She had a fever at home of 102. She denied any frequency. She has received radiation, but no chemotherapy. I reviewed her previous scans of her chest. She had a scan of the chest on 04/07. CT chest at that time revealed an elongated mass in the right middle lobe, not changed in size from 01/05. There was no new developing masses, no infiltrates. She had some sclerotic lesion in the right scapula. A CT abdomen and pelvis revealed no evidence of new metastatic disease. PAST MEDICAL HISTORY: Lung cancer as described above. She received radiation. PAST SURGICAL HISTORY: No major surgeries. ALLERGIES: No known drug allergies. SOCIAL HISTORY: The patient is currently not smoking. REVIEW OF SYSTEMS: As indicated above, otherwise other systems could not be reviewed. The patient does not speak [place]. The history is obtained by reviewing the current documentation. CURRENT MEDICATIONS: List was reviewed. She is receiving IV antibiotics. PHYSICAL EXAMINATION: VITAL SIGNS: Stable. O2 saturation on room air was 97%. T-max yesterday was 100.9. HEENT: Eyes: The sclerae were nonicteric. NECK: Jugular venous distention was not elevated. No lymphadenopathy. CHEST: Full expansion. LUNGS: Adequate flow with no wheezes. CARDIOVASCULAR: Regular rate and rhythm with S1, S2, no S3. ABDOMEN: Soft. EXTREMITIES: No clubbing, cyanosis or edema. LABORATORY DATA: Reviewed. White count was 5.5. Electrolytes were noted. Potassium was low. AST and ALT were elevated. Albumin was low. Serology for influenza was negative. SARS-CoV-2 rapid test was negative. IMPRESSION: 1. Fever, suspect secondary to pneumonia, possibly SARS-CoV-2. 2. Metastatic lung cancer, status post radiation with repeat CT chest back in 03/2021 revealing no evidence of new disease. She had a continued elongated mass in the right middle lobe, not changed from previous exam of 01/05. 3. Sclerotic lesion in the right scapula related to lung carcinoma. 4. Possible obstructive pneumonia. PLAN: 1. Continue empiric antibiotics. 2. Obtain CT chest. 3. Follow up on SARS-CoV-2 nucleic amplification test. 4. DVT prophylaxis. I do appreciate the privilege in sharing in the patient's care. CHRIS DR: Theodore TID: [id number]
[2021-10-16] MEDS ORDERED: OXYCODONE HCL 5 MG PO SCH (21:00)
[2021-10-16] MEDS ORDERED: MORPHINE IR 15 MG TABLET PO SCH (21:00)
--- NOTE | 2021-10-16 21:14 | NUR ---
Pt having hemoptysis - small blood clots noted in basin. Dr Brian toro. [id number]: Dr Torres returned page and made aware of pt status. No new orders given at this time. Will continue to monitor pt status closely. Addendum: 10/17/21 at 0054 by LOI COYLE RN RN [id number]: Pt up to [place] - hemoptysis noted again in basin - appears as if sm amount of tissue was expectorated. Will continue to monitor pt status closely.
[2021-10-16] MEDS: BENZONATATE 100 MG CAPSULE. PO SCH (22:17)
[2021-10-16] MEDS: CALCIUM CARBONATE 500 MG TABLET PO SCH (22:18)
[2021-10-16 23:00] VITALS: BP 99/55
[2021-10-17] MEDS: DOXYCYCLINE HYCLATE 100 MG in IV DEXTROSE 5% 100ML 100 ML IV SCH ×3 (00:22→21:32)
[2021-10-17] MEDS: MORPHINE SULFATE 2 MG/ML INJ. IVP PRN ×3 (00:46→19:03)
[2021-10-17 03:00] VITALS: BP 116/78
--- NOTE | 2021-10-17 04:30 | EKG ---
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
[2021-10-17] MEDS: PIPERACILLIN/TAZOBACTAM 3.375 GM in IV NORMAL SALINE 50ML 50 ML IV SCH ×3 (05:26→17:53)
[2021-10-17 07:00] VITALS: BP 122/71
--- NOTE | 2021-10-17 07:21 | PDOC ---
PULMONARY PROGRESS NOTES DATE: 10/17/21 TIME: 07:19 Subjective sob cough better is tired Vitals Vital Signs Date Time Temp Pulse Resp B/P (MAP) Pulse Ox O2 Delivery O2 Flow Rate FiO2 10/17/21 03:00 98.8 76 18 116/78 (91) 95 Room Air 98.8 ROS: No Nausea, No Chest Pain HEENT: Other (nc at ) Lungs: Other (b lat diminished bs) Cardiovascular: S1, S2 Abdomen: Soft Neuro Exam: Alert Skin: Warm Labs Laboratory Tests Test 10/16/21 07:05 10/16/21 07:45 10/16/21 09:50 White Blood Count 5.5 x10^3/uL (4.0-11.0) Red Blood Count 4.18 x10^6/uL (3.50-5.40) Hemoglobin 9.7 g/dL (12.0-15.5) Hematocrit 30.2 % (36.0-47.0) Mean Corpuscular Volume 72 fL (79-100) Mean Corpuscular Hemoglobin 23 pg (25-35) Mean Corpuscular Hemoglobin Concent 32 g/dL (31-37) Red Cell Distribution Width 16.9 % (11.5-14.5) Platelet Count 173 x10^3/uL (140-400) Neutrophils (%) (Auto) 79 % (31-73) Lymphocytes (%) (Auto) 10 % (24-48) Monocytes (%) (Auto) 10 % (0-9) Eosinophils (%) (Auto) 1 % (0-3) Basophils (%) (Auto) 0 % (0-3) Neutrophils # (Auto) 4.4 x10^3/uL (1.8-7.7) Lymphocytes # (Auto) 0.5 x10^3/uL (1.0-4.8) Monocytes # (Auto) 0.6 x10^3/uL (0.0-1.1) Eosinophils # (Auto) 0.0 x10^3/uL (0.0-0.7) Basophils # (Auto) 0.0 x10^3/uL (0.0-0.2) Sodium Level 136 mmol/L (136-145) Potassium Level 3.3 mmol/L (3.5-5.1) Chloride Level 102 mmol/L (98-107) Carbon Dioxide Level 26 mmol/L (21-32) Anion Gap 8 (6-14) Blood Urea Nitrogen 7 mg/dL (7-20) Creatinine 0.9 mg/dL (0.6-1.0) Estimated GFR (Cockcroft-Gault) 65.8 BUN/Creatinine Ratio 8 (6-20) Glucose Level 106 mg/dL (70-99) Lactic Acid Level 1.5 mmol/L (0.4-2.0) Calcium Level 8.1 mg/dL (8.5-10.1) Total Bilirubin 0.5 mg/dL (0.2-1.0) Aspartate Amino Transf (AST/SGOT) 80 U/L (15-37) Alanine Aminotransferase (ALT/SGPT) 62 U/L (14-59) Alkaline Phosphatase 88 U/L (46-116) Troponin I High Sensitivity 11 ng/L (4-50) Total Protein 7.5 g/dL (6.4-8.2) Albumin 3.1 g/dL (3.4-5.0) Albumin/Globulin Ratio 0.7 (1.0-1.7) Influenza Type A Antigen Negative (NEGATIVE) Influenza Type B Antigen Negative (NEGATIVE) SARS-CoV-2 Antigen (Rapid) Negative (NEGATIVE) Urine Collection Type U cath Urine Color Yellow Urine Clarity Clear Urine pH 7.5 (<5.0-8.0) Urine Specific [place] 1.010 (1.000-1.030) Urine Protein Negative mg/dL (NEG-TRACE) Urine Glucose (UA) Negative mg/dL (NEG) Urine Ketones (Stick) Negative mg/dL (NEG) Urine Blood Negative (NEG) Urine Nitrite Negative (NEG) Urine Bilirubin Negative (NEG) Urine Urobilinogen Dipstick 0.2 mg/dL (0.2 mg/dL) Urine Leukocyte Esterase Negative (NEG) Urine RBC Occ /HPF (0-2) Urine WBC 0 /HPF (0-4) Urine Bacteria 0 /HPF (0-FEW) Laboratory Tests Test 10/16/21 07:45 10/16/21 09:50 Influenza Type A Antigen Negative (NEGATIVE) Influenza Type B Antigen Negative (NEGATIVE) SARS-CoV-2 Antigen (Rapid) Negative (NEGATIVE) Urine Collection Type U cath Urine Color Yellow Urine Clarity Clear Urine pH 7.5 (<5.0-8.0) Urine Specific [place] 1.010 (1.000-1.030) Urine Protein Negative mg/dL (NEG-TRACE) Urine Glucose (UA) Negative mg/dL (NEG) Urine Ketones (Stick) Negative mg/dL (NEG) Urine Blood Negative (NEG) Urine Nitrite Negative (NEG) Urine Bilirubin Negative (NEG) Urine Urobilinogen Dipstick 0.2 mg/dL (0.2 mg/dL) Urine Leukocyte Esterase Negative (NEG) Urine RBC Occ /HPF (0-2) Urine WBC 0 /HPF (0-4) Urine Bacteria 0 /HPF (0-FEW) Medications Active Scripts Medications Dose Route/Sig Max Daily Dose Days Date Category Dose Instructions D3-50 (Cholecalciferol (Vitamin D3)) 50,000 Unit Capsule 1 Cap PO QFR 28 10/16/21 Reported Cetirizine Hcl 10 Mg Tablet 1 Tab PO DAILY 10/16/21 Reported Calcium (Calcium Carbonate) 500 Mg Tablet 1 Tab PO QID 30 10/16/21 Reported Fexofenadine Hcl 180 Mg Tablet 1 Tab PO DAILY 10/16/21 Reported Benzonatate 100 Mg Capsule 1 Cap PO TID 10/16/21 Reported Acetaminophen 500 Mg Tablet 2 Tab PO BID PRN 15 10/16/21 Reported Omeprazole 40 Mg Capsule.dr 1 Cap PO DAILY 10/16/21 Reported Oxycodone Hcl Immed.release (Oxycodone Hcl) 5 Mg Tablet 5 Mg PO PRN Q4HRS PRN 10/16/21 Reported Miralax (Polyethylene Glycol 3350) 119 Gm Powder 17 Gm PO DAILY 06/22/21 Reported dissolve in water Xgeva (Denosumab) 120 Mg/1.7 Ml Vial 120 Mg SQ Q4WK 06/22/21 Reported Cetirizine Hcl 10 Mg Tablet 10 Mg PO DAILY 06/22/21 Reported Senna (Sennosides) 8.8 Mg/5 Ml Syrup 8.8 Mg PO DAILY 06/22/21 Reported Ondansetron Odt (Ondansetron) 4 Mg Tab.rapdis 4 Mg PO BID PRN 06/22/21 Reported Zoloft (Sertraline Hcl) 25 Mg Tablet 25 Mg PO DAILY 06/22/21 Reported Pradaxa (Dabigatran Etexilate Mesylate) 150 Mg Capsule 150 Mg PO BID 06/22/21 Reported Tagrisso (Osimertinib Mesylate) 80 Mg Tablet 80 Mg PO DAILY 06/22/21 Reported Impression . IMPRESSION: 1. Fever, suspect secondary to pneumonia, no SARS-CoV-2. 2. Metastatic lung cancer, status post radiation with repeat CT chest back in 03/2021 revealing no evidence of new disease. She had a continued elongated mass in the right middle lobe, not changed from previous exam of 01/05. 3. Sclerotic lesion in the right scapula related to lung carcinoma. 4. Possible obstructive pneumonia. Plan . PLAN: 1. Continue empiric antibiotics. 2. will review CT chest. 3. SARS-CoV-2 nucleic amplification test. negative 4. DVT prophylaxis is on pradaxa 5. start BD yemi w DANE Dos Santos MD Oct 17, 2021 07:21
[2021-10-17] MEDS: IPRATRPIUM/ALBUTEROL 0.5/2.5MG 3 ML NEBU. NEB SCH ×4 (08:00→20:53)
[2021-10-17] MEDS: VANCOMYCIN 1 GM in IV NORMAL SALINE 250ML 250 ML IV SCH ×2 (08:03→18:32)
[2021-10-17] MEDS: BENZONATATE 100 MG CAPSULE. PO SCH ×3 (08:04→21:32)
[2021-10-17] MEDS: POTASSIUM CHLORIDE 20 MEQ TABLET.ER. PO SCH (08:04)
[2021-10-17] MEDS: CETIRIZINE HCL 10 MG TABLET. PO SCH (08:04)
[2021-10-17] MEDS: CALCIUM CARBONATE 500 MG TABLET PO SCH ×4 (08:04→21:32)
[2021-10-17] MEDS: SERTRALINE 25 MG TABLET. PO SCH (08:04)
[2021-10-17] MEDS: SENNOSIDES 8.6 MG TABLET PO SCH (08:04)
[2021-10-17] MEDS: PANTOPRAZOLE 40 MG TABLET.DR. PO SCH (08:04)
--- NOTE | 2021-10-17 08:40 | RAD ---
CT THORAX WO dated 10/16/2021 4:36 PM Indication:Reason: lung mass fever / Spl. Instructions: / History: Comparison: CT 07/23/2021 Technique: Helical noncontrast images were performed. One or more of the following individualized dose reduction techniques were utilized for this examinat ion: 1. Automated exposure control 2. Adjustment of the mA and/or kV according to patient size 3. Use of iterative reconstruction technique Findings: Masslike opacity in the right lung apparently centered in the upper lobe along the minor fissure appe ars very similar to the previous study. Allowing for slight difference in slice positioning, no measu rable change has occurred. Pleural-based density posteriorly toward the right lung apex is also stabl e. There is probably now mild dependent atelectasis in both lungs. No significant new infiltrates is seen. There is no new mass or nodule. The central airways show no obstruction. No enlarged lymph node s are seen. Evaluation of the mediastinum and nawaf is slightly limited by noncontrast technique. Images through the upper abdomen show no significant abnormality. Sclerotic bone lesions appear simil ar. IMPRESSION: Stable appearance of right lung mass. Mild atelectasis in the lungs. No other significant new findings. Electronically signed by: Maxwell Adame Jr., MD (10/17/2021 8:37 AM) [id number]
[2021-10-17] MEDS: POTASSIUM CL 20MEQ D5-0.45NACL 1,000 ML IV SCH ×2 (08:54→17:53)
[2021-10-17] MEDS ORDERED: CETIRIZINE HCL 10 MG TABLET. PO SCH (09:00)
[2021-10-17] MEDS ORDERED: POLYETHYLENE GLYCOL 3350 BTL 238 GM POWDER PO SCH (09:00)
[2021-10-17] MEDS ORDERED: FEXOFENADINE HCL PO SCH (09:00)
[2021-10-17 09:45] LABS: BASO % 0 % (0-3); EOS % 1 % (0-3); HEMATOCRIT 28.6 % (36.0-47.0); HEMOGLOBIN 8.9 g/dL (12.0-15.5); LYMPH # 0.8 x10^3/uL (1.0-4.8); LYMPH % 20 % (24-48); MEAN CORPUSCULAR HEMOGLOBIN 23 pg (25-35); MEAN CORPUSCULAR HGB CONC 31 g/dL (31-37); MEAN CORPUSCULAR VOLUME 74 fL (79-100); MONO # 0.8 x10^3/uL (0.0-1.1); MONO % 20 % (0-9); NEUT # 2.5 x10^3/uL (1.8-7.7); NEUT % 59 % (31-73); PLATELET COUNT 135 x10^3/uL (140-400); RED BLOOD COUNT 3.89 x10^6/uL (3.50-5.40); RED CELL DISTRIBUTION WIDTH 17.1 % (11.5-14.5); WHITE BLOOD COUNT 4.2 x10^3/uL (4.0-11.0)
[2021-10-17] MEDS: OSIMERTINIB MESYLATE 80 MG PO SCH (10:00)
[2021-10-17 10:09] LABS: ALBUMIN 2.7 g/dL (3.4-5.0); ALBUMIN/GLOBULIN RATIO 0.7 (1.0-1.7); CALCIUM 7.3 mg/dL (8.5-10.1); CREATININE 0.7 mg/dL (0.6-1.0); GFR 87.9; POTASSIUM 3.6 mmol/L (3.5-5.1); TOTAL BILIRUBIN 0.6 mg/dL (0.2-1.0); TOTAL PROTEIN 6.8 g/dL (6.4-8.2)
[2021-10-17] MEDS: POLYETHYLENE GLYCOL 3350 17 GM PACKET. PO SCH (10:25)
[2021-10-17] MEDS: DABIGATRAN ETEXILATE 150 MG CAPSULE. PO SCH (10:25)
[2021-10-17 11:00] VITALS: BP 138/71
--- NOTE | 2021-10-17 11:20 | PDOC ---
[employer] PROGRESS NOTE Date of Service DOS: DATE: 10/17/21 TIME: 11:14 Chief Complaint Chief Complaint sepsis pneumonia hypokalemia hx of lung cancer with mets to bone s/p radiation History of Present Illness History of Present Illness 10/17/2021 Patient seen and examined Chart reviewed Discussed with RN Patient sitting up in bed. Seems to be in pain while breathing, concerned for pleurisy. Has Roxicodone ordered for pain control She is satting well on room air Attempted to call the patient's son, Riley, while in the room but he did not answer Vitals/I&O Vitals/I&O: Vital Signs Date Time Temp Pulse Resp B/P (MAP) Pulse Ox O2 Delivery O2 Flow Rate FiO2 10/17/21 11:00 98.0 72 18 138/71 (93) 98 98.0 10/17/21 10:00 Room Air I & O 10/16/21 10/16/21 10/17/21 15:00 23:00 07:00 Intake Total 1100 ml 290 ml 320 ml Balance 1100 ml 290 ml 320 ml Physical Exam General: Alert, Cooperative, mild distress Heart: Regular rate Lungs: Wheezing Abdomen: Soft, No tenderness Extremities: No edema Skin: No rashes, No significant lesion Labs Labs: Laboratory Tests Test 10/17/21 09:15 White Blood Count 4.2 x10^3/uL (4.0-11.0) Red Blood Count 3.89 x10^6/uL (3.50-5.40) Hemoglobin 8.9 g/dL (12.0-15.5) Hematocrit 28.6 % (36.0-47.0) Mean Corpuscular Volume 74 fL (79-100) Mean Corpuscular Hemoglobin 23 pg (25-35) Mean Corpuscular Hemoglobin Concent 31 g/dL (31-37) Red Cell Distribution Width 17.1 % (11.5-14.5) Platelet Count 135 x10^3/uL (140-400) Neutrophils (%) (Auto) 59 % (31-73) Lymphocytes (%) (Auto) 20 % (24-48) Monocytes (%) (Auto) 20 % (0-9) Eosinophils (%) (Auto) 1 % (0-3) Basophils (%) (Auto) 0 % (0-3) Neutrophils # (Auto) 2.5 x10^3/uL (1.8-7.7) Lymphocytes # (Auto) 0.8 x10^3/uL (1.0-4.8) Monocytes # (Auto) 0.8 x10^3/uL (0.0-1.1) Eosinophils # (Auto) 0.0 x10^3/uL (0.0-0.7) Basophils # (Auto) 0.0 x10^3/uL (0.0-0.2) Sodium Level 140 mmol/L (136-145) Potassium Level 3.6 mmol/L (3.5-5.1) Chloride Level 106 mmol/L (98-107) Carbon Dioxide Level 28 mmol/L (21-32) Anion Gap 6 (6-14) Blood Urea Nitrogen 6 mg/dL (7-20) Creatinine 0.7 mg/dL (0.6-1.0) Estimated GFR (Cockcroft-Gault) 87.9 BUN/Creatinine Ratio 9 (6-20) Glucose Level 103 mg/dL (70-99) Calcium Level 7.3 mg/dL (8.5-10.1) Total Bilirubin 0.6 mg/dL (0.2-1.0) Aspartate Amino Transf (AST/SGOT) 117 U/L (15-37) Alanine Aminotransferase (ALT/SGPT) 96 U/L (14-59) Alkaline Phosphatase 89 U/L (46-116) Total Protein 6.8 g/dL (6.4-8.2) Albumin 2.7 g/dL (3.4-5.0) Albumin/Globulin Ratio 0.7 (1.0-1.7) Procalcitonin < 0.10 ng/mL (0.00-0.10) Assessment and Plan Assessmemt and Plan Problems Medical Problems: (1) Atypical pneumonia Status: Acute (2) Pain of metastatic malignancy Status: Acute sepsis pneumonia hypokalemia pleurisy hx of lung cancer with mets to bone s/p radiation Plan: Continue IV abx Supplemental O2 PRN Home meds DVT prophylaxis Appreciate subspecialist input Full code Comment Review of Relevant I have reviewed the following items lilia (where applicable) has been applied. Medications: Current Medications Medications (Trade) Dose Ordered Sig/Charley Route PRN Reason Start Time Stop Time Status Last Admin Dose Admin Potassium Chloride (Klor-Con) 20 meq [id number] PO 10/16/21 15:00 10/17/21 08:04 Dabigatran (Pradaxa) 150 mg DAILY PO 10/17/21 09:00 10/17/21 10:25 Sertraline HCl (Zoloft) 25 mg DAILY PO 10/17/21 09:00 10/17/21 08:04 Vancomycin HCl (Vanco Per Pharmacy) 1 each PRN DAILY PRN MC SEE COMMENTS 10/16/21 14:30 10/16/21 18:24 Morphine Sulfate (Morphine Sulfate) 4 mg PRN Q2HR PRN IVP PAIN 10/16/21 14:30 10/17/21 08:57 Ondansetron HCl (Zofran) 4 mg PRN Q8HRS PRN IVP NAUSEA/VOMITING 10/16/21 14:30 10/16/21 15:13 Piperacillin Sod/ Tazobactam Sod 3.375 gm/Sodium Chloride 50 ml @ 100 mls/hr Q6H IV 10/16/21 15:00 10/17/21 05:26 Vancomycin HCl 1.5 gm/Sodium Chloride 500 ml @ 250 mls/hr 1X ONCE IV 10/16/21 16:00 10/16/21 17:59 DC 10/16/21 17:44 Potassium Chloride/Dextrose/ Sod Cl 1,000 ml @ 80 mls/hr [id number] IV 10/16/21 15:30 10/16/21 15:12 Doxycycline Hyclate 100 mg/ Dextrose 100 ml @ 50 mls/hr Q12HR IV 10/16/21 21:00 10/17/21 09:59 Enoxaparin Sodium (Lovenox 40mg Syringe) 40 mg Q24H SQ 10/16/21 17:00 10/16/21 17:44 Vancomycin HCl 1 gm/Sodium Chloride 250 ml @ 250 mls/hr Q12H IV 10/17/21 06:00 10/17/21 08:03 Acetaminophen (Tylenol) 1,000 mg BID PRN PO pain or fever 10/16/21 19:45 10/16/21 19:55 Benzonatate (Tessalon Perle) 100 mg TID PO 10/16/21 21:00 10/17/21 08:04 Calcium Carbonate/ Glycine (Oscal) 500 mg QID PO 10/16/21 21:00 10/17/21 08:04 Cetirizine HCl (ZyrTEC) 10 mg DAILY PO 10/17/21 09:00 10/17/21 08:04 Pantoprazole Sodium (Protonix) 40 mg DAILYAC PO 10/17/21 07:30 10/17/21 08:04 Non-Formulary Medication (Osimertinib Mesylate (Tagrisso)) 80 mg DAILY PO 10/17/21 10:30 10/17/21 10:00 Sennosides (Senna) 8.6 mg DAILY PO 10/17/21 09:00 10/17/21 08:04 Sodium Chloride 1,000 ml @ 1,000 mls/hr 1X ONCE IV 10/16/21 23:00 10/16/21 23:59 DC 10/16/21 23:03 Polyethylene Glycol (miraLAX PACKET) 17 gm DAILY PO 10/17/21 10:30 10/17/21 10:25 Justifications for Admission Other Justification GEOVANY DAVE III DO Oct 17, 2021 11:20
[2021-10-17] MEDS: VANCOMYCIN PER PHARMACY MC PRN (13:39)
[2021-10-17 15:00] VITALS: BP 128/71
[2021-10-17] MEDS: ACETAMINOPHEN 500 MG TABLET PO PRN (17:54)
[2021-10-17 19:00] VITALS: BP 134/79
[2021-10-17] MEDS ORDERED: fentaNYL PF VIAL 100 MCG/2 ML VIAL IVP PRN (21:15)
[2021-10-17] MEDS ORDERED: HYDROmorphone 2 MG/ML VIAL IVP PRN (21:15)
--- NOTE | 2021-10-17 21:59 | NUR ---
Pt reporting pain in both L upper lobe of lung down to LUQ and down around to back. Also reporting pain in R shoulder/RUL due to lung cancer. Was given 2mg Dilaudid and reported better pain control. Will continue to monitor pt status.
[2021-10-17 23:03] VITALS: BP 145/71
[2021-10-18] MEDS: diphenhydrAMINE HCL 25 MG CAPSULE PO PRN (00:19)
[2021-10-18] MEDS: PIPERACILLIN/TAZOBACTAM 3.375 GM in IV NORMAL SALINE 50ML 50 ML IV SCH ×5 (00:21→23:38)
[2021-10-18 02:54] VITALS: BP 125/71
[2021-10-18 05:46] LABS: VANC TR 15.8 mcg/mL (10.0-20.0)
--- NOTE | 2021-10-18 05:54 | PDOC ---
PULMONARY PROGRESS NOTES DATE: 10/18/21 TIME: 05:54 Subjective sob cough better is tired Vitals Vital Signs Date Time Temp Pulse Resp B/P (MAP) Pulse Ox O2 Delivery O2 Flow Rate FiO2 10/18/21 02:54 97.8 66 18 125/71 (89) 94 Room Air 97.8 ROS: No Nausea, No Chest Pain HEENT: Other (nc at ) Lungs: Other (b lat diminished bs) Cardiovascular: S1, S2 Abdomen: Soft Neuro Exam: Alert Skin: Warm Labs Laboratory Tests Test 10/16/21 07:05 10/16/21 07:45 10/16/21 09:50 10/17/21 09:15 White Blood Count 5.5 x10^3/uL (4.0-11.0) 4.2 x10^3/uL (4.0-11.0) Red Blood Count 4.18 x10^6/uL (3.50-5.40) 3.89 x10^6/uL (3.50-5.40) Hemoglobin 9.7 g/dL (12.0-15.5) 8.9 g/dL (12.0-15.5) Hematocrit 30.2 % (36.0-47.0) 28.6 % (36.0-47.0) Mean Corpuscular Volume 72 fL (79-100) 74 fL (79-100) Mean Corpuscular Hemoglobin 23 pg (25-35) 23 pg (25-35) Mean Corpuscular Hemoglobin Concent 32 g/dL (31-37) 31 g/dL (31-37) Red Cell Distribution Width 16.9 % (11.5-14.5) 17.1 % (11.5-14.5) Platelet Count 173 x10^3/uL (140-400) 135 x10^3/uL (140-400) Neutrophils (%) (Auto) 79 % (31-73) 59 % (31-73) Lymphocytes (%) (Auto) 10 % (24-48) 20 % (24-48) Monocytes (%) (Auto) 10 % (0-9) 20 % (0-9) Eosinophils (%) (Auto) 1 % (0-3) 1 % (0-3) Basophils (%) (Auto) 0 % (0-3) 0 % (0-3) Neutrophils # (Auto) 4.4 x10^3/uL (1.8-7.7) 2.5 x10^3/uL (1.8-7.7) Lymphocytes # (Auto) 0.5 x10^3/uL (1.0-4.8) 0.8 x10^3/uL (1.0-4.8) Monocytes # (Auto) 0.6 x10^3/uL (0.0-1.1) 0.8 x10^3/uL (0.0-1.1) Eosinophils # (Auto) 0.0 x10^3/uL (0.0-0.7) 0.0 x10^3/uL (0.0-0.7) Basophils # (Auto) 0.0 x10^3/uL (0.0-0.2) 0.0 x10^3/uL (0.0-0.2) Sodium Level 136 mmol/L (136-145) 140 mmol/L (136-145) Potassium Level 3.3 mmol/L (3.5-5.1) 3.6 mmol/L (3.5-5.1) Chloride Level 102 mmol/L (98-107) 106 mmol/L (98-107) Carbon Dioxide Level 26 mmol/L (21-32) 28 mmol/L (21-32) Anion Gap 8 (6-14) 6 (6-14) Blood Urea Nitrogen 7 mg/dL (7-20) 6 mg/dL (7-20) Creatinine 0.9 mg/dL (0.6-1.0) 0.7 mg/dL (0.6-1.0) Estimated GFR (Cockcroft-Gault) 65.8 87.9 BUN/Creatinine Ratio 8 (6-20) 9 (6-20) Glucose Level 106 mg/dL (70-99) 103 mg/dL (70-99) Lactic Acid Level 1.5 mmol/L (0.4-2.0) Calcium Level 8.1 mg/dL (8.5-10.1) 7.3 mg/dL (8.5-10.1) Total Bilirubin 0.5 mg/dL (0.2-1.0) 0.6 mg/dL (0.2-1.0) Aspartate Amino Transf (AST/SGOT) 80 U/L (15-37) 117 U/L (15-37) Alanine Aminotransferase (ALT/SGPT) 62 U/L (14-59) 96 U/L (14-59) Alkaline Phosphatase 88 U/L (46-116) 89 U/L (46-116) Troponin I High Sensitivity 11 ng/L (4-50) Total Protein 7.5 g/dL (6.4-8.2) 6.8 g/dL (6.4-8.2) Albumin 3.1 g/dL (3.4-5.0) 2.7 g/dL (3.4-5.0) Albumin/Globulin Ratio 0.7 (1.0-1.7) 0.7 (1.0-1.7) Influenza Type A Antigen Negative (NEGATIVE) Influenza Type B Antigen Negative (NEGATIVE) SARS-CoV-2 RNA (YOLANDA) Negative (Negative) SARS-CoV-2 Antigen (Rapid) Negative (NEGATIVE) Urine Collection Type U cath Urine Color Yellow Urine Clarity Clear Urine pH 7.5 (<5.0-8.0) Urine Specific [place] 1.010 (1.000-1.030) Urine Protein Negative mg/dL (NEG-TRACE) Urine Glucose (UA) Negative mg/dL (NEG) Urine Ketones (Stick) Negative mg/dL (NEG) Urine Blood Negative (NEG) Urine Nitrite Negative (NEG) Urine Bilirubin Negative (NEG) Urine Urobilinogen Dipstick 0.2 mg/dL (0.2 mg/dL) Urine Leukocyte Esterase Negative (NEG) Urine RBC Occ /HPF (0-2) Urine WBC 0 /HPF (0-4) Urine Bacteria 0 /HPF (0-FEW) Procalcitonin < 0.10 ng/mL (0.00-0.10) Test 10/18/21 04:30 Creatinine 0.7 mg/dL (0.6-1.0) Estimated GFR (Cockcroft-Gault) 87.9 Vancomycin Level Trough 15.8 mcg/mL (10.0-20.0) Vancomycin Last Dose Date 10/17/21 Vancomycin Last Dose Time 1800 Laboratory Tests Test 10/17/21 09:15 10/18/21 04:30 White Blood Count 4.2 x10^3/uL (4.0-11.0) Red Blood Count 3.89 x10^6/uL (3.50-5.40) Hemoglobin 8.9 g/dL (12.0-15.5) Hematocrit 28.6 % (36.0-47.0) Mean Corpuscular Volume 74 fL (79-100) Mean Corpuscular Hemoglobin 23 pg (25-35) Mean Corpuscular Hemoglobin Concent 31 g/dL (31-37) Red Cell Distribution Width 17.1 % (11.5-14.5) Platelet Count 135 x10^3/uL (140-400) Neutrophils (%) (Auto) 59 % (31-73) Lymphocytes (%) (Auto) 20 % (24-48) Monocytes (%) (Auto) 20 % (0-9) Eosinophils (%) (Auto) 1 % (0-3) Basophils (%) (Auto) 0 % (0-3) Neutrophils # (Auto) 2.5 x10^3/uL (1.8-7.7) Lymphocytes # (Auto) 0.8 x10^3/uL (1.0-4.8) Monocytes # (Auto) 0.8 x10^3/uL (0.0-1.1) Eosinophils # (Auto) 0.0 x10^3/uL (0.0-0.7) Basophils # (Auto) 0.0 x10^3/uL (0.0-0.2) Sodium Level 140 mmol/L (136-145) Potassium Level 3.6 mmol/L (3.5-5.1) Chloride Level 106 mmol/L (98-107) Carbon Dioxide Level 28 mmol/L (21-32) Anion Gap 6 (6-14) Blood Urea Nitrogen 6 mg/dL (7-20) Creatinine 0.7 mg/dL (0.6-1.0) 0.7 mg/dL (0.6-1.0) Estimated GFR (Cockcroft-Gault) 87.9 87.9 BUN/Creatinine Ratio 9 (6-20) Glucose Level 103 mg/dL (70-99) Calcium Level 7.3 mg/dL (8.5-10.1) Total Bilirubin 0.6 mg/dL (0.2-1.0) Aspartate Amino Transf (AST/SGOT) 117 U/L (15-37) Alanine Aminotransferase (ALT/SGPT) 96 U/L (14-59) Alkaline Phosphatase 89 U/L (46-116) Total Protein 6.8 g/dL (6.4-8.2) Albumin 2.7 g/dL (3.4-5.0) Albumin/Globulin Ratio 0.7 (1.0-1.7) Procalcitonin < 0.10 ng/mL (0.00-0.10) Vancomycin Level Trough 15.8 mcg/mL (10.0-20.0) Vancomycin Last Dose Date 10/17/21 Vancomycin Last Dose Time 1800 Medications Active Scripts Medications Dose Route/Sig Max Daily Dose Days Date Category Dose Instructions D3-50 (Cholecalciferol (Vitamin D3)) 50,000 Unit Capsule 1 Cap PO QFR 28 10/16/21 Reported Cetirizine Hcl 10 Mg Tablet 1 Tab PO DAILY 10/16/21 Reported Calcium (Calcium Carbonate) 500 Mg Tablet 1 Tab PO QID 30 10/16/21 Reported Fexofenadine Hcl 180 Mg Tablet 1 Tab PO DAILY 10/16/21 Reported Benzonatate 100 Mg Capsule 1 Cap PO TID 10/16/21 Reported Acetaminophen 500 Mg Tablet 2 Tab PO BID PRN 15 10/16/21 Reported Omeprazole 40 Mg Capsule.dr 1 Cap PO DAILY 10/16/21 Reported Oxycodone Hcl Immed.release (Oxycodone Hcl) 5 Mg Tablet 5 Mg PO PRN Q4HRS PRN 10/16/21 Reported Miralax (Polyethylene Glycol 3350) 119 Gm Powder 17 Gm PO DAILY 06/22/21 Reported dissolve in water Xgeva (Denosumab) 120 Mg/1.7 Ml Vial 120 Mg SQ Q4WK 06/22/21 Reported Cetirizine Hcl 10 Mg Tablet 10 Mg PO DAILY 06/22/21 Reported Senna (Sennosides) 8.8 Mg/5 Ml Syrup 8.8 Mg PO DAILY 06/22/21 Reported Ondansetron Odt (Ondansetron) 4 Mg Tab.rapdis 4 Mg PO BID PRN 06/22/21 Reported Zoloft (Sertraline Hcl) 25 Mg Tablet 25 Mg PO DAILY 06/22/21 Reported Pradaxa (Dabigatran Etexilate Mesylate) 150 Mg Capsule 150 Mg PO BID 06/22/21 Reported Tagrisso (Osimertinib Mesylate) 80 Mg Tablet 80 Mg PO DAILY 06/22/[address] of chest Stable appearance of right lung mass. Mild atelectasis in the lungs. No other significant new findings. Impression . IMPRESSION: 1. Fever, suspect secondary to pneumonia, no SARS-CoV-2. 2. Metastatic lung cancer, status post radiation with repeat CT chest back in 03/2021 revealing no evidence of new disease. She had a continued elongated mass in the right middle lobe, not changed from previous exam of 01/05. 3. Sclerotic lesion in the right scapula related to lung carcinoma. 4. Possible obstructive pneumonia. Plan . 10/18 PLAN: 1. Continue empiric antibiotics. deescalate 2. reviewed CT chest. Stable appearance of right lung mass. Mild atelectasis in the lungs. No other significant new findings. will start IS 3. SARS-CoV-2 nucleic amplification test. negative 4. DVT prophylaxis is on pradaxa 5. cont BD discussed w rn PLAN: 1. Continue empiric antibiotics. 2. will review CT chest. 3. SARS-CoV-2 nucleic amplification test. negative 4. DVT prophylaxis is on pradaxa 5. start BD discussed w pt DANE ELIZABETH MD Oct 18, 2021 05:54
[2021-10-18] MEDS: VANCOMYCIN PER PHARMACY MC PRN (06:26)
--- NOTE | 2021-10-18 06:27 | NUR ---
Pharmacy Vancomycin Dosing Note S:Consulted to monitor and dose vancomycin started 10/16/21. O:NOEL TILLMAN is a 50 year old F with Pneumonia . Height: 5 feet, 3 inches Weight: 60.9 kg [place] Body Weight: 56.90 Adjusted Body Weight: 58.50 Dosing Weight: Actual Other Antibiotics: DOXYCYCLINE ZOSYN LABS: Last BUN: 6 Last Creatinine: 0.7 Creatinine Clearance: 83 mL/min Last WBC: 4.2 Last Procalcitonin: Tmax (past 24 hours): 98 Microbiology: - I/O: 1710/- Drug Levels: Last Trough level: 15.8 on 10/18/21 at 0530 Last dose given 10/17/21 at 0803 Vancomycin Dosing: Loading Dose: 1500 mg x1 Dosing Weight: Actual Target Trough: 15-20 A: Based on: TROUGH P: 1. Continue Vancomycin 1000 mg IV q12h 2. Follow up Trough level IF NEEDED 3. Pharmacy will continue to monitor, follow and adjust therapy as needed. JESSICA GRANADOS [facility], 10/18/21 0602
[2021-10-18 07:00] VITALS: BP 117/59
[2021-10-18] MEDS: VANCOMYCIN 1 GM in IV NORMAL SALINE 250ML 250 ML IV SCH ×2 (07:03→19:12)
[2021-10-18] MEDS: IPRATRPIUM/ALBUTEROL 0.5/2.5MG 3 ML NEBU. NEB SCH ×4 (08:33→20:33)
[2021-10-18 08:36] LABS: CALCIUM 7.6 mg/dL (8.5-10.1); CREATININE 0.7 mg/dL (0.6-1.0); GFR 87.9; POTASSIUM 3.7 mmol/L (3.5-5.1)
[2021-10-18] MEDS: DOXYCYCLINE HYCLATE 100 MG TABLET PO SCH ×2 (08:46→22:19)
[2021-10-18] MEDS: BENZONATATE 100 MG CAPSULE. PO SCH ×3 (08:46→22:19)
[2021-10-18] MEDS: POLYETHYLENE GLYCOL 3350 17 GM PACKET. PO SCH (08:46)
[2021-10-18] MEDS: CETIRIZINE HCL 10 MG TABLET. PO SCH (08:46)
[2021-10-18] MEDS: DABIGATRAN ETEXILATE 150 MG CAPSULE. PO SCH (08:46)
[2021-10-18] MEDS: POTASSIUM CHLORIDE 20 MEQ TABLET.ER. PO SCH (08:46)
[2021-10-18] MEDS: SENNOSIDES 8.6 MG TABLET PO SCH (08:46)
[2021-10-18] MEDS: SERTRALINE 25 MG TABLET. PO SCH (08:46)
[2021-10-18] MEDS: PANTOPRAZOLE 40 MG TABLET.DR. PO SCH (08:46)
[2021-10-18] MEDS: CALCIUM CARBONATE 500 MG TABLET PO SCH ×4 (08:46→22:19)
[2021-10-18] MEDS ORDERED: FLU VACC QUAD 21-22 (6MOS+) PF 0.5 ML SYRINGE. VAX IM ONE (09:00)
[2021-10-18] MEDS: OSIMERTINIB MESYLATE 80 MG PO SCH (10:15)
[2021-10-18] MEDS: oxyCODONE IR 5 MG TABLET PO PRN (10:15)
[2021-10-18 11:00] VITALS: BP 118/69
--- NOTE | 2021-10-18 12:00 | PDOC ---
[employer] PROGRESS NOTE Date of Service DOS: DATE: 10/18/21 TIME: 11:59 Chief Complaint Chief Complaint sepsis pneumonia hypokalemia hx of lung cancer with mets to bone s/p radiation History of Present Illness History of Present Illness 10/18/2021 Patient seen and examined Discussed with RN Chart reviewed 10/17/2021 Patient seen and examined Chart reviewed Discussed with RN Patient sitting up in bed. Seems to be in pain while breathing, concerned for pleurisy. Has Roxicodone ordered for pain control She is satting well on room air Attempted to call the patient's son, Riley, while in the room but he did not answer Vitals/I&O Vitals/I&O: Vital Signs Date Time Temp Pulse Resp B/P (MAP) Pulse Ox O2 Delivery O2 Flow Rate FiO2 10/18/21 10:15 Room Air 10/18/21 08:33 100 10/18/21 07:00 99.2 67 16 117/59 (78) 99.2 I & O 10/17/21 10/17/21 10/18/21 15:00 23:00 07:00 Intake Total 1300 ml 1050 ml 0 ml Balance 1300 ml 1050 ml 0 ml Physical Exam General: Alert, Cooperative, mild distress Heart: Regular rate Lungs: Other (b lat diminished bs) Abdomen: Soft, No tenderness Extremities: No edema Skin: No rashes, No significant lesion Labs Labs: Laboratory Tests Test 10/18/21 04:30 Sodium Level 142 mmol/L (136-145) Potassium Level 3.7 mmol/L (3.5-5.1) Chloride Level 106 mmol/L (98-107) Carbon Dioxide Level 26 mmol/L (21-32) Anion Gap 10 (6-14) Blood Urea Nitrogen 5 mg/dL (7-20) Creatinine 0.7 mg/dL (0.6-1.0) Estimated GFR (Cockcroft-Gault) 87.9 Glucose Level 114 mg/dL (70-99) Calcium Level 7.6 mg/dL (8.5-10.1) Vancomycin Level Trough 15.8 mcg/mL (10.0-20.0) Vancomycin Last Dose Date 10/17/21 Vancomycin Last Dose Time 1800 Assessment and Plan Assessmemt and Plan Problems Medical Problems: (1) Atypical pneumonia Status: Acute (2) Pain of metastatic malignancy Status: Acute sepsis pneumonia hypokalemia pleurisy 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 intake Incentive spirometer DVT prophylaxis Appreciate subspecialist input Full code Comment Review of Relevant I have reviewed the following items lilia (where applicable) has been applied. Medications: Current Medications Medications (Trade) Dose Ordered Sig/Charley Route PRN Reason Start Time Stop Time Status Last Admin Dose Admin Vancomycin HCl (Vancomycin Trough Level) 1 each 1X ONCE MC 10/18/21 05:30 10/18/21 05:31 DC 10/18/21 08:47 Hydromorphone HCl (Dilaudid) 2 mg PRN Q2HRS PRN IVP SEVERE PAIN 7-10 10/17/21 21:15 10/17/21 21:31 Diphenhydramine HCl (Benadryl) 25 mg PRN Q6HRS PRN PO ITCHING 10/18/21 00:15 10/18/21 00:19 Doxycycline Hyclate (Vibra-Tab) 100 mg BID PO 10/18/21 09:00 10/18/21 08:46 Justifications for Admission Other Justification GEOVANY DAVE III DO Oct 18, 2021 12:00
[2021-10-18] MEDS: POTASSIUM CL 20MEQ D5-0.45NACL 1,000 ML IV SCH ×2 (12:49→18:24)
[2021-10-18] MEDS: ONDANSETRON PF 4 MG/2 ML VIAL. IVP PRN (13:52)
[2021-10-18] MEDS: MORPHINE SULFATE 2 MG/ML INJ. IVP PRN (13:52)
[2021-10-18 15:00] VITALS: BP 119/63
--- NOTE | 2021-10-18 15:10 | RAD ---
CT HEAD/BRAIN WO History: Reason: headaches radiation to neck / Spl. Instructions: / History: Comparison: June 21, 2021 Technique: Noncontrast CT imaging was performed of the head. Exposure: One or more of the following individualized dose reduction techniques were utilized for thi s examination: 1. Automated exposure control 2. Adjustment of the mA and/or kV according to patient size 3. Use of iterative reconstruction technique. Findings: No intracranial hemorrhage. No mass effect. No hydrocephalus. Extra-axial spaces are unremarkable. Imaged orbits are unremarkable. Imaged paranasal sinuses and mastoid air cells are clear. No acute ca lvarial fracture. Impression: 1. No acute intracranial abnormality. Electronically signed by: Jona Matson DO (10/18/2021 3:07 PM) [facility]
[2021-10-18 19:00] VITALS: BP 107/63
[2021-10-18 23:16] VITALS: BP 97/54
[2021-10-19 03:09] VITALS: BP 101/63
[2021-10-19] MEDS: PIPERACILLIN/TAZOBACTAM 3.375 GM in IV NORMAL SALINE 50ML 50 ML IV SCH ×4 (05:23→23:29)
[2021-10-19] MEDS: VANCOMYCIN 1 GM in IV NORMAL SALINE 250ML 250 ML IV SCH ×2 (06:11→20:55)
[2021-10-19 06:12] LABS: BASO % 0 % (0-3); EOS # 0.1 x10^3/uL (0.0-0.7); EOS % 2 % (0-3); HEMATOCRIT 26.1 % (36.0-47.0); HEMOGLOBIN 8.1 g/dL (12.0-15.5); LYMPH # 0.8 x10^3/uL (1.0-4.8); LYMPH % 18 % (24-48); MEAN CORPUSCULAR HEMOGLOBIN 23 pg (25-35); MEAN CORPUSCULAR HGB CONC 31 g/dL (31-37); MEAN CORPUSCULAR VOLUME 74 fL (79-100); MONO # 0.5 x10^3/uL (0.0-1.1); MONO % 11 % (0-9); NEUT # 3.1 x10^3/uL (1.8-7.7); NEUT % 68 % (31-73); PLATELET COUNT 137 x10^3/uL (140-400); RED BLOOD COUNT 3.52 x10^6/uL (3.50-5.40); RED CELL DISTRIBUTION WIDTH 17.9 % (11.5-14.5); WHITE BLOOD COUNT 4.5 x10^3/uL (4.0-11.0)
[2021-10-19] MEDS: POTASSIUM CL 20MEQ D5-0.45NACL 1,000 ML IV SCH ×2 (06:13→17:04)
[2021-10-19 07:00] VITALS: BP 106/66
[2021-10-19] MEDS: oxyCODONE IR 5 MG TABLET PO PRN ×2 (08:42→19:41)
[2021-10-19] MEDS: ACETAMINOPHEN 500 MG TABLET PO PRN ×2 (08:43→19:41)
[2021-10-19] MEDS: CALCIUM CARBONATE 500 MG TABLET PO SCH ×4 (08:43→21:46)
[2021-10-19] MEDS: BENZONATATE 100 MG CAPSULE. PO SCH ×3 (08:43→21:46)
[2021-10-19] MEDS: DABIGATRAN ETEXILATE 150 MG CAPSULE. PO SCH (08:43)
[2021-10-19] MEDS: POTASSIUM CHLORIDE 20 MEQ TABLET.ER. PO SCH (08:44)
[2021-10-19] MEDS: CETIRIZINE HCL 10 MG TABLET. PO SCH (08:44)
[2021-10-19] MEDS: DOXYCYCLINE HYCLATE 100 MG TABLET PO SCH ×2 (08:44→21:47)
[2021-10-19] MEDS: PANTOPRAZOLE 40 MG TABLET.DR. PO SCH (08:44)
[2021-10-19] MEDS: SERTRALINE 25 MG TABLET. PO SCH (08:44)
[2021-10-19] MEDS: SENNOSIDES 8.6 MG TABLET PO SCH (08:45)
[2021-10-19] MEDS: POLYETHYLENE GLYCOL 3350 17 GM PACKET. PO SCH (08:45)
[2021-10-19] MEDS: IPRATRPIUM/ALBUTEROL 0.5/2.5MG 3 ML NEBU. NEB SCH ×4 (09:24→21:15)
[2021-10-19 11:00] VITALS: BP 127/66
[2021-10-19] MEDS: OSIMERTINIB MESYLATE 80 MG PO SCH (11:39)
--- NOTE | 2021-10-19 12:04 | PDOC ---
[employer] PROGRESS NOTE Date of Service DOS: DATE: 10/19/21 TIME: 12:03 Chief Complaint Chief Complaint sepsis pneumonia hypokalemia hx of lung cancer with mets to bone s/p radiation History of Present Illness History of Present Illness 10/19/2021 Patient seen and examined Discussed with RN Chart reviewed Patient on FaceTime with her daughter when we entered the room. We discussed the plan with the daughter. Patient's head CT was unremarkable. Vitals/I&O Vitals/I&O: Vital Signs Date Time Temp Pulse Resp B/P (MAP) Pulse Ox O2 Delivery O2 Flow Rate FiO2 10/19/21 11:00 98.1 70 18 127/66 (86) 94 Room Air 98.1 I & O 10/18/21 10/18/21 10/19/21 15:00 23:00 07:00 Intake Total 1050 ml 50 ml Balance 1050 ml 50 ml Physical Exam General: Alert, Cooperative, mild distress Heart: Regular rate Lungs: Other (b lat diminished bs) Abdomen: Soft, No tenderness Extremities: No edema Skin: No rashes, No significant lesion Labs Labs: Laboratory Tests Test 10/19/21 05:15 White Blood Count 4.5 x10^3/uL (4.0-11.0) Red Blood Count 3.52 x10^6/uL (3.50-5.40) Hemoglobin 8.1 g/dL (12.0-15.5) Hematocrit 26.1 % (36.0-47.0) Mean Corpuscular Volume 74 fL (79-100) Mean Corpuscular Hemoglobin 23 pg (25-35) Mean Corpuscular Hemoglobin Concent 31 g/dL (31-37) Red Cell Distribution Width 17.9 % (11.5-14.5) Platelet Count 137 x10^3/uL (140-400) Neutrophils (%) (Auto) 68 % (31-73) Lymphocytes (%) (Auto) 18 % (24-48) Monocytes (%) (Auto) 11 % (0-9) Eosinophils (%) (Auto) 2 % (0-3) Basophils (%) (Auto) 0 % (0-3) Neutrophils # (Auto) 3.1 x10^3/uL (1.8-7.7) Lymphocytes # (Auto) 0.8 x10^3/uL (1.0-4.8) Monocytes # (Auto) 0.5 x10^3/uL (0.0-1.1) Eosinophils # (Auto) 0.1 x10^3/uL (0.0-0.7) Basophils # (Auto) 0.0 x10^3/uL (0.0-0.2) Assessment and Plan Assessmemt and Plan Problems Medical Problems: (1) Atypical pneumonia Status: Acute (2) Pain of metastatic malignancy Status: Acute sepsis pneumonia hypokalemia pleurisy 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 intake Incentive spirometer DVT prophylaxis Appreciate subspecialist input Full code Probable discharge tomorrow Comment Review of Relevant I have reviewed the following items lilia (where applicable) has been applied. Justifications for Admission Other Justification GEOVANY DAVE III DO Oct 19, 2021 12:04
[2021-10-19] MEDS: VANCOMYCIN PER PHARMACY MC PRN (12:34)
--- NOTE | 2021-10-19 14:25 | NUR ---
SW following. Discussed with RN, pt from home with family, room air, regular diet, COVID-19 and Flu negative. Oncology and Pulmonology following. RN advised no SW needs at this time. SW will continue to follow.
[2021-10-19 15:00] VITALS: BP 143/71
[2021-10-19 19:00] VITALS: BP 137/71
[2021-10-19] MEDS: MORPHINE SULFATE 2 MG/ML INJ. IVP PRN (21:52)
[2021-10-19 23:09] VITALS: BP 142/81
[2021-10-20 03:26] VITALS: BP 116/61
[2021-10-20] MEDS: IPRATRPIUM/ALBUTEROL 0.5/2.5MG 3 ML NEBU. NEB SCH ×2 (06:12→11:55)
[2021-10-20] MEDS: PIPERACILLIN/TAZOBACTAM 3.375 GM in IV NORMAL SALINE 50ML 50 ML IV SCH ×2 (06:16→12:00)
[2021-10-20] MEDS: VANCOMYCIN 1 GM in IV NORMAL SALINE 250ML 250 ML IV SCH (06:40)
[2021-10-20 07:00] VITALS: BP 132/70
[2021-10-20] MEDS: POTASSIUM CL 20MEQ D5-0.45NACL 1,000 ML IV SCH (07:00)
[2021-10-20 07:29] LABS: BASO % 0 % (0-3); EOS # 0.2 x10^3/uL (0.0-0.7); EOS % 5 % (0-3); HEMATOCRIT 28.2 % (36.0-47.0); HEMOGLOBIN 8.9 g/dL (12.0-15.5); LYMPH # 0.8 x10^3/uL (1.0-4.8); LYMPH % 22 % (24-48); MEAN CORPUSCULAR HEMOGLOBIN 24 pg (25-35); MEAN CORPUSCULAR HGB CONC 32 g/dL (31-37); MEAN CORPUSCULAR VOLUME 75 fL (79-100); MONO # 0.4 x10^3/uL (0.0-1.1); MONO % 11 % (0-9); NEUT # 2.3 x10^3/uL (1.8-7.7); NEUT % 62 % (31-73); PLATELET COUNT 157 x10^3/uL (140-400); RED BLOOD COUNT 3.75 x10^6/uL (3.50-5.40); RED CELL DISTRIBUTION WIDTH 18.1 % (11.5-14.5); WHITE BLOOD COUNT 3.7 x10^3/uL (4.0-11.0)
[2021-10-20 07:46] LABS: CREATININE 0.8 mg/dL (0.6-1.0); GFR 75.3
[2021-10-20] MEDS: POLYETHYLENE GLYCOL 3350 17 GM PACKET. PO SCH (09:00)
[2021-10-20] MEDS: SENNOSIDES 8.6 MG TABLET PO SCH (09:00)
--- NOTE | 2021-10-20 09:54 | PDOC ---
PULMONARY PROGRESS NOTES DATE: 10/20/21 TIME: 09:49 Subjective Denies any shortness of breath. Vitals Vital Signs Date Time Temp Pulse Resp B/P (MAP) Pulse Ox O2 Delivery O2 Flow Rate FiO2 10/20/21 07:00 98.0 69 18 132/70 (90) 96 Room Air 98.0 ROS: No Nausea, No Chest Pain General: Alert, No acute distress HEENT: Other (nc at ) Lungs: Other (b lat diminished bs) Cardiovascular: S1, S2 Abdomen: Soft Neuro Exam: Alert Skin: Warm Labs Laboratory Tests Test 10/19/21 05:15 10/20/21 07:05 White Blood Count 4.5 x10^3/uL (4.0-11.0) 3.7 x10^3/uL (4.0-11.0) Red Blood Count 3.52 x10^6/uL (3.50-5.40) 3.75 x10^6/uL (3.50-5.40) Hemoglobin 8.1 g/dL (12.0-15.5) 8.9 g/dL (12.0-15.5) Hematocrit 26.1 % (36.0-47.0) 28.2 % (36.0-47.0) Mean Corpuscular Volume 74 fL (79-100) 75 fL (79-100) Mean Corpuscular Hemoglobin 23 pg (25-35) 24 pg (25-35) Mean Corpuscular Hemoglobin Concent 31 g/dL (31-37) 32 g/dL (31-37) Red Cell Distribution Width 17.9 % (11.5-14.5) 18.1 % (11.5-14.5) Platelet Count 137 x10^3/uL (140-400) 157 x10^3/uL (140-400) Neutrophils (%) (Auto) 68 % (31-73) 62 % (31-73) Lymphocytes (%) (Auto) 18 % (24-48) 22 % (24-48) Monocytes (%) (Auto) 11 % (0-9) 11 % (0-9) Eosinophils (%) (Auto) 2 % (0-3) 5 % (0-3) Basophils (%) (Auto) 0 % (0-3) 0 % (0-3) Neutrophils # (Auto) 3.1 x10^3/uL (1.8-7.7) 2.3 x10^3/uL (1.8-7.7) Lymphocytes # (Auto) 0.8 x10^3/uL (1.0-4.8) 0.8 x10^3/uL (1.0-4.8) Monocytes # (Auto) 0.5 x10^3/uL (0.0-1.1) 0.4 x10^3/uL (0.0-1.1) Eosinophils # (Auto) 0.1 x10^3/uL (0.0-0.7) 0.2 x10^3/uL (0.0-0.7) Basophils # (Auto) 0.0 x10^3/uL (0.0-0.2) 0.0 x10^3/uL (0.0-0.2) Creatinine 0.8 mg/dL (0.6-1.0) Estimated GFR (Cockcroft-Gault) 75.3 Laboratory Tests Test 10/20/21 07:05 White Blood Count 3.7 x10^3/uL (4.0-11.0) Red Blood Count 3.75 x10^6/uL (3.50-5.40) Hemoglobin 8.9 g/dL (12.0-15.5) Hematocrit 28.2 % (36.0-47.0) Mean Corpuscular Volume 75 fL (79-100) Mean Corpuscular Hemoglobin 24 pg (25-35) Mean Corpuscular Hemoglobin Concent 32 g/dL (31-37) Red Cell Distribution Width 18.1 % (11.5-14.5) Platelet Count 157 x10^3/uL (140-400) Neutrophils (%) (Auto) 62 % (31-73) Lymphocytes (%) (Auto) 22 % (24-48) Monocytes (%) (Auto) 11 % (0-9) Eosinophils (%) (Auto) 5 % (0-3) Basophils (%) (Auto) 0 % (0-3) Neutrophils # (Auto) 2.3 x10^3/uL (1.8-7.7) Lymphocytes # (Auto) 0.8 x10^3/uL (1.0-4.8) Monocytes # (Auto) 0.4 x10^3/uL (0.0-1.1) Eosinophils # (Auto) 0.2 x10^3/uL (0.0-0.7) Basophils # (Auto) 0.0 x10^3/uL (0.0-0.2) Creatinine 0.8 mg/dL (0.6-1.0) Estimated GFR (Cockcroft-Gault) 75.3 Medications Active Scripts Medications Dose Route/Sig Max Daily Dose Days Date Category Dose Instructions D3-50 (Cholecalciferol (Vitamin D3)) 50,000 Unit Capsule 1 Cap PO QFR 28 10/16/21 Reported Cetirizine Hcl 10 Mg Tablet 1 Tab PO DAILY 10/16/21 Reported Calcium (Calcium Carbonate) 500 Mg Tablet 1 Tab PO QID 30 10/16/21 Reported Fexofenadine Hcl 180 Mg Tablet 1 Tab PO DAILY 10/16/21 Reported Benzonatate 100 Mg Capsule 1 Cap PO TID 10/16/21 Reported Acetaminophen 500 Mg Tablet 2 Tab PO BID PRN 15 10/16/21 Reported Omeprazole 40 Mg Capsule.dr 1 Cap PO DAILY 10/16/21 Reported Oxycodone Hcl Immed.release (Oxycodone Hcl) 5 Mg Tablet 5 Mg PO PRN Q4HRS PRN 10/16/21 Reported Miralax (Polyethylene Glycol 3350) 119 Gm Powder 17 Gm PO DAILY 06/22/21 Reported dissolve in water Xgeva (Denosumab) 120 Mg/1.7 Ml Vial 120 Mg SQ Q4WK 06/22/21 Reported Cetirizine Hcl 10 Mg Tablet 10 Mg PO DAILY 06/22/21 Reported Senna (Sennosides) 8.8 Mg/5 Ml Syrup 8.8 Mg PO DAILY 06/22/21 Reported Ondansetron Odt (Ondansetron) 4 Mg Tab.rapdis 4 Mg PO BID PRN 06/22/21 Reported Zoloft (Sertraline Hcl) 25 Mg Tablet 25 Mg PO DAILY 06/22/21 Reported Pradaxa (Dabigatran Etexilate Mesylate) 150 Mg Capsule 150 Mg PO BID 06/22/21 Reported Tagrisso (Osimertinib Mesylate) 80 Mg Tablet 80 Mg PO DAILY 06/22/[address] of chest Stable appearance of right lung mass. Mild atelectasis in the lungs. No other significant new findings. Impression . IMPRESSION: 1. Fever, suspect secondary to pneumonia, no SARS-CoV-2. Fever is resolved. 2. Metastatic lung cancer, status post radiation with repeat CT chest back in 03/2021 revealing no evidence of new disease. She had a continued elongated mass in the right middle lobe, not changed from previous exam of 01/05. 3. Sclerotic lesion in the right scapula related to lung carcinoma. 4. No significant hypoxia. Plan . 10/20 1. Continue empiric antibiotics. deescalate. Currently on vancomycin and Zosyn and oral doxycycline. 2. reviewed CT chest. Stable appearance of right lung mass. Mild atelectasis in the lungs. No other significant new findings. 3. SARS-CoV-2 nucleic amplification test. negative 4. DVT prophylaxis is on pradaxa 5. cont BD discussed w rn. No further fever, no significant leukocytosis. Consider discharge planning. 10/18 PLAN: 1. Continue empiric antibiotics. deescalate 2. reviewed CT chest. Stable appearance of right lung mass. Mild atelectasis in the lungs. No other significant new findings. will start IS 3. SARS-CoV-2 nucleic amplification test. negative 4. DVT prophylaxis is on pradaxa 5. cont BD discussed w rn PLAN: 1. Continue empiric antibiotics. 2. will review CT chest. 3. SARS-CoV-2 nucleic amplification test. negative 4. DVT prophylaxis is on pradaxa 5. start BD discussed w pt DEMI RICHARDS MD Oct 20, 2021 09:54
[2021-10-20] MEDS: CETIRIZINE HCL 10 MG TABLET. PO SCH (10:39)
[2021-10-20] MEDS: BENZONATATE 100 MG CAPSULE. PO SCH ×2 (10:40→14:34)
[2021-10-20] MEDS: DABIGATRAN ETEXILATE 150 MG CAPSULE. PO SCH (10:40)
[2021-10-20] MEDS: POTASSIUM CHLORIDE 20 MEQ TABLET.ER. PO SCH (10:40)
[2021-10-20] MEDS: PANTOPRAZOLE 40 MG TABLET.DR. PO SCH (10:40)
[2021-10-20] MEDS: DOXYCYCLINE HYCLATE 100 MG TABLET PO SCH (10:41)
[2021-10-20] MEDS: SERTRALINE 25 MG TABLET. PO SCH (10:41)
[2021-10-20] MEDS: CALCIUM CARBONATE 500 MG TABLET PO SCH ×2 (10:41→14:34)
[2021-10-20] MEDS: OSIMERTINIB MESYLATE 80 MG PO SCH (10:42)
[2021-10-20 11:00] VITALS: BP 137/77
[2021-10-20] MEDS ORDERED: POTA20TA4 PO (12:44)
[2021-10-20] MEDS ORDERED: DOXY100T PO (12:44)
--- NOTE | 2021-10-20 12:45 | SNU/HH DC ---
DISCHARGE WITH HOME HEALTH DISCHARGE INFORMATION: Final Diagnosis: Problems Medical Problems: (1) Atypical pneumonia Status: Acute (2) Pain of metastatic malignancy Status: Acute Condition on Discharge: Stable CODE STATUS: Code Status: Full HOME HEALTH: Face to Face: I certify this patient is under my care and that I, or a nurse practitioner or physician's permit review assistant working with me, had a face to face encounter that meets the physician face to face encounter requirements with this patient on []. Medical Complications: Pneumonia Correction For: Assess & Educate Safety RN For Eval/Treatment: Yes Physical Therapy For: Evalulation/Treatment Occupational Therapy For: Evaluation/Treatment Home Health Aide For: Self-care PROJECT TECHNICIAN For: Community Resources Pt Meets Homebound Status: Unsteady balance w/ amb, POST DISCHARGE ORDERS: DIET AFTER DISCHARGE: Cardiac CERTIFICATION STATEMENT: Certification Statement: Certification Statement: Based on the above finding, I certify that this patient is confined to the home and needs intermittent mcfp care, physical therapy and/or speech therapy, or continues to need occupational therapy.~ This patient is under my care, and I have initiated the establishment of the plan of care.~ This patient will be followed by myself or a community physician who will periodically review the plan of care. Home Meds Active Scripts Potassium Chloride (POTASSIUM CHLORIDE ) 20 Meq Tablet.er, 20 MEQ PO DAILYWBKFT for . for 30 Days, #30 TAB.SR Prov:GEORGETTELE,NIAL K III DO 10/20/21 Doxycycline Hyclate (DOXYCYCLINE HYCLATE) 100 Mg Tablet, 100 MG PO BID for . for 7 Days, #14 TAB Prov:GEORGETTELE,NIAL K III DO 10/20/21 Reported Medications Cholecalciferol (Vitamin D3) (D3-50) 50,000 Unit Capsule, 1 CAP PO QFR for supplement for 28 Days, #4 CAP 0 Refills 10/16/21 Cetirizine Hcl (CETIRIZINE HCL) 10 Mg Tablet, 1 TAB PO DAILY for allergies, #30 TAB 5 Refills 10/16/21 Calcium Carbonate (CALCIUM) 500 Mg Tablet, 1 TAB PO QID for supplement for 30 Days, #120 TAB 0 Refills 10/16/21 Fexofenadine Hcl (FEXOFENADINE HCL) 180 Mg Tablet, 1 TAB PO DAILY for unknown, #30 TAB 5 Refills 10/16/21 Benzonatate (BENZONATATE) 100 Mg Capsule, 1 CAP PO TID for cough, #30 CAP 10/16/21 Acetaminophen (ACETAMINOPHEN) 500 Mg Tablet, 2 TAB PO BID PRN for pain or fever for 15 Days, #60 TAB 0 Refills 10/16/21 Omeprazole (OMEPRAZOLE) 40 Mg Capsule.dr, 1 CAP PO DAILY for GERD, #30 CAP 3 Refills 10/16/21 Oxycodone Hcl (OXYCODONE HCL IMMED.RELEASE ) 5 Mg Tablet, 5 MG PO PRN Q4HRS PRN for PAIN, TAB 0 Refills 10/16/21 Polyethylene Glycol 3350 (MIRALAX) 119 Gm Powder, 17 GM PO DAILY for constipation, #527 GM 0 Refills dissolve in water 06/22/21 Denosumab (XGEVA) 120 Mg/1.7 Ml Vial, 120 MG SQ Q4WK for bones, EACH 06/22/21 Cetirizine Hcl (CETIRIZINE HCL) 10 Mg Tablet, 10 MG PO DAILY for allergies, TAB 06/22/21 Sennosides (SENNA) 8.8 Mg/5 Ml Syrup, 8.8 MG PO DAILY for constipation, MISC 06/22/21 Ondansetron (ONDANSETRON ODT) 4 Mg Tab.rapdis, 4 MG PO BID PRN for NAUSEA/VOMITING, TAB 06/22/21 Sertraline Hcl (ZOLOFT) 25 Mg Tablet, 25 MG PO DAILY for ANTI-DEPRESSANT, TAB 0 Refills 06/22/21 Dabigatran Etexilate Mesylate (PRADAXA) 150 Mg Capsule, 150 MG PO BID for blood thinner, CAP 06/22/21 Osimertinib Mesylate (Tagrisso) 80 Mg Tablet, 80 MG PO DAILY for CA, TAB 06/22/21 GEOVANY DAVE III DO Oct 20, 2021 12:45
--- NOTE | 2021-10-20 12:59 | PDOC2 ---
CONSULT Date of Consult Date of Consult DATE: 10/20/21 TIME: 12:48 Reason for Consult Reason for Consult: Metastatic lung cancer on osimertinib Referring Physician Referring Physician: Dr. Torres Identification/Chief Complaint Chief Complaint Shortness of breath Source Source: Chart review, Patient History of Present Illness Reason for Visit: Bharati Brady is a 50-year-old Occitan speaking female who has been admitted to the hospital after presenting with fever and shortness of breath. Patient follows with me in the office for stage IV lung adenocarcinoma with EGFR T790 M mutation. She has been receiving palliative systemic therapy with osimertinib with most recent CT scans showing disease control. She received CT of the chest for further evaluation of fever and shortness of breath which showed stable lung cancer and no additional evidence of pneumonia. She is started on empiric antibiotic therapy and has not had any recurrent fevers. CT head was also obtained due to fever and headache and did not show any abnormalities. Medical oncology consultation has been requested to the patient's cancer diagnosis and ongoing therapy with osimertinib Past Medical History Pulmonary: No pertinent hx GI: No pertinent hx Heme/Onc: No pertinent hx Hepatobiliary: No pertinent hx Psych: No pertinent hx Musculoskeletal: low back pain Rheumatologic: No pertinent hx Infectious disease: No pertinent hx ENT: Sincusitis Dermatology: No pertinent hx Past Surgical History Past Surgical History: No pertinent history Family History Family History: No Significant Social History No ALCOHOL: none Drugs: None Current Problem List Problem List Problems Medical Problems: (1) Atypical pneumonia Status: Acute (2) Pain of metastatic malignancy Status: Acute Current Medications Current Medications Current Medications Sodium Chloride 1,000 ml @ 1,000 mls/hr 1X ONCE IV Last administered on 10/16/21at 07:52; Start 10/16/21 at 07:30; Stop 10/16/21 at 08:29; Status DC Piperacillin Sod/ Tazobactam Sod 4.5 gm/Sodium Chloride 100 ml @ 200 mls/hr 1X ONCE IV Last administered on 10/16/21at 07:52; Start 10/16/21 at 07:30; Stop 10/16/21 at 07:59; Status DC Morphine Sulfate (Morphine Sulfate) 5 mg 1X ONCE IVP Last administered on 10/16/21at 08:10; Start 10/16/21 at 08:00; Stop 10/16/21 at 08:07; Status DC Morphine Sulfate (Morphine Sulfate) 10 mg STK-MED ONCE .ROUTE ; Start 10/16/21 at 08:08; Stop 10/16/21 at 08:08; Status DC Doxycycline Hyclate (Vibra-Tab) 100 mg 1X ONCE PO Last administered on 10/16/21at 11:20; Start 10/16/21 at 09:30; Stop 10/16/21 at 09:31; Status DC Potassium Chloride (Klor-Con) 20 meq DAILYWBKFT PO Last administered on 10/20/21at 10:40; Start 10/16/21 at 15:00 Potassium Chloride (Klor-Con) 20 meq 1X ONCE PO ; Start 10/16/21 at 14:00; Stop 10/16/21 at 14:01; Status UNV Cetirizine HCl (ZyrTEC) 10 mg DAILY PO ; Start 10/17/21 at 09:00; Stop 10/16/21 at 19:36; Status DC Dabigatran (Pradaxa) 150 mg DAILY PO Last administered on 10/20/21at 10:40; Start 10/17/21 at 09:00 Morphine Sulfate (Morphine Ir) 15 mg BID PO ; Start 10/16/21 at 21:00; Status UNV Ondansetron HCl (Zofran Odt) 4 mg PRN BID PRN PO NAUSEA/VOMITING; Start 10/16/21 at 14:00 Polyethylene Glycol (miraLAX Powder BULK BOTTLE) 17 gm DAILY PO ; Start 10/17/21 at 09:00; Stop 10/17/21 at 10:11; Status DC Sertraline HCl (Zoloft) 25 mg DAILY PO Last administered on 10/20/21at 10:41; Start 10/17/21 at 09:00 Non-Formulary Medication (Oxycodone Hcl (Oxycontin)) 5 mg BID PO ; Start 10/16/21 at 21:00; Status UNV Piperacillin Sod/ Tazobactam Sod (Zosyn Per Pharmacy) 1 each PRN DAILY PRN MC SEE COMMENTS; Start 10/16/21 at 14:30 Vancomycin HCl (Vanco Per Pharmacy) 1 each PRN DAILY PRN MC SEE COMMENTS Last administered on 10/19/21at 12:34; Start 10/16/21 at 14:30; Stop 10/20/21 at 09:55; Status DC Oxycodone/ Acetaminophen (Percocet 5/325) 1 tab PRN Q4HRS PRN PO MODERATE- SEVERE PAIN Last administered on 10/20/21at 10:41; Start 10/16/21 at 14:30 Morphine Sulfate (Morphine Sulfate) 4 mg PRN Q2HR PRN IVP MILD PAIN 1-3 Last administered on 10/19/21at 21:52; Start 10/16/21 at 14:30 Ondansetron HCl (Zofran) 4 mg PRN Q8HRS PRN IVP NAUSEA/VOMITING Last administered on 10/18/21at 13:52; Start 10/16/21 at 14:30 Piperacillin Sod/ Tazobactam Sod 3.375 gm/Sodium Chloride 50 ml @ 100 mls/hr Q6H IV Last administered on 10/20/21at 06:16; Start 10/16/21 at 15:00 Vancomycin HCl 1.5 gm/Sodium Chloride 500 ml @ 250 mls/hr 1X ONCE IV Last administered on 10/16/21at 17:44; Start 10/16/21 at 16:00; Stop 10/16/21 at 17:59; Status DC Potassium Chloride/Dextrose/ Sod Cl 1,000 ml @ 80 mls/hr [id number] IV Last administered on 10/19/21at 17:04; Start 10/16/21 at 15:30 Doxycycline Hyclate 100 mg/ Dextrose 100 ml @ 50 mls/hr Q12HR IV Last administered on 10/17/21at 21:32; Start 10/16/21 at 21:00; Stop 10/18/21 at 07:36; Status DC Enoxaparin Sodium (Lovenox 40mg Syringe) 40 mg Q24H SQ Last administered on 10/16/21at 17:44; Start 10/16/21 at 17:00; Stop 10/17/21 at 13:34; Status DC Vancomycin HCl 1 gm/Sodium Chloride 250 ml @ 250 mls/hr Q12H IV Last administered on 10/20/21at 06:40; Start 10/17/21 at 06:00; Stop 10/20/21 at 09:57; Status DC Vancomycin HCl (Vancomycin Trough Level) 1 each 1X ONCE MC Last administered on 10/18/21at 08:47; Start 10/18/21 at 05:30; Stop 10/18/21 at 05:31; Status DC Influenza Virus Vaccine Quadrival (Flulaval Quad Syringe) 0.5 ml ONCE ONCE VAX IM ; Start 10/18/21 at 09:00; Stop 10/18/21 at 09:01; Status DC Acetaminophen (Tylenol) 1,000 mg BID PRN PO mild pain or fever Last administered on 10/19/21at 19:41; Start 10/16/21 at 19:45 Benzonatate (Tessalon Perle) 100 mg TID PO Last administered on 10/20/21at 10:40; Start 10/16/21 at 21:00 Calcium Carbonate/ Glycine (Oscal) 500 mg QID PO Last administered on 10/20/21at 10:41; Start 10/16/21 at 21:00 Cetirizine HCl (ZyrTEC) 10 mg DAILY PO Last administered on 10/20/21at 10:39; Start 10/17/21 at 09:00 Oxycodone HCl (Roxicodone) 5 mg PRN Q4HRS PRN PO MOD-SEV PAIN 2ND CHOICE Last administered on 10/19/21at 19:41; Start 10/16/21 at 19:45 Ergocalciferol (Vitamin D2) 50,000 unit Fr PO ; Start 10/23/21 at 09:00 Non-Formulary Medication (Fexofenadine Hcl ) 1 tab DAILY PO ; Start 10/17/21 at 09:00; Status UNV Pantoprazole Sodium (Protonix) 40 mg DAILYAC PO Last administered on 10/20/21at 10:40; Start 10/17/21 at 07:30 Non-Formulary Medication (Osimertinib Mesylate (Tagrisso)) 80 mg DAILY PO Last administered on 10/20/21at 10:42; Start 10/17/21 at 10:30 Sennosides (Senna) 8.6 mg DAILY PO Last administered on 10/19/21at 08:45; Start 10/17/21 at 09:00 Sodium Chloride 1,000 ml @ 1,000 mls/hr 1X ONCE IV Last administered on 10/16/21at 23:03; Start 10/16/21 at 23:00; Stop 10/16/21 at 23:59; Status DC Sodium Chloride 1,000 ml @ 125 mls/hr 1X ONCE IV ; Start 10/16/21 at 23:00; Stop 10/17/21 at 06:59; Status Cancel Albuterol/ Ipratropium (Duoneb) 3 ml RTQID NEB Last administered on 10/20/21at 11:55; Start 10/17/21 at 08:00 Polyethylene Glycol (miraLAX PACKET) 17 gm DAILY PO Last administered on 10/19/21at 08:45; Start 10/17/21 at 10:30 Hydromorphone HCl (Dilaudid) 2 mg PRN Q2HRS PRN IVP SEVERE PAIN 7-10 Last administered on 10/17/21at 21:31; Start 10/17/21 at 21:15 Fentanyl Citrate (Fentanyl 2ml Vial) 50 mcg PRN Q1HR PRN IVP MODERATE PAIN; Start 10/17/21 at 21:15 Diphenhydramine HCl (Benadryl) 25 mg PRN Q6HRS PRN PO ITCHING Last administered on 10/18/21at 00:19; Start 10/18/21 at 00:15 Doxycycline Hyclate (Vibra-Tab) 100 mg BID PO Last administered on 10/20/21at 10:41; Start 10/18/21 at 09:00 Active Scripts Active Potassium Chloride (Potassium Chloride) 20 Meq Tablet.er 20 Meq PO DAILYWBKFT 30 Days Doxycycline Hyclate 100 Mg Tablet 100 Mg PO BID 7 Days Reported D3-50 (Cholecalciferol (Vitamin D3)) 50,000 Unit Capsule 1 Cap PO QFR 28 Days Cetirizine Hcl 10 Mg Tablet 1 Tab PO DAILY Calcium (Calcium Carbonate) 500 Mg Tablet 1 Tab PO QID 30 Days Fexofenadine Hcl 180 Mg Tablet 1 Tab PO DAILY Benzonatate 100 Mg Capsule 1 Cap PO TID Acetaminophen 500 Mg Tablet 2 Tab PO BID PRN 15 Days Omeprazole 40 Mg Capsule. 1 Cap PO DAILY Oxycodone Hcl Immed.release (Oxycodone Hcl) 5 Mg Tablet 5 Mg PO PRN Q4HRS PRN Miralax (Polyethylene Glycol 3350) 119 Gm Powder 17 Gm PO DAILY dissolve in water Xgeva (Denosumab) 120 Mg/1.7 Ml Vial 120 Mg SQ Q4WK Cetirizine Hcl 10 Mg Tablet 10 Mg PO DAILY Senna (Sennosides) 8.8 Mg/5 Ml Syrup 8.8 Mg PO DAILY Ondansetron Odt (Ondansetron) 4 Mg Tab.rapdis 4 Mg PO BID PRN Zoloft (Sertraline Hcl) 25 Mg Tablet 25 Mg PO DAILY Pradaxa (Dabigatran Etexilate Mesylate) 150 Mg Capsule 150 Mg PO BID Tagrisso (Osimertinib Mesylate) 80 Mg Tablet 80 Mg PO DAILY Allergies Allergies: Coded Allergies: No Known Drug Allergies (Unverified , 06/22/21) ROS Review of System Negative unless stated otherwise in HPI Physical Exam Physical Exam General: Awake, alert, no distress Head: Atraumatic, no conjunctival icterus, normal oral cavity mucosa Neck: Supple, no lymphadenopathy Chest: No trauma noted Cardiovascular: Regular rhythm, normal rate, no murmurs Respiratory: Bilateral air entry noted, lungs clear to auscultation bilaterally. No accessory muscle use Abdominal: Abdomen is soft, nontender, nondistended. Bowel sounds were normal. No hepatomegaly or splenomegaly Musculoskeletal: No deformity noted Extremities: No edema noted Skin: No rash or lesions Neurologic: Alert and oriented x3, no grossly evident neurologic deficits noted. Full neurological exam was not performed Psychiatric: Appropriate mood and affect Vitals VITALS Vital Signs Date Time Temp Pulse Resp B/P (MAP) Pulse Ox O2 Delivery O2 Flow Rate FiO2 10/20/21 11:56 Room Air 10/20/21 11:00 97.6 64 18 137/77 (97) 96 97.6 Labs Labs Laboratory Tests Test 10/19/21 05:15 10/20/21 07:05 White Blood Count 4.5 x10^3/uL (4.0-11.0) 3.7 x10^3/uL (4.0-11.0) Red Blood Count 3.52 x10^6/uL (3.50-5.40) 3.75 x10^6/uL (3.50-5.40) Hemoglobin 8.1 g/dL (12.0-15.5) 8.9 g/dL (12.0-15.5) Hematocrit 26.1 % (36.0-47.0) 28.2 % (36.0-47.0) Mean Corpuscular Volume 74 fL (79-100) 75 fL (79-100) Mean Corpuscular Hemoglobin 23 pg (25-35) 24 pg (25-35) Mean Corpuscular Hemoglobin Concent 31 g/dL (31-37) 32 g/dL (31-37) Red Cell Distribution Width 17.9 % (11.5-14.5) 18.1 % (11.5-14.5) Platelet Count 137 x10^3/uL (140-400) 157 x10^3/uL (140-400) Neutrophils (%) (Auto) 68 % (31-73) 62 % (31-73) Lymphocytes (%) (Auto) 18 % (24-48) 22 % (24-48) Monocytes (%) (Auto) 11 % (0-9) 11 % (0-9) Eosinophils (%) (Auto) 2 % (0-3) 5 % (0-3) Basophils (%) (Auto) 0 % (0-3) 0 % (0-3) Neutrophils # (Auto) 3.1 x10^3/uL (1.8-7.7) 2.3 x10^3/uL (1.8-7.7) Lymphocytes # (Auto) 0.8 x10^3/uL (1.0-4.8) 0.8 x10^3/uL (1.0-4.8) Monocytes # (Auto) 0.5 x10^3/uL (0.0-1.1) 0.4 x10^3/uL (0.0-1.1) Eosinophils # (Auto) 0.1 x10^3/uL (0.0-0.7) 0.2 x10^3/uL (0.0-0.7) Basophils # (Auto) 0.0 x10^3/uL (0.0-0.2) 0.0 x10^3/uL (0.0-0.2) Creatinine 0.8 mg/dL (0.6-1.0) Estimated GFR (Cockcroft-Gault) 75.3 Laboratory Tests Test 10/20/21 07:05 White Blood Count 3.7 x10^3/uL (4.0-11.0) Red Blood Count 3.75 x10^6/uL (3.50-5.40) Hemoglobin 8.9 g/dL (12.0-15.5) Hematocrit 28.2 % (36.0-47.0) Mean Corpuscular Volume 75 fL (79-100) Mean Corpuscular Hemoglobin 24 pg (25-35) Mean Corpuscular Hemoglobin Concent 32 g/dL (31-37) Red Cell Distribution Width 18.1 % (11.5-14.5) Platelet Count 157 x10^3/uL (140-400) Neutrophils (%) (Auto) 62 % (31-73) Lymphocytes (%) (Auto) 22 % (24-48) Monocytes (%) (Auto) 11 % (0-9) Eosinophils (%) (Auto) 5 % (0-3) Basophils (%) (Auto) 0 % (0-3) Neutrophils # (Auto) 2.3 x10^3/uL (1.8-7.7) Lymphocytes # (Auto) 0.8 x10^3/uL (1.0-4.8) Monocytes # (Auto) 0.4 x10^3/uL (0.0-1.1) Eosinophils # (Auto) 0.2 x10^3/uL (0.0-0.7) Basophils # (Auto) 0.0 x10^3/uL (0.0-0.2) Creatinine 0.8 mg/dL (0.6-1.0) Estimated GFR (Cockcroft-Gault) 75.3 Assessment/Plan Assessment/Plan Assessment: Lung adenocarcinoma, stage IV with T790M mutation History of cerebral venous sinus thrombosis Cancer related pain Bone metastasis Acute respiratory failure and fever Recommendations: -Continue de-escalating antibiotics as recommended by pulmonology -Continue with osimertinib 80 mg daily. Patient can take her own medication supply while inpatient -Continue with Pradaxa for CVT history -Outpatient follow-up with medical oncology as already scheduled -No additional inpatient medical oncology evaluation or management required. Disposition per Dr. Castle. Nettles for DC from medical oncology standpoint Rafal Huang MD Medical Oncology/Hematology Ph: [phone] WILMAR HUANG MD Oct 20, 2021 12:59
--- NOTE | 2021-10-20 13:47 | PDOC ---
[employer] PROGRESS NOTE Date of Service DOS: DATE: 10/20/21 TIME: 13:46 Chief Complaint Chief Complaint sepsis pneumonia hypokalemia hx of lung cancer with mets to bone s/p radiation History of Present Illness History of Present Illness 10/20/2021 Patient seen and examined Chart reviewed Discussed with RN Discussed with case management She seems to be at her baseline we will discharge see dictation 10/19/2021 Patient seen and examined Discussed with RN Chart reviewed Patient on FaceTime with her daughter when we entered the room. We discussed the plan with the daughter. Patient's head CT was unremarkable. Vitals/I&O Vitals/I&O: Vital Signs Date Time Temp Pulse Resp B/P (MAP) Pulse Ox O2 Delivery O2 Flow Rate FiO2 10/20/21 11:56 Room Air 10/20/21 11:11 20 96 10/20/21 11:00 97.6 64 137/77 (97) 97.6 I & O 10/19/21 10/19/21 10/20/21 15:00 23:00 07:00 Intake Total 690 ml 340 ml 300 ml Balance 690 ml 340 ml 300 ml Physical Exam General: Alert, Cooperative, mild distress Heart: Regular rate Lungs: Other (b lat diminished bs) Abdomen: Soft, No tenderness Extremities: No edema Skin: No rashes, No significant lesion Labs Labs: Laboratory Tests Test 10/20/21 07:05 White Blood Count 3.7 x10^3/uL (4.0-11.0) Red Blood Count 3.75 x10^6/uL (3.50-5.40) Hemoglobin 8.9 g/dL (12.0-15.5) Hematocrit 28.2 % (36.0-47.0) Mean Corpuscular Volume 75 fL (79-100) Mean Corpuscular Hemoglobin 24 pg (25-35) Mean Corpuscular Hemoglobin Concent 32 g/dL (31-37) Red Cell Distribution Width 18.1 % (11.5-14.5) Platelet Count 157 x10^3/uL (140-400) Neutrophils (%) (Auto) 62 % (31-73) Lymphocytes (%) (Auto) 22 % (24-48) Monocytes (%) (Auto) 11 % (0-9) Eosinophils (%) (Auto) 5 % (0-3) Basophils (%) (Auto) 0 % (0-3) Neutrophils # (Auto) 2.3 x10^3/uL (1.8-7.7) Lymphocytes # (Auto) 0.8 x10^3/uL (1.0-4.8) Monocytes # (Auto) 0.4 x10^3/uL (0.0-1.1) Eosinophils # (Auto) 0.2 x10^3/uL (0.0-0.7) Basophils # (Auto) 0.0 x10^3/uL (0.0-0.2) Creatinine 0.8 mg/dL (0.6-1.0) Estimated GFR (Cockcroft-Gault) 75.3 Assessment and Plan Assessmemt and Plan Problems Medical Problems: (1) Atypical pneumonia Status: Acute (2) Pain of metastatic malignancy Status: Acute sepsis pneumonia hypokalemia pleurisy hx of lung cancer with mets to bone s/p radiation Plan: Probable discharge later today for now continue the following; Continue IV abx Supplemental O2 PRN Home meds Trend labs Encourage p.o. intake Incentive spirometer DVT prophylaxis Appreciate subspecialist input Full code Discharge see dictation Comment Review of Relevant I have reviewed the following items lilia (where applicable) has been applied. Justifications for Admission Other Justification GEOVANY DAVE III DO Oct 20, 2021 13:47
--- NOTE | 2021-10-20 14:11 | DS ---
DATE OF DISCHARGE: 10/20/2021 ADMITTING DIAGNOSIS: Pneumonia. DISCHARGE DIAGNOSES: Resolving pneumonia, resolving sepsis, history of hypokalemia, history of lung cancer with mets to bone, status post radiation. CONSULTS: Dr. Storm and Pulmonary Medicine. PROCEDURES: None. HOSPITAL COURSE: The patient is a pleasant, middle-aged female who presented with pneumonia. She was admitted. We gave her IV antibiotics, breathing treatments, oxygen, steroids. The above consults were obtained. Today, I saw and examined her. She is at her baseline and wants to go home. We plan to discharge. DISPOSITION: Home. ACTIVITY: As tolerated. DIET: Low sodium. MEDICATIONS: Please see the MRAD. Doxycycline 100 b.i.d., potassium 20 a day, p.r.n. Tylenol, benzonatate 100 t.i.d., calcium, cetirizine 10 a day, vitamin D, Pradaxa 150 b.i.d., Xgeva 120 subcutaneous 4 times every 4 weeks, fexofenadine 180 a day, omeprazole 40 a day, ondansetron 4 b.i.d. p.r.n., Tagrisso 80 p.o. daily, p.r.n. oxycodone 5 mg every 4 hours, MiraLax, senna, and Zoloft 25 a day. TOTAL TIME: [address]: KENYATTA/che[place]enne TID: [id number]
[2021-10-20] MEDS: diphenhydrAMINE HCL 25 MG CAPSULE PO PRN (15:09)
--- NOTE | 2021-10-20 16:18 | NUR ---
Patient discharged home to family, accompanied to vehicle. Belongings from room taken with patient (they denied that villavicencio blanket belonged to them, that it belonged to the ambulance company) Related that they would pepper picker the prescriptions.
[2021-10-23] MEDS ORDERED: ERGOCALCIFEROL (VITAMIN D2) 50,000 UNIT CAPSULE. PO SCH (09:00)
== END 2021-10-20 16:18 | disposition still patient (30) | DRG 871 ==
LOC: ER 06:31 → 5 NORTH 10:42 → ER 12:27 → OBSVTOIN 10-18 00:13
PROVIDERS: ADMIT Internal Medicine; ATTEND Internal Medicine
DX: A41.9 Sepsis, unspecified organism (principal); J18.9 Pneumonia, unspecified organism; C34.90 Malignant neoplasm of unspecified part of unspecified bronchus or lung; C79.51 Secondary malignant neoplasm of bone; E87.6 Hypokalemia; G89.3 Neoplasm related pain (acute) (chronic); I10 Essential (primary) hypertension; Z85.118 Personal history of other malignant neoplasm of bronchus and lung; Z87.891 Personal history of nicotine dependence; Z92.3 Personal history of irradiation; Z20.822 Contact with and (suspected) exposure to COVID-19
CPT/HCPCS: 36415; 70450; 71045; 71250; 80048; 80053; 80202; 81001; 82565; 83605; 84145; 84484; 85025; 87426; 87804; 90471; 90686; 93005; 94640; 96365; 96375; G0238; G0378; G0379; J1170; J1650; J2270; J2405; J2543; J3370; J3480; J3490; J7030; J7040; J7050; J7060; U0003; U0005; 99285-25; Q0163

== ENCOUNTER → 2021-10-27 | Outpatient (CLI) | payer OTHER ==
[2021-10-20 11:00] VITALS: BP 137/77
[~2021-10-27] MED LIST changes: +ACET500T68 PO; +BENZ-8 PO; +CALC500T30 PO; +CHOL500021 PO; +DOXY100T PO; +FEXO180T16 PO; +OMEP40CA7 PO; +OXYC5TAB4 PO; +POTA20TA4 PO
--- NOTE | 2021-10-27 16:55 | RAD ---
SITE ID: [id number] EXAMINATION: NM BONE SCAN WHOLE BODY - Whole body bone scan. Technique: After the intravenous administration of 25.5 mCi of Technetium 99m MDP, whole body delayed phase bone scan images were obtained with lateral views of the head and neck and the chest regions. Indication: 50 years Female Reason: LUNG CA Comparison September 22, 2020 Findings: There is a new mild intensity increased radiotracer uptake seen within the distal shaft of the left f emur concerning for from metastatic disease. There is also increased radiotracer activity seen in the medial aspect of the left clavicle and upper aspect of the sternum with the increased intensity comp ared to background degenerative changes suggested on previous bone scan concerning for metastatic dis ease. Subtle increased areas of activity near the catheter right acetabulum and medial aspect of the right the iliac bone is also concerning for developing metastasis. Other areas of the increased the prominent activity in the shoulders is symmetric on the right side a nd in the region of the paranasal sinuses, SI joints appear stable and may relate to degenerative bailee nges. There is symmetric uptake in the kidneys. IMPRESSION: Lesions in the distal shaft of the left femur, medial aspect of the left clavicle, upper sternum and right acetabulum are concerning for metastatic disease. The medial clavicle and upper sindy rnum lesions appear to correlate with sclerotic foci noted on October 16, 2021 CT scan. Electronically signed by: Joss Cadet MD (10/27/2021 4:53 PM) [id number]
== END ==
LOC: NM 10:16
PROVIDERS: ATTEND Physician Assistant
DX: C34.2 Malignant neoplasm of middle lobe, bronchus or lung (principal); M25.80 Other specified joint disorders, unspecified joint
CPT/HCPCS: 78306; A9503

== ENCOUNTER → 2021-10-27 | Outpatient (CLI) | payer OTHER ==
[2021-10-20 11:00] VITALS: BP 137/77
[2021-10-27 14:01] LABS: BASO % 1 % (0-3); EOS # 0.1 x10^3/uL (0.0-0.7); EOS % 2 % (0-3); HEMATOCRIT 31.9 % (36.0-47.0); HEMOGLOBIN 10.1 g/dL (12.0-15.5); LYMPH # 1.1 x10^3/uL (1.0-4.8); LYMPH % 26 % (24-48); MEAN CORPUSCULAR HEMOGLOBIN 25 pg (25-35); MEAN CORPUSCULAR HGB CONC 32 g/dL (31-37); MEAN CORPUSCULAR VOLUME 78 fL (79-100); MONO # 0.4 x10^3/uL (0.0-1.1); MONO % 10 % (0-9); NEUT # 2.6 x10^3/uL (1.8-7.7); NEUT % 62 % (31-73); PLATELET COUNT 176 x10^3/uL (140-400); RED BLOOD COUNT 4.11 x10^6/uL (3.50-5.40); WHITE BLOOD COUNT 4.3 x10^3/uL (4.0-11.0)
[2021-10-27 14:07] LABS: CALCIUM 8.9 mg/dL (8.5-10.1); CREATININE 0.8 mg/dL (0.6-1.0); GFR 75.3; POTASSIUM 3.8 mmol/L (3.5-5.1)
[2021-10-27 14:13] LABS: ALBUMIN 3.3 g/dL (3.4-5.0); ALBUMIN/GLOBULIN RATIO 0.7 (1.0-1.7); TOTAL BILIRUBIN 0.5 mg/dL (0.2-1.0)
[2021-10-27 15:22] LABS: ANISOCYTOSIS SLIGHT; PLT ESTIMATE ADEQUATE (ADEQUATE)
== END ==
LOC: ONCLAB 13:41
PROVIDERS: ATTEND Internal Medicine Hematology & Oncology
DX: C34.2 Malignant neoplasm of middle lobe, bronchus or lung (principal)
CPT/HCPCS: 36415; 80053; 85025

== ENCOUNTER → 2021-10-28 | Outpatient (CLI) | payer OTHER ==
[2021-10-20 11:00] VITALS: BP 137/77
--- NOTE | 2021-10-28 10:50 | RAD ---
PROCEDURE: MG DIAGNOSTICUNILAT MAMMO HISTORY: The patient is 50 years old and is seen for Reason: CALLBACK / Spl. Instructions: / History : . COMPARISON: September 26, 2019 and October 14, 2021 TECHNIQUE: Right breast CC spot compression view. DENSITY: The breast parenchyma is extremely dense, which could obscure a lesion on mammography. FINDINGS: Previously identified asymmetry within the right outer breast on CC view is less apparent o n spot compression views. IMPRESSION: Previously identified asymmetry within the left outer breast is less apparent on spot com pression views, likely overlapping fibroglandular tissue. Recommend return for annual screening. Recommend annual screening mammograms per [employer] guidelines. She will be due in one year. BI-RADS category 2 Benign Patient entered into a reminder system for annual screening mammogram. Electronically signed by: Jona Matson DO (10/28/2021 10:47 AM) [id number]
== END ==
LOC: MAMMO 10:02
PROVIDERS: ATTEND Physician Assistant
DX: R92.8 Other abnormal and inconclusive findings on diagnostic imaging of breast (principal)
CPT/HCPCS: 77065

== ENCOUNTER → 2021-11-30 | Outpatient (CLI) | payer OTHER ==
[2021-11-30 13:40] LABS: BASO % 0 % (0-3); EOS # 0.1 x10^3/uL (0.0-0.7); EOS % 3 % (0-3); HEMATOCRIT 35.1 % (36.0-47.0); HEMOGLOBIN 11.4 g/dL (12.0-15.5); LYMPH # 0.8 x10^3/uL (1.0-4.8); LYMPH % 25 % (24-48); MEAN CORPUSCULAR HEMOGLOBIN 27 pg (25-35); MEAN CORPUSCULAR HGB CONC 33 g/dL (31-37); MEAN CORPUSCULAR VOLUME 81 fL (79-100); MONO # 0.5 x10^3/uL (0.0-1.1); MONO % 14 % (0-9); NEUT % 58 % (31-73); PLATELET COUNT 137 x10^3/uL (140-400); RED BLOOD COUNT 4.31 x10^6/uL (3.50-5.40); RED CELL DISTRIBUTION WIDTH 24.6 % (11.5-14.5); WHITE BLOOD COUNT 3.4 x10^3/uL (4.0-11.0)
[2021-11-30 15:24] LABS: ALBUMIN 3.6 g/dL (3.4-5.0); ALBUMIN/GLOBULIN RATIO 0.8 (1.0-1.7); CREATININE 0.8 mg/dL (0.6-1.0); POTASSIUM 3.2 mmol/L (3.5-5.1); TOTAL BILIRUBIN 0.4 mg/dL (0.2-1.0)
[2021-11-30 16:15] LABS: ANISOCYTOSIS MOD; PLT ESTIMATE ADEQUATE (ADEQUATE)
== END ==
LOC: ONCLAB 13:07
PROVIDERS: ATTEND Internal Medicine Hematology & Oncology
DX: C34.2 Malignant neoplasm of middle lobe, bronchus or lung (principal)
CPT/HCPCS: 36415; 80053; 85025

== ENCOUNTER → 2022-01-04 | Outpatient (CLI) | payer OTHER ==
[2022-01-04 12:18] LABS: BASO % 0 % (0-3); EOS # 0.1 x10^3/uL (0.0-0.7); EOS % 3 % (0-3); HEMATOCRIT 37.3 % (36.0-47.0); HEMOGLOBIN 12.1 g/dL (12.0-15.5); LYMPH # 0.9 x10^3/uL (1.0-4.8); LYMPH % 18 % (24-48); MEAN CORPUSCULAR HEMOGLOBIN 28 pg (25-35); MEAN CORPUSCULAR HGB CONC 33 g/dL (31-37); MEAN CORPUSCULAR VOLUME 85 fL (79-100); MONO # 0.5 x10^3/uL (0.0-1.1); MONO % 10 % (0-9); NEUT # 3.5 x10^3/uL (1.8-7.7); NEUT % 68 % (31-73); PLATELET COUNT 154 x10^3/uL (140-400); RED CELL DISTRIBUTION WIDTH 20.4 % (11.5-14.5); WHITE BLOOD COUNT 5.1 x10^3/uL (4.0-11.0)
[2022-01-04 12:31] LABS: CALCIUM 8.2 mg/dL (8.5-10.1); CREATININE 0.8 mg/dL (0.6-1.0); POTASSIUM 3.6 mmol/L (3.5-5.1)
[2022-01-04 12:37] LABS: ALBUMIN 3.4 g/dL (3.4-5.0); ALBUMIN/GLOBULIN RATIO 0.7 (1.0-1.7); TOTAL BILIRUBIN 0.5 mg/dL (0.2-1.0); TOTAL PROTEIN 8.3 g/dL (6.4-8.2)
[2022-01-04 13:07] LABS: PLT ESTIMATE ADEQUATE (ADEQUATE)
[2022-01-04 13:09] LABS: ANISOCYTOSIS MOD
== END ==
LOC: ONCLAB 11:34
PROVIDERS: ATTEND Internal Medicine Hematology & Oncology
DX: C34.2 Malignant neoplasm of middle lobe, bronchus or lung (principal)
CPT/HCPCS: 36415; 80053; 85025

== ENCOUNTER → 2022-01-22 | Outpatient (CLI) | payer OTHER ==
[~2022-01-22] MED LIST changes: +CONTRAST GIVEN. MC PRN; +FEXO-212 PO; -FEXO180T16 PO; +IOHEXOL 240 MG/ML 50ML VIAL. PO ONE; +IOHEXOL 300 MG/ML 100ML VIAL. IV ONE
--- NOTE | 2022-01-22 17:15 | RAD ---
EXAM: CT CHEST, ABDOMEN, AND PELVIS WITH CONTRAST INDICATION: CT chest abdomen pelvis 07/23/2021 COMPARISON: Restaging lung cancer TECHNIQUE: Helical CT imaging performed of the chest, abdomen and pelvis after administration of 75 m L Omnipaque 300 intravenous contrast. Sagittal and coronal reformats were obtained. One or more of the following individualized dose reduction techniques were utilized for this examinat ion: 1. Automated exposure control 2. Adjustment of the mA and/or kV according to patient size 3. Use of iterative reconstruction technique. FINDINGS: CHEST: Thyroid gland and thoracic inlet: The visualized portion of thyroid gland is normal. Heart and great vessels: The heart is normal in size. No pericardial effusion. Thoracic aorta is norm al in caliber. Central pulmonary arteries are clear. Mediastinum and nawaf: No mediastinal or hilar lymphadenopathy. Lungs and pleura: The right middle lobe mass is unchanged measuring 2.0 x 1.7 cm. Mild surrounding op acities have slightly decreased. Subpleural opacities in the posterior right upper lobe are unchanged may be sequela of radiation therapy. There is no new nodule. No pleural effusion. Chest wall and axillae: No axillary lymphadenopathy. Breast tissue is symmetric. ABDOMEN AND PELVIS: Liver: Normal. Gallbladder/Biliary Tree: Normal. Pancreas: Normal Spleen: Normal Adrenal Glands: Normal Kidneys/Ureters/Bladder: Normal. Reproductive Organs: Uterus is present. Adnexal mass. Stomach, small bowel, and colon: The stomach, small bowel, and colon are normal. Moderate volume of s tool. Vasculature: No aortic aneurysm. Lymph Nodes: No lymphadenopathy. Peritoneum and retroperitoneum: No free fluid or free air. MUSCULOSKELETAL: Multiple small sclerotic foci in the pelvis, proximal femurs, L4 and L5 have mildly increased in size and density. There are new tiny sclerotic foci throughout the rest of the lumbar sp ine. Small sclerotic foci in the sternum has increased in size and density and there are few new scle rotic foci. There are new small sclerotic foci in T9, T10, T11, and T12. Unchanged sclerotic lesion i n the right glenoid. Increased sclerotic lesion in the left clavicular head and new sclerotic foci in the left humerus and glenoid. IMPRESSION: 1. Stable right middle lobe mass. 2. Multiple small scattered sclerotic foci throughout the bones. Many of these have mildly increased in size and density and some are new Electronically signed by: Jessica Farris MD (01/22/2022 5:13 PM) [place] [id number]
--- NOTE | 2022-01-22 17:24 | RAD ---
Nuclear medicine whole body bone scan History: EGFR positive non-small cell lung cancer. Comparison: Whole-body bone scan October 27, 2021. CT chest abdomen and pelvis of contrast January. Technique: Examination performed after intravenous administration of 25.4 mCi Technetium 99m MDP. Im ages of the whole body were obtained in the anterior and posterior projections. Findings: Increased tracer uptake in the distal left femur is more apparent and the area of uptake is larger. T here are 2 additional foci more distally, one of which is new from prior study. Focus of uptake of th e proximal left tibia is more apparent. There is increased tracer uptake in the intertrochanteric rig ht and left femur. Sclerotic foci are seen on CT. There is more apparent increased tracer uptake of the proximal left humerus. There is faint increased tracer uptake in the mid diaphysis of the right and left humerus. The increased tracer uptake in the upper sternum is stable to slightly less. A sclerotic lesion is se en on CT. Increased tracer uptake of the medial left clavicle is unchanged. A sclerotic lesion is seen on CT. There is intense tracer uptake of the right shoulder, unchanged. A sclerotic lesion is seen in the ri ght glenoid on CT. Increased tracer uptake of the right acetabulum is unchanged. Sclerotic lesion is seen on CT. Tracer uptake in the spine is relatively homogeneous. Tracer distribution in the soft tissues appears physiologic. Numerous small sclerotic lesions are seen in the pelvic bones on CT. Heterogeneous tracer uptake of t he bilateral sacroiliac joints may localize to some of these foci. 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 Electronically signed by: Blake Dubon MD (01/22/2022 5:21 PM) [id number]
== END ==
LOC: NM 09:42
PROVIDERS: ATTEND Physician Assistant
DX: C34.2 Malignant neoplasm of middle lobe, bronchus or lung (principal); R91.8 Other nonspecific abnormal finding of lung field
CPT/HCPCS: 71260; 74177; 78306; A9503; Q9966; Q9967

== ENCOUNTER → 2022-02-08 | Outpatient (CLI) | payer OTHER ==
[~2022-02-08] MED LIST changes: -CONTRAST GIVEN. MC PRN; -IOHEXOL 240 MG/ML 50ML VIAL. PO ONE; -IOHEXOL 300 MG/ML 100ML VIAL. IV ONE
[2022-02-08 12:29] LABS: BASO % 0 % (0-3); EOS # 0.1 x10^3/uL (0.0-0.7); EOS % 2 % (0-3); HEMATOCRIT 38.6 % (36.0-47.0); HEMOGLOBIN 12.5 g/dL (12.0-15.5); LYMPH # 1.1 x10^3/uL (1.0-4.8); LYMPH % 22 % (24-48); MEAN CORPUSCULAR HEMOGLOBIN 28 pg (25-35); MEAN CORPUSCULAR HGB CONC 32 g/dL (31-37); MEAN CORPUSCULAR VOLUME 87 fL (79-100); MONO # 0.5 x10^3/uL (0.0-1.1); MONO % 10 % (0-9); NEUT # 3.4 x10^3/uL (1.8-7.7); NEUT % 66 % (31-73); PLATELET COUNT 153 x10^3/uL (140-400); RED BLOOD COUNT 4.44 x10^6/uL (3.50-5.40); RED CELL DISTRIBUTION WIDTH 14.6 % (11.5-14.5); WHITE BLOOD COUNT 5.2 x10^3/uL (4.0-11.0)
[2022-02-08 12:43] LABS: CALCIUM 8.9 mg/dL (8.5-10.1); CREATININE 0.8 mg/dL (0.6-1.0); POTASSIUM 3.8 mmol/L (3.5-5.1)
[2022-02-08 12:49] LABS: ALBUMIN 3.8 g/dL (3.4-5.0); ALBUMIN/GLOBULIN RATIO 0.8 (1.0-1.7); TOTAL BILIRUBIN 0.6 mg/dL (0.2-1.0); TOTAL PROTEIN 8.5 g/dL (6.4-8.2)
== END ==
LOC: ONCLAB 11:47
PROVIDERS: ATTEND Internal Medicine Hematology & Oncology
DX: C34.2 Malignant neoplasm of middle lobe, bronchus or lung (principal)
CPT/HCPCS: 36415; 80053; 85025

== ENCOUNTER → 2022-03-05 | Outpatient (CLI) | payer OTHER ==
[~2022-03-05] MED LIST changes: +AMOX1TAB61 PO; -FEXO-212 PO; +FEXO-213 PO; +PRED20TA PO
--- NOTE | 2022-03-05 17:49 | RAD ---
EXAM: PET/CT SKULL BASE THROUGH MID THIGH. HISTORY: Non-small cell lung cancer with bone metastases. TECHNIQUE: CT of the skull base through the mid thighs was performed for the purposes of attenuation correction. 11.600 mCi F-18 fluorodeoxyglucose were administered intravenously. Blood glucose level a t the time of administration was 105 mg/dL. After 45 minutes uptake, positron emission tomography of the skull base through the mid thighs was performed. The PET and CT data were fused and interpreted i n combination on a dedicated workstation. Reported standard uptake values (SUV) are the maximum SUV w ithin a lesional volumetric region of interest. SUV normalization is via body mass. COMPARISON: CT chest abdomen pelvis 01/23/2020. FINDINGS: Mediastinal blood pool SUV reference value: SUV average 1.71, SUV max 2.13 Head and neck: There is mild FDG uptake in the posterior tonsils, likely physiologic. Chest: Mild FDG uptake in the right middle lobe mass, SUV max 3.59. There are mildly FDG avid right h ilar and paratracheal lymph nodes with SUV max 2.42 and 2.56, respectively. There are mild confluent subpleural opacities in the posterior right apex with low FDG uptake, 1.97. Abdomen and pelvis: No abnormal FDG uptake. Musculoskeletal: There are multiple small scattered sclerotic bone lesions with FDG uptake in the pro ximal humeri, femora, thoracic and lumbar spine, and scattered throughout the pelvis. The lesion with the most intense FDG uptake is a sclerotic lesion in the right hemisacrum which has SUV max 2.72. A lesion in the left proximal humerus with SUV max 2.12 and in the right proximal humerus 2.34. A lesio n in the right proximal femur has SUV max 1.97. Additional CT findings: No lymphadenopathy in the head, neck, chest, abdomen, or pelvis. The ascendin g thoracic aorta is at the upper limit of normal caliber measuring 3.9 cm. There is new diffuse bladd er wall thickening, nonspecific. IMPRESSION: 1. Mildly FDG avid right middle lobe mass, SUV max 3.59. 2. There is mild FDG uptake in a right hilar and right paratracheal lymph node, suspicious for metast atic disease. 3. Mild FDG uptake in multiple sclerotic metastatic bone lesions, as described. 4. Low FDG uptake in mild subpleural confluent opacities in the posterior right apex. This is nonspec ific but may be radiation changes. Recommend attention on follow-up. Electronically signed by: Jessica Farris MD (03/05/2022 5:47 PM) [id number]
== END ==
LOC: PETSC 07:49
PROVIDERS: ATTEND Internal Medicine Hematology & Oncology
DX: C79.51 Secondary malignant neoplasm of bone (principal); C34.2 Malignant neoplasm of middle lobe, bronchus or lung
CPT/HCPCS: 78815; A9552

== ENCOUNTER 2022-03-07 20:10 | Inpatient (IN) | payer OTHER ==
[~2022-03-07] VITALS: Ht 160 cm; Wt 63.5 kg
[~2022-03-07 20:10] MED LIST changes: -AMOX1TAB61 PO; -PRED20TA PO
--- NOTE | 2022-03-07 21:01 | PHYS DOC ---
Past Medical History Additional Past Medical Histor: LUNG CANCER, RIGHT SHOULDER/RIGHT ARM CANCER Past Surgical History: No Surgical History Smoking Status: Former Smoker Alcohol Use: None Drug Use: None General Adult EDM: Chief Complaint: COUGH HPI: HPI: Patient is a 51-year-old female who presents today with cough and epigastric pain x1 episode today. Patient is Kinyarwanda speaking only and her family is at bedside to help with interpretation. According to the family member at the bedside patient has been having cough for over 1 month now, they state that they have called her oncologist because the patient has stage IV metastatic lung cancer, and she is taking an oral chemotherapy agent, and they states that they told her that the cough was related to allergies and that she should take [id number] medications such as an antihistamine to help with symptoms, family member states that the patient has not gotten any better with that and earlier today around 8 AM patient had a 5-minute episode of epigastric pain that has since resolved. Patient also describes pain in bilateral shoulders in the lower chest area and also in the left abdominal area, daughter states all those areas of pain have been addressed by oncology and they are thinking that her cancer has spread more. Review of Systems: Review of Systems: Constitutional: Denies fever or chills. [] Eyes: Denies change in visual acuity. [] HENT: Denies nasal congestion or sore throat. [] Respiratory: Denies cough or shortness of breath. [] Cardiovascular: Denies chest pain or edema. [] GI: Denies abdominal pain, nausea, vomiting, bloody stools or diarrhea. [] : Denies dysuria. [] Musculoskeletal: Denies back pain or joint pain. [] Integument: Denies rash. [] Neurologic: Denies headache, focal weakness or sensory changes. [] Endocrine: Denies polyuria or polydipsia. [] Lymphatic: Denies swollen glands. [] Psychiatric: Denies depression or anxiety. [] Heart Score: C/O Chest Pain: No Risk Factors: Risk Factors: DM, Current or recent (<one month) smoker, HTN, HLP, family history of CAD, obesity. Risk Scores: Score 0 - 3: 2.5% MACE over next 6 weeks - Discharge Home Score 4 - 6: 20.3% MACE over next 6 weeks - Admit for Clinical Observation Score 7 - 10: 72.7% MACE over next 6 weeks - Early Invasive Strategies Allergies: Allergies: Allergies Coded Allergies Type Severity Reaction Last Updated Verified No Known Drug Allergies 06/22/21 No Physical Exam: PE: Constitutional: Well developed, well nourished, no acute distress, non-toxic appearance. [] HENT: Normocephalic, atraumatic, bilateral external ears normal, oropharynx moist, no oral exudates, nose normal. [] Eyes: PERRLA, EOMI, conjunctiva normal, no discharge. [] Neck: Normal range of motion, no tenderness, supple, no stridor. [] Cardiovascular:Heart rate regular rhythm, no murmur [] Lungs & Thorax: Bilateral breath sounds diminished bilaterally, dry cough noted Abdomen: Bowel sounds normal, soft, no tenderness, no masses, no pulsatile masses. [] Skin: Warm, dry, no erythema, no rash. [] Back: No tenderness, no CVA tenderness. [] Extremities: No tenderness, no cyanosis, no clubbing, ROM intact, no edema. [] Neurologic: Alert and oriented X 3, normal motor function, normal sensory function, no focal deficits noted. [] Psychologic: Affect normal, judgement normal, mood normal. [] Current Patient Data: Labs: Laboratory Tests Test 03/07/22 22:05 03/07/22 22:10 White Blood Count 4.1 x10^3/uL Red Blood Count 3.93 x10^6/uL Hemoglobin 11.5 g/dL Hematocrit 34.1 % Mean Corpuscular Volume 87 fL Mean Corpuscular Hemoglobin 29 pg Mean Corpuscular Hemoglobin Concent 34 g/dL Red Cell Distribution Width 14.0 % Platelet Count 139 x10^3/uL Neutrophils (%) (Auto) 56 % Lymphocytes (%) (Auto) 32 % Monocytes (%) (Auto) 10 % Eosinophils (%) (Auto) 2 % Basophils (%) (Auto) 0 % Neutrophils # (Auto) 2.3 x10^3/uL Lymphocytes # (Auto) 1.3 x10^3/uL Monocytes # (Auto) 0.4 x10^3/uL Eosinophils # (Auto) 0.1 x10^3/uL Basophils # (Auto) 0.0 x10^3/uL Sodium Level 141 mmol/L Potassium Level 4.1 mmol/L Chloride Level 107 mmol/L Carbon Dioxide Level 25 mmol/L Anion Gap 9 Blood Urea Nitrogen 7 mg/dL Creatinine 0.6 mg/dL Estimated GFR (Cockcroft-Gault) 104.6 BUN/Creatinine Ratio 12 Glucose Level 95 mg/dL Calcium Level 8.7 mg/dL Total Bilirubin 0.5 mg/dL Aspartate Amino Transf (AST/SGOT) 42 U/L Alanine Aminotransferase (ALT/SGPT) 40 U/L Alkaline Phosphatase 79 U/L Troponin I High Sensitivity 5 ng/L UN-Efh-H-Type Natriuretic Peptide 138 pg/mL Total Protein 7.5 g/dL Albumin 3.3 g/dL Albumin/Globulin Ratio 0.8 Lipase 161 U/L Influenza Type A Antigen Negative Influenza Type B Antigen Negative SARS-CoV-2 Antigen (Rapid) Negative Urine Collection Type Unknown Urine Color (Auto) Colorless Urine Turbidity Clear Urine pH (Auto) 6.5 Urine Specific [place] 1.008 Urine Protein (Auto) Negative mg/dL Urine Glucose (Auto)(UA) Negative mg/dL Urine Ketones (Auto) Negative mg/dL Urine Blood (Auto) Negative Urine Nitrite Negative Urine Bilirubin (Auto) Negative Urine Urobilinogen (Auto) Normal mg/dL Urine Leukocyte Esterase (Auto) Negative Urine RBC 3-5 /HPF Urine WBC 1-4 /HPF Urine Squamous Epithelial Cells Occ /LPF Urine Bacteria 0 /HPF Current Medications Medications (Trade) Dose Ordered Sig/Charley Route PRN Reason Start Time Stop Time Status Last Admin Dose Admin Methylprednisolone Sodium Succinate (SOLU-Medrol 125MG VIAL) 125 mg 1X ONCE IV 03/07/22 21:30 03/07/22 21:31 Cancel Diphenhydramine HCl (Benadryl) 50 mg 1X ONCE IVP 03/07/22 21:30 03/07/22 21:31 Cancel Epinephrine HCl (Adrenalin) 0.3 mg 1X ONCE SQ 03/07/22 21:30 03/07/22 21:31 Cancel Methylprednisolone Sodium Succinate (SOLU-Medrol 125MG VIAL) 125 mg STK-MED ONCE .ROUTE 03/07/22 21:05 03/07/22 21:07 DC Diphenhydramine HCl (Benadryl) 50 mg STK-MED ONCE .ROUTE 03/07/22 21:05 03/07/22 21:07 DC Epinephrine HCl (Adrenalin) 1 mg STK-MED ONCE .ROUTE 03/07/22 21:05 03/07/22 21:07 DC Iohexol (Omnipaque 300 Mg/ml) 75 ml 1X ONCE IV 03/07/22 23:30 03/07/22 23:31 DC 03/07/22 23:23 Info (CONTRAST GIVEN -- Rx MONITORING) 1 each PRN DAILY PRN MC SEE COMMENTS 03/07/22 23:00 03/09/22 22:59 Vital Signs: Vital Signs Date Time Temp Pulse Resp B/P (MAP) Pulse Ox O2 Delivery O2 Flow Rate FiO2 03/07/22 20:30 97.7 69 20 161/84 (109) 97 97.7 Vital Signs Date Time Temp Pulse Resp B/P (MAP) Pulse Ox O2 Delivery O2 Flow Rate FiO2 03/07/22 20:30 97.7 69 20 161/84 (109) 97 97.7 EKG: EKG: EKG done at [address] Bangura at 0010 showed sinus rhythm with no ectopy at a rate of 60 with a [place] interval of 176 ms with a QTC of 444 ms no STEMI [] Radiology/Procedures: Radiology/Procedures: REASON: cough, hx of metastatic lung cancer PROCEDURE: CT CHEST ABD PELVIS W/CONTRAST Study: CT chest, abdomen and pelvis with contrast INDICATION: Cough. History of metastatic lung cancer. COMPARISON: PET/CT 03/05/2022; CT chest, abdomen and pelvis 01/22/2022 TECHNIQUE: Helical CT imaging performed of the chest, abdomen and pelvis after the intravenous administration of 75 cc Omnipaque 300. Coronal and sagittal reformats were obtained. One or more of the following individualized dose reduction techniques were utilized for this examination: 1. Automated exposure control 2. Adjustment of the mA and/or kV according to patient size 3. Use of iterative reconstruction technique. FINDINGS: CT Chest: Pleural-based opacity posteriorly at the right lung apex is unchanged. Mass within the right middle lobe is no different in size. Similar mild heterogeneity of lung parenchymal attenuation pattern from comparison exams with some subpleural predominant reticular densities and areas of attenuation. No newly seen confluent airspace infiltrate. No pleural effusion or pneumothorax. No central airway opacification has developed. No aortic aneurysm or dissection. Unchanged mild ectasia of the ascending aorta in relation to the caliber of the descending aorta. Main pulmonary artery caliber is within normal limits. No central pulmonary embolism. The study is not performed to adequately assess the more peripheral pulmonary arteries. FDG avid lymph nodes on the comparison PET/CT are no different in size. No pericardial effusion. Axillary lymph nodes are within normal limits. The partially imaged thyroid is unremarkable. Redemonstration of multifocal sclerotic metastatic disease. Unchanged deformity and flattening of the right humeral head. No pathologic fracture is identified. CT Abdomen/Pelvis: No newly seen abnormality of the liver, gallbladder, biliary tree, pancreas, spleen or adrenal glands. Unchanged subcentimeter nodule at the far posterior margin of the right adrenal gland. Symmetric renal parenchymal enhancement. No hydronephrosis. Mildly distended urinary bladder. No localized wall thickening. Within normal limits uterus and adnexa. Mild/moderate constipation. Unchanged appendix which is either redundant and difficult to visualize more distally or short in length. No pathologic dilatat ion of small bowel or pneumatosis. Unremarkable stomach considering incomplete distention. No acute major vascular abnormality. Mild calcified and noncalcified atheromatous plaque. No lymphadenopathy has developed based on size criteria. No free fluid or pneumoperitoneum. Multifocal sclerotic metastases. No pathologic fracture. IMPRESSION: CT Chest: 1. No acute finding is identified throughout the chest to help explain reported cough. No significant change from the recent PET/CT performed on 03/05/2022. A right middle lobe mass and a right lung apex pleural-based opacity have not changed in size and have been described previously. No interval lymph node enlargement. CT Abdomen/Pelvis: 1. No acute abnormality seen throughout the abdomen or pelvis. 2. Mild/moderate constipation. 3. Diffuse known sclerotic osseous metastases. No pathologic fracture. Electronically signed by: JOSE PERALES MD (03/08/2022 12:18 AM) [facility] DICTATED and SIGNED BY: JOSE PERALES MD DATE: 03/08/22 0006 [] Course & Med Decision Making: Course & Med Decision Making Pertinent Labs and Imaging studies reviewed. (See chart for details) 0100 reviewed radiological and laboratory results with daughter who was there to interpret for the patient due to Kinyarwanda, I did inform her that her scans from last week and the CT scan from today are no change in status, patient continues to have cough and allover pain, after speaking with the patient more she has only been taking Tylenol for her pain and not oxycodone as previously reported. I did inform her that the patient since she is having increased weakness, cough, and generalized not feeling well I said admission would be reasonable at this time due to patient's past medical history, they are agreeable to this I did inform her that we will have medications for her cough and for her itchy nose and for her pain available for her if she should ask for it. Dragon Disclaimer: Dragon Disclaimer: This electronic medical record was generated, in whole or in part, using a voice recognition dictation system. Departure Departure Impression: Primary Impression: Lung cancer, primary, with metastasis from lung to other site Qualified Codes: C34.91 - Malignant neoplasm of unspecified part of right bronchus or lung Additional Impression: Cough Disposition: 09 ADMITTED INPATIENT Admitting Physician: DANIELLA Condition: STABLE Referrals: HAROON CAMARGO MD (PCP) JOHNNIE CASTANEDA APRN Mar 07, 2022 21:00
[2022-03-07] MEDS ORDERED: diphenhydrAMINE 50 MG/ML VIAL ONE (21:05)
[2022-03-07] MEDS ORDERED: EPINEPHrine 1 MG/ML VIAL ONE (21:05)
[2022-03-07] MEDS ORDERED: methylPREDNISolone SOD SUCC PF 125 MG/2 ML VIAL. ONE (21:05)
[2022-03-07] MEDS ORDERED: EPINEPHrine 1 MG/ML VIAL SQ ONE (21:30)
[2022-03-07] MEDS ORDERED: diphenhydrAMINE 50 MG/ML VIAL IVP ONE (21:30)
[2022-03-07] MEDS ORDERED: methylPREDNISolone SOD SUCC PF 125 MG/2 ML VIAL. IV ONE (21:30)
[2022-03-07 22:18] LABS: BASO % 0 % (0-3); EOS # 0.1 x10^3/uL (0.0-0.7); EOS % 2 % (0-3); HEMATOCRIT 34.1 % (36.0-47.0); HEMOGLOBIN 11.5 g/dL (12.0-15.5); LYMPH # 1.3 x10^3/uL (1.0-4.8); LYMPH % 32 % (24-48); MEAN CORPUSCULAR HEMOGLOBIN 29 pg (25-35); MEAN CORPUSCULAR HGB CONC 34 g/dL (31-37); MEAN CORPUSCULAR VOLUME 87 fL (79-100); MONO # 0.4 x10^3/uL (0.0-1.1); MONO % 10 % (0-9); NEUT # 2.3 x10^3/uL (1.8-7.7); NEUT % 56 % (31-73); PLATELET COUNT 139 x10^3/uL (140-400); RED BLOOD COUNT 3.93 x10^6/uL (3.50-5.40); WHITE BLOOD COUNT 4.1 x10^3/uL (4.0-11.0)
[2022-03-07 22:23] LABS: INFLUENZA A PATIENT NEGATIVE (NEGATIVE); INFLUENZA B PATIENT NEGATIVE (NEGATIVE)
[2022-03-07 22:36] LABS: CALCIUM 8.7 mg/dL (8.5-10.1); CREATININE 0.6 mg/dL (0.6-1.0); GFR 104.6; POTASSIUM 4.1 mmol/L (3.5-5.1)
[2022-03-07 22:40] LABS: BACTERIA,URINE 0 /HPF (0-FEW)
[2022-03-07 22:41] LABS: ALBUMIN 3.3 g/dL (3.4-5.0); ALBUMIN/GLOBULIN RATIO 0.8 (1.0-1.7); TOTAL BILIRUBIN 0.5 mg/dL (0.2-1.0); TOTAL PROTEIN 7.5 g/dL (6.4-8.2)
[2022-03-07] MEDS ORDERED: CONTRAST GIVEN. MC PRN (23:00)
[2022-03-07] MEDS ORDERED: IOHEXOL 300 MG/ML 100ML VIAL. IV ONE (23:30)
--- NOTE | 2022-03-08 00:16 | RAD ---
Exam Date: 03/07/2022 9:32 PM XR CHEST 1V Indication: Reason: cough / Spl. Instructions: / History: . Comparison: October 16, 2021 FINDINGS/ IMPRESSION: Nodular opacity in the right lung is again seen. Slightly prominent interstitial markings bilaterall y are unchanged, nonspecific but likely chronic. The cardiac silhouette is enlarged. There is no appreciable pleural effusion or pneumothorax. Bone lesions in bilateral humeri and right scapula are again seen consistent with metastases. Electronically signed by: Lazaro Norris MD (03/08/2022 12:13 AM) [id number]
--- NOTE | 2022-03-08 00:20 | RAD ---
Study: CT chest, abdomen and pelvis with contrast INDICATION: Cough. History of metastatic lung cancer. COMPARISON: PET/CT 03/05/2022; CT chest, abdomen and pelvis 01/22/2022 TECHNIQUE: Helical CT imaging performed of the chest, abdomen and pelvis after the intravenous admini stration of 75 cc Omnipaque 300. Coronal and sagittal reformats were obtained. One or more of the following individualized dose reduction techniques were utilized for this examinat ion: 1. Automated exposure control 2. Adjustment of the mA and/or kV according to patient size 3. Use of iterative reconstruction technique. FINDINGS: CT Chest: Pleural-based opacity posteriorly at the right lung apex is unchanged. Mass within the right middle l obe is no different in size. Similar mild heterogeneity of lung parenchymal attenuation pattern from comparison exams with some subpleural predominant reticular densities and areas of attenuation. No ne wly seen confluent airspace infiltrate. No pleural effusion or pneumothorax. No central airway opacif ication has developed. No aortic aneurysm or dissection. Unchanged mild ectasia of the ascending aorta in relation to the ca liber of the descending aorta. Main pulmonary artery caliber is within normal limits. No central pulm onary embolism. The study is not performed to adequately assess the more peripheral pulmonary arterie s. FDG avid lymph nodes on the comparison PET/CT are no different in size. No pericardial effusion. Axillary lymph nodes are within normal limits. The partially imaged thyroid is unremarkable. Redemonstration of multifocal sclerotic metastatic disease. Unchanged deformity and flattening of the right humeral head. No pathologic fracture is identified. CT Abdomen/Pelvis: No newly seen abnormality of the liver, gallbladder, biliary tree, pancreas, spleen or adrenal glands . Unchanged subcentimeter nodule at the far posterior margin of the right adrenal gland. Symmetric re nal parenchymal enhancement. No hydronephrosis. Mildly distended urinary bladder. No localized wall t hickening. Within normal limits uterus and adnexa. Mild/moderate constipation. Unchanged appendix which is either redundant and difficult to visualize m ore distally or short in length. No pathologic dilatation of small bowel or pneumatosis. Unremarkable stomach considering incomplete distention. No acute major vascular abnormality. Mild calcified and noncalcified atheromatous plaque. No lymphade nopathy has developed based on size criteria. No free fluid or pneumoperitoneum. Multifocal sclerotic metastases. No pathologic fracture. IMPRESSION: CT Chest: 1. No acute finding is identified throughout the chest to help explain reported cough. No significan t change from the recent PET/CT performed on 03/05/2022. A right middle lobe mass and a right lung ape x pleural-based opacity have not changed in size and have been described previously. No interval lymp h node enlargement. CT Abdomen/Pelvis: 1. No acute abnormality seen throughout the abdomen or pelvis. 2. Mild/moderate constipation. 3. Diffuse known sclerotic osseous metastases. No pathologic fracture. Electronically signed by: JOSE PERALES MD (03/08/2022 12:18 AM) [facility]
[2022-03-08] MEDS ORDERED: diphenhydrAMINE HCL 25 MG CAPSULE PO PRN (01:15)
[2022-03-08] MEDS ORDERED: ONDANSETRON PF 4 MG/2 ML VIAL. IVP PRN ×2 (01:15→07:30)
[2022-03-08] MEDS ORDERED: ACETAMINOPHEN 325 MG TABLET. PO PRN ×2 (01:15→07:30)
[2022-03-08] MEDS ORDERED: HYDROcodone/APAP 5/325MG 1 TAB TABLET PO PRN (01:15)
[2022-03-08] MEDS ORDERED: BENZONATATE 100 MG CAPSULE. PO PRN (01:15)
[2022-03-08 03:05] VITALS: BP 150/89
--- NOTE | 2022-03-08 03:32 | EKG ---
[facility] [address] [place] [address] Test Date: 2022-03-08 Test Time: 00:08:23 Pat Name: NOEL TILLMAN Department: Room: [facility] Gender: F [employer]: : 1970 Requested By: JOHNNIE CASTANEDA Order Number: [id number] Reading MD: Maxwell Plata Measurements Intervals [place] Rate: 60 P: 44 MS: 176 QRS: 23 QRSD: 86 T: 44 QT: 444 QTc: 444 Interpretive Statements SINUS RHYTHM Electronically Signed On 03-10-2022 17:10:25 CDT by Maxwell Plata
[2022-03-08 07:00] VITALS: BP 121/78
[2022-03-08] MEDS ORDERED: oxyCODONE IR 5 MG TABLET PO PRN (07:30)
[2022-03-08] MEDS ORDERED: SODIUM CHLORIDE 0.65% NASAL SPRAY 45ML BOTTLE. NS PRN (07:30)
[2022-03-08] MEDS ORDERED: ONDANSETRON ODT 4 MG TAB.RAPDIS. PO PRN (07:30)
--- NOTE | 2022-03-08 07:31 | PDOC1 ---
History and Physical Date of Admission Date of Admission DATE: 03/08/22 TIME: 07:22 Identification/Chief Complaint Chief Complaint Cough, epigastric pain Source Source: Patient History of Present Illness History of Present Illness Ms Brady is a 51-year-old female w/ PMHx metastatic lung cancer who presented to ED c/o cough and epigastric pain that occurred once. Patient is Wol[place] speaking only and her family is at bedside to help with interpretation and over the phone as [employer] park interpreter was not available. She has had a complaint of left upper tooth pain, facial swelling and 1 month of annoying cough. She has been told that the cough was related to allergies and has been taking Zyrtec-D and Flonase nasal spray with no improvement. Patient also describes pain in bilateral shoulders in the lower chest area and also in the left abdominal area. Labs with WBC 4.1, Hb 11.5, platelets 139, NA 141, K4.1, BUN 7, CR 0.6, glucose 95, calcium 8.7, bilirubin 0.5, AST 42, ALT 40, alkaline phosphatase 79, albumin 3.3, lipase 161, NT proBNP 138, high-sensitivity troponin is 5, urinalysis bland, rapid COVID-19 and rapid influenza negative. Chest radiograph with nodular opacity right lower lobe pulm lesions bilateral humerus and right scapula. CT chest abdomen pelvis right middle lobe as [place] equal pleural-based opacity noted diffuse sclerotic osseous metastatic disease. EKG sinus rhythm rate 60 bpm normal axis and intervals no ST segment elevations or T WI, QTC 444 Past Medical History Pulmonary: No pertinent hx GI: No pertinent hx Heme/Onc: No pertinent hx Hepatobiliary: No pertinent hx Psych: No pertinent hx Musculoskeletal: low back pain Rheumatologic: No pertinent hx Infectious disease: No pertinent hx Past Surgical History Past Surgical History: No pertinent history Family History Family History: No Significant Social History Smoke: No ALCOHOL: none Drugs: None Current Problem List Problem List Problems Medical Problems: (1) Cough Status: Acute (2) Lung cancer, primary, with metastasis from lung to other site Status: Acute Current Medications Current Medications Current Medications Methylprednisolone Sodium Succinate (SOLU-Medrol 125MG VIAL) 125 mg 1X ONCE IV ; Start 03/07/22 at 21:30; Stop 03/07/22 at 21:31; Status Cancel Diphenhydramine HCl (Benadryl) 50 mg 1X ONCE IVP ; Start 03/07/22 at 21:30; Stop 03/07/22 at 21:31; Status Cancel Epinephrine HCl (Adrenalin) 0.3 mg 1X ONCE SQ ; Start 03/07/22 at 21:30; Stop 03/07/22 at 21:31; Status Cancel Methylprednisolone Sodium Succinate (SOLU-Medrol 125MG VIAL) 125 mg STK-MED ONCE .ROUTE ; Start 03/07/22 at 21:05; Stop 03/07/22 at 21:07; Status DC Diphenhydramine HCl (Benadryl) 50 mg STK-MED ONCE .ROUTE ; Start 03/07/22 at 21:05; Stop 03/07/22 at 21:07; Status DC Epinephrine HCl (Adrenalin) 1 mg STK-MED ONCE .ROUTE ; Start 03/07/22 at 21:05; Stop 03/07/22 at 21:07; Status DC Iohexol (Omnipaque 300 Mg/ml) 75 ml 1X ONCE IV Last administered on 03/07/22at 23:23; Start 03/07/22 at 23:30; Stop 03/07/22 at 23:31; Status DC Info (CONTRAST GIVEN -- Rx MONITORING) 1 each PRN DAILY PRN MC SEE COMMENTS; Start 03/07/22 at 23:00; Stop 03/09/22 at 22:59 Ondansetron HCl (Zofran) 4 mg PRN Q8HRS PRN IVP NAUSEA/VOMITING 1ST CHOICE; Start 03/08/22 at 01:15; Stop 03/09/22 at 01:14 Acetaminophen (Tylenol) 650 mg PRN Q4HRS PRN PO FEVER > 100.3'F; Start 03/08/22 at 01:15; Stop 03/09/22 at 01:14 Acetaminophen/ Hydrocodone Bitart (Lortab 5/325) 1 tab PRN Q4HRS PRN PO MODERATE PAIN 4-6; Start 03/08/22 at 01:15 Benzonatate (Tessalon Perle) 100 mg TID PRN PRN PO COUGH; Start 03/08/22 at 01:15 Diphenhydramine HCl (Benadryl) 25 mg PRN Q6HRS PRN PO ITCHING; Start 03/08/22 a t 01:15 Active Scripts Active Potassium Chloride (Potassium Chloride) 20 Meq Tablet.er 20 Meq PO DAILYWBKFT 30 Days Doxycycline Hyclate 100 Mg Tablet 100 Mg PO BID 7 Days Reported D3-50 (Cholecalciferol (Vitamin D3)) 50,000 Unit Capsule 1 Cap PO QFR 28 Days Cetirizine Hcl 10 Mg Tablet 1 Tab PO DAILY Calcium (Calcium Carbonate) 500 Mg Tablet 1 Tab PO QID 30 Days Fexofenadine Hcl 180 Mg Tablet 1 Tab PO DAILY Benzonatate 100 Mg Capsule 1 Cap PO TID Acetaminophen 500 Mg Tablet 2 Tab PO BID PRN 15 Days Omeprazole 40 Mg Capsule.dr 1 Cap PO DAILY Oxycodone Hcl Immed.release (Oxycodone Hcl) 5 Mg Tablet 5 Mg PO PRN Q4HRS PRN Miralax (Polyethylene Glycol 3350) 119 Gm Powder 17 Gm PO DAILY dissolve in water Xgeva (Denosumab) 120 Mg/1.7 Ml Vial 120 Mg SQ Q4WK Cetirizine Hcl 10 Mg Tablet 10 Mg PO DAILY Senna (Sennosides) 8.8 Mg/5 Ml Syrup 8.8 Mg PO DAILY Ondansetron Odt (Ondansetron) 4 Mg Tab.rapdis 4 Mg PO BID PRN Zoloft (Sertraline Hcl) 25 Mg Tablet 25 Mg PO DAILY Pradaxa (Dabigatran Etexilate Mesylate) 150 Mg Capsule 150 Mg PO BID Tagrisso (Osimertinib Mesylate) 80 Mg Tablet 80 Mg PO DAILY Allergies Allergies: Coded Allergies: No Known Drug Allergies (Unverified , 03/08/22) ROS General: YES: Fatigue, Malaise; No: Chills, Night Sweats, Appetite, Other PSYCHOLOGICAL ROS: No: Anxiety, Behavioral Disorder, Concentration difficultie, Decreased libido, Depression, Disorientation, Hallucinations, Hostility, Irritablity, Memory difficulties, Mood Swings, Obsessive thoughts, Physical abuse, Sexual abuse, Sleep disturbances, Suicidal ideation, Other Eyes: No Blurry vision, No Decreased vision, No Double vision, No Dry eyes, No Excessive tearing, No Eye Pain, No Itchy Eyes, No Loss of vision, No Photophobia, No Scotomata, No Uses contacts, No Uses glasses, No Other HEENT: No: Heacaches, Visual Changes, Hearing change, Nasal congestion, Nasal discharge, Oral lesions, Sinus pain, Sore Throat, Epistaxis, Sneezing, Snoring, Tinnitus, Vertigo, Vocal changes, Other ALLERGY AND IMMUNOLOGY: No: Hives, Insect Bite Sensitivity, Itchy/Watery Eyes, Nasal Congestion, Post Nasal Drip, Seasonal Allergies, Other Hematological and Lymphatic: No: Bleeding Problems, Blood Clots, Blood Transfusions, Brusing, Night Sweats, Pallor, Swollen Lymph Nodes, Other ENDOCRINE: No: Breast Changes, Galactorrhea, Hair Pattern Changes, Hot Flashes, Malaise/lethargy, Mood Swings, Palpitations, Polydipsia/polyuria, Skin Changes, Temperature Intolerance, Unexpected Weight Changes, Other Breast: No New/Changing Breast Lumps, No Nipple changes, No Nipple discharge, No Other Respiratory: YES: Cough; No: Hemoptysis, Orthopnea, Pleuritic Pain, Shortness of breath, SOB with excertion, Sputum Changes, Stridor, Tachypnea, Wheezing, Other Cardiovascular: No Chest Pain, No Palpitations, No Orthopnea, No Paroxysmal Noc. Dyspnea, No Edema, No Lt Headedness, No Other Gastrointestinal: Yes Nausea; No Vomiting, No Abdominal Pain, No Diarrhea, No Constipation, No Melena, No Hematochezia, No Other Genitourinary: No Dysuria, No Frequency, No Incontinence, No Hematuria, No Retention, No Discharge, No Urgency, No Pain, No Flank Pain, No Other, No , No , No , No , No , No , No Musculoskeletal: No Gait Disturbance, No Joint Pain, No Joint Stiffness, No Joint Swelling, No Muscle Pain, No Muscular Weakness, No Pain In:, No Swelling In:, No Other Neurological: No Behavorial Changes, No Bowel/Bladder ControlChng, No Confusion, No Dizziness, No Gait Disturbance, No Headaches, No Impaired Coord/balance, No Memory Loss, No Numbness/Tingling, No Seizures, No Speech Problems, No Tremors, No Visual Changes, No Weakness, No Other Skin: No Dry Skin, No Eczema, No Hair Changes, No Lumps, No Mole Changes, No Mottling, No Nail Changes, No Pruritus, No Rash, No Skin Lesion Changes, No Other, No Acne Physical Exam General: Alert, Oriented X3, Cooperative, mild distress HEENT: Atraumatic, PERRLA, EOMI, Mucous membr. moist/pink Lungs: Other (Bilateral scattered wheezing) Heart: S1S2, RRR, no thrills, no rubs, no gallops, no murmurs Abdomen: Normal bowel sounds, Soft, No tenderness, No hepatosplenomegaly, No masses Rectal Exam: not examined Extremities: No clubbing, No cyanosis, No edema, Normal pulses, No tenderness/swelling Skin: No rashes, No breakdown, No significant lesion Neuro: Normal gait, Normal speech, Strength at 5/5 X4 ext, Normal tone, Sensation intact, Cranial nerves 3-12 NL, Reflexes 2+ Psych/Mental Status: Mental status NL, Mood NL Vitals Vitals Vital Signs Date Time Temp Pulse Resp B/P (MAP) Pulse Ox O2 Delivery O2 Flow Rate FiO2 03/08/22 03:05 97.7 65 18 150/89 (109) 96 Room Air 97.7 Labs Labs Laboratory Tests Test 03/07/22 22:05 03/07/22 22:10 White Blood Count 4.1 x10^3/uL (4.0-11.0) Red Blood Count 3.93 x10^6/uL (3.50-5.40) Hemoglobin 11.5 g/dL (12.0-15.5) Hematocrit 34.1 % (36.0-47.0) Mean Corpuscular Volume 87 fL (79-100) Mean Corpuscular Hemoglobin 29 pg (25-35) Mean Corpuscular Hemoglobin Concent 34 g/dL (31-37) Red Cell Distribution Width 14.0 % (11.5-14.5) Platelet Count 139 x10^3/uL (140-400) Neutrophils (%) (Auto) 56 % (31-73) Lymphocytes (%) (Auto) 32 % (24-48) Monocytes (%) (Auto) 10 % (0-9) Eosinophils (%) (Auto) 2 % (0-3) Basophils (%) (Auto) 0 % (0-3) Neutrophils # (Auto) 2.3 x10^3/uL (1.8-7.7) Lymphocytes # (Auto) 1.3 x10^3/uL (1.0-4.8) Monocytes # (Auto) 0.4 x10^3/uL (0.0-1.1) Eosinophils # (Auto) 0.1 x10^3/uL (0.0-0.7) Basophils # (Auto) 0.0 x10^3/uL (0.0-0.2) Sodium Level 141 mmol/L (136-145) Potassium Level 4.1 mmol/L (3.5-5.1) Chloride Level 107 mmol/L (98-107) Carbon Dioxide Level 25 mmol/L (21-32) Anion Gap 9 (6-14) Blood Urea Nitrogen 7 mg/dL (7-20) Creatinine 0.6 mg/dL (0.6-1.0) Estimated GFR (Cockcroft-Gault) 104.6 BUN/Creatinine Ratio 12 (6-20) Glucose Level 95 mg/dL (70-99) Calcium Level 8.7 mg/dL (8.5-10.1) Total Bilirubin 0.5 mg/dL (0.2-1.0) Aspartate Amino Transf (AST/SGOT) 42 U/L (15-37) Alanine Aminotransferase (ALT/SGPT) 40 U/L (14-59) Alkaline Phosphatase 79 U/L (46-116) Troponin I High Sensitivity 5 ng/L (4-50) VE-Zrz-H-Type Natriuretic Peptide 138 pg/mL (0-124) Total Protein 7.5 g/dL (6.4-8.2) Albumin 3.3 g/dL (3.4-5.0) Albumin/Globulin Ratio 0.8 (1.0-1.7) Lipase 161 U/L (73-393) Influenza Type A Antigen Negative (NEGATIVE) Influenza Type B Antigen Negative (NEGATIVE) SARS-CoV-2 Antigen (Rapid) Negative (NEGATIVE) Urine Collection Type Unknown Urine Color (Auto) Colorless Urine Turbidity Clear Urine pH (Auto) 6.5 (<5.0-8.0) Urine Specific [place] 1.008 (1.000-1.030) Urine Protein (Auto) Negative mg/dL (Negative) Urine Glucose (Auto)(UA) Negative mg/dL (Negative) Urine Ketones (Auto) Negative mg/dL (Negative) Urine Blood (Auto) Negative (Negative) Urine Nitrite Negative (Negative) Urine Bilirubin (Auto) Negative (Negative) Urine Urobilinogen (Auto) Normal mg/dL (Normal) Urine Leukocyte Esterase (Auto) Negative (Negative) Urine RBC 3-5 /HPF (0-2) Urine WBC 1-4 /HPF (0-4) Urine Squamous Epithelial Cells Occ /LPF Urine Bacteria 0 /HPF (0-FEW) Laboratory Tests Test 03/07/22 22:05 03/07/22 22:10 White Blood Count 4.1 x10^3/uL (4.0-11.0) Red Blood Count 3.93 x10^6/uL (3.50-5.40) Hemoglobin 11.5 g/dL (12.0-15.5) Hematocrit 34.1 % (36.0-47.0) Mean Corpuscular Volume 87 fL (79-100) Mean Corpuscular Hemoglobin 29 pg (25-35) Mean Corpuscular Hemoglobin Concent 34 g/dL (31-37) Red Cell Distribution Width 14.0 % (11.5-14.5) Platelet Count 139 x10^3/uL (140-400) Neutrophils (%) (Auto) 56 % (31-73) Lymphocytes (%) (Auto) 32 % (24-48) Monocytes (%) (Auto) 10 % (0-9) Eosinophils (%) (Auto) 2 % (0-3) Basophils (%) (Auto) 0 % (0-3) Neutrophils # (Auto) 2.3 x10^3/uL (1.8-7.7) Lymphocytes # (Auto) 1.3 x10^3/uL (1.0-4.8) Monocytes # (Auto) 0.4 x10^3/uL (0.0-1.1) Eosinophils # (Auto) 0.1 x10^3/uL (0.0-0.7) Basophils # (Auto) 0.0 x10^3/uL (0.0-0.2) Sodium Level 141 mmol/L (136-145) Potassium Level 4.1 mmol/L (3.5-5.1) Chloride Level 107 mmol/L (98-107) Carbon Dioxide Level 25 mmol/L (21-32) Anion Gap 9 (6-14) Blood Urea Nitrogen 7 mg/dL (7-20) Creatinine 0.6 mg/dL (0.6-1.0) Estimated GFR (Cockcroft-Gault) 104.6 BUN/Creatinine Ratio 12 (6-20) Glucose Level 95 mg/dL (70-99) Calcium Level 8.7 mg/dL (8.5-10.1) Total Bilirubin 0.5 mg/dL (0.2-1.0) Aspartate Amino Transf (AST/SGOT) 42 U/L (15-37) Alanine Aminotransferase (ALT/SGPT) 40 U/L (14-59) Alkaline Phosphatase 79 U/L (46-116) Troponin I High Sensitivity 5 ng/L (4-50) YC-Eqs-E-Type Natriuretic Peptide 138 pg/mL (0-124) Total Protein 7.5 g/dL (6.4-8.2) Albumin 3.3 g/dL (3.4-5.0) Albumin/Globulin Ratio 0.8 (1.0-1.7) Lipase 161 U/L (73-393) Influenza Type A Antigen Negative (NEGATIVE) Influenza Type B Antigen Negative (NEGATIVE) SARS-CoV-2 Antigen (Rapid) Negative (NEGATIVE) Urine Collection Type Unknown Urine Color (Auto) Colorless Urine Turbidity Clear Urine pH (Auto) 6.5 (<5.0-8.0) Urine Specific [place] 1.008 (1.000-1.030) Urine Protein (Auto) Negative mg/dL (Negative) Urine Glucose (Auto)(UA) Negative mg/dL (Negative) Urine Ketones (Auto) Negative mg/dL (Negative) Urine Blood (Auto) Negative (Negative) Urine Nitrite Negative (Negative) Urine Bilirubin (Auto) Negative (Negative) Urine Urobilinogen (Auto) Normal mg/dL (Normal) Urine Leukocyte Esterase (Auto) Negative (Negative) Urine RBC 3-5 /HPF (0-2) Urine WBC 1-4 /HPF (0-4) Urine Squamous Epithelial Cells Occ /LPF Urine Bacteria 0 /HPF (0-FEW) Images Images XR CHEST 1V Indication: Reason: cough / Spl. Instructions: / History: . Comparison: October 16, 2021 FINDINGS/ IMPRESSION: Nodular opacity in the right lung is again seen. Slightly prominent interstitial markings bilaterally are unchanged, nonspecific but likely chronic. The cardiac silhouette is enlarged. There is no appreciable pleural effusion or pneumothorax. Bone lesions in bilateral humeri and right scapula are again seen consistent with metastases. CT chest, abdomen and pelvis with contrast INDICATION: Cough. History of metastatic lung cancer. COMPARISON: PET/CT 03/05/2022; CT chest, abdomen and pelvis 01/22/2022 TECHNIQUE: Helical CT imaging performed of the chest, abdomen and pelvis after the intravenous administration of 75 cc Omnipaque 300. Coronal and sagittal reformats were obtained. One or more of the following individualized dose reduction techniques were utilized for this examination: 1. Automated exposure control 2. Adjustment of the mA and/or kV according to patient size 3. Use of iterative reconstruction technique. FINDINGS: CT Chest: Pleural-based opacity posteriorly at the right lung apex is unchanged. Mass within the right middle lobe is no different in size. Similar mild heterogeneity of lung parenchymal attenuation pattern from comparison exams with some subpleural predominant reticular densities and areas of attenuation. No newly seen confluent airspace infiltrate. No pleural effusion or pneumothorax. No central airway opacification has developed. No aortic aneurysm or dissection. Unchanged mild ectasia of the ascending aorta in relation to the caliber of the descending aorta. Main pulmonary artery caliber is within normal limits. No central pulmonary embolism. The study is not performed to adequately assess the more peripheral pulmonary arteries. FDG avid lymph nodes on the comparison PET/CT are no different in size. No pericardial effusion. Axillary lymph nodes are within normal limits. The partially imaged thyroid is unremarkable. Redemonstration of multifocal sclerotic metastatic disease. Unchanged deformity and flattening of the right humeral head. No pathologic fracture is identified. CT Abdomen/Pelvis: No newly seen abnormality of the liver, gallbladder, biliary tree, pancreas, spleen or adrenal glands. Unchanged subcentimeter nodule at the far posterior margin of the right adrenal gland. Symmetric renal parenchymal enhancement. No hydronephrosis. Mildly distended urinary bladder. No localized wall thickening. Within normal limits uterus and adnexa. Mild/moderate constipation. Unchanged appendix which is either redundant and difficult to visualize more distally or short in length. No pathologic dilatation of small bowel or pneumatosis. Unremarkable stomach considering incomplete distention. No acute major vascular abnormality. Mild calcified and noncalcified atheromatous plaque. No lymphadenopathy has developed based on size criteria. No free fluid or pneumoperitoneum. Multifocal sclerotic metastases. No pathologic fracture. IMPRESSION: CT Chest: 1. No acute finding is identified throughout the chest to help explain reported cough. No significant change from the recent PET/CT performed on 03/05/2022. A right middle lobe mass and a right lung apex pleural-based opacity have not changed in size and have been described previously. No interval lymph node enlargement. CT Abdomen/Pelvis: 1. No acute abnormality seen throughout the abdomen or pelvis. 2. Mild/moderate constipation. 3. Diffuse known sclerotic osseous metastases. No pathologic fracture. VTE Prophylaxis Ordered VTE Prophylaxis Devices: No VTE Pharmacological Prophylaxi: Yes Assessment/Plan Assessment/Plan Cough - with facial pain, symptoms > 8 days, possibly sinusitis given failure to treat as allergies. Lung cancer stable. 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 Negative cardiac work-up FEN - Regular diet PPX - lovenox FULL CODE DIspo - inpatient/observation Justifications for Admission Other Justification ZARA MARISCAL MD Mar 08, 2022 07:31
[2022-03-08] MEDS ORDERED: PANTOPRAZOLE 40 MG TABLET.DR. PO SCH (08:00)
[2022-03-08] MEDS ORDERED: OSIMERTINIB MESYLATE 80 MG PO SCH (09:00)
[2022-03-08] MEDS ORDERED: SERTRALINE 25 MG TABLET. PO SCH (09:00)
[2022-03-08] MEDS ORDERED: CETIRIZINE HCL 10 MG TABLET. PO SCH (09:00)
[2022-03-08] MEDS ORDERED: CALCIUM CARBONATE 500 MG TABLET PO SCH (09:00)
[2022-03-08] MEDS ORDERED: BENZONATATE 100 MG CAPSULE. PO SCH (09:00)
[2022-03-08] MEDS ORDERED: POLYETHYLENE GLYCOL 3350 17 GM PACKET. PO SCH (09:00)
[2022-03-08] MEDS ORDERED: DABIGATRAN ETEXILATE 150 MG CAPSULE. PO SCH (09:00)
--- NOTE | 2022-03-08 09:04 | PDOC ---
PULMONARY PROGRESS NOTES DATE: 03/08/22 TIME: 09:04 Vitals Vital Signs Date Time Temp Pulse Resp B/P (MAP) Pulse Ox O2 Delivery O2 Flow Rate FiO2 03/08/22 08:31 Room Air 03/08/22 03:05 97.7 65 18 150/89 (109) 96 97.7 General: Alert, No acute distress HEENT: Other Lungs: Other Cardiovascular: S1, S2 Abdomen: Soft Labs Laboratory Tests Test 03/07/22 22:05 03/07/22 22:10 White Blood Count 4.1 x10^3/uL (4.0-11.0) Red Blood Count 3.93 x10^6/uL (3.50-5.40) Hemoglobin 11.5 g/dL (12.0-15.5) Hematocrit 34.1 % (36.0-47.0) Mean Corpuscular Volume 87 fL (79-100) Mean Corpuscular Hemoglobin 29 pg (25-35) Mean Corpuscular Hemoglobin Concent 34 g/dL (31-37) Red Cell Distribution Width 14.0 % (11.5-14.5) Platelet Count 139 x10^3/uL (140-400) Neutrophils (%) (Auto) 56 % (31-73) Lymphocytes (%) (Auto) 32 % (24-48) Monocytes (%) (Auto) 10 % (0-9) Eosinophils (%) (Auto) 2 % (0-3) Basophils (%) (Auto) 0 % (0-3) Neutrophils # (Auto) 2.3 x10^3/uL (1.8-7.7) Lymphocytes # (Auto) 1.3 x10^3/uL (1.0-4.8) Monocytes # (Auto) 0.4 x10^3/uL (0.0-1.1) Eosinophils # (Auto) 0.1 x10^3/uL (0.0-0.7) Basophils # (Auto) 0.0 x10^3/uL (0.0-0.2) Sodium Level 141 mmol/L (136-145) Potassium Level 4.1 mmol/L (3.5-5.1) Chloride Level 107 mmol/L (98-107) Carbon Dioxide Level 25 mmol/L (21-32) Anion Gap 9 (6-14) Blood Urea Nitrogen 7 mg/dL (7-20) Creatinine 0.6 mg/dL (0.6-1.0) Estimated GFR (Cockcroft-Gault) 104.6 BUN/Creatinine Ratio 12 (6-20) Glucose Level 95 mg/dL (70-99) Calcium Level 8.7 mg/dL (8.5-10.1) Total Bilirubin 0.5 mg/dL (0.2-1.0) Aspartate Amino Transf (AST/SGOT) 42 U/L (15-37) Alanine Aminotransferase (ALT/SGPT) 40 U/L (14-59) Alkaline Phosphatase 79 U/L (46-116) Troponin I High Sensitivity 5 ng/L (4-50) PY-Bdy-K-Type Natriuretic Peptide 138 pg/mL (0-124) Total Protein 7.5 g/dL (6.4-8.2) Albumin 3.3 g/dL (3.4-5.0) Albumin/Globulin Ratio 0.8 (1.0-1.7) Lipase 161 U/L (73-393) Influenza Type A Antigen Negative (NEGATIVE) Influenza Type B Antigen Negative (NEGATIVE) SARS-CoV-2 Antigen (Rapid) Negative (NEGATIVE) Urine Collection Type Unknown Urine Color (Auto) Colorless Urine Turbidity Clear Urine pH (Auto) 6.5 (<5.0-8.0) Urine Specific [place] 1.008 (1.000-1.030) Urine Protein (Auto) Negative mg/dL (Negative) Urine Glucose (Auto)(UA) Negative mg/dL (Negative) Urine Ketones (Auto) Negative mg/dL (Negative) Urine Blood (Auto) Negative (Negative) Urine Nitrite Negative (Negative) Urine Bilirubin (Auto) Negative (Negative) Urine Urobilinogen (Auto) Normal mg/dL (Normal) Urine Leukocyte Esterase (Auto) Negative (Negative) Urine RBC 3-5 /HPF (0-2) Urine WBC 1-4 /HPF (0-4) Urine Squamous Epithelial Cells Occ /LPF Urine Bacteria 0 /HPF (0-FEW) Laboratory Tests Test 03/07/22 22:05 03/07/22 22:10 White Blood Count 4.1 x10^3/uL (4.0-11.0) Red Blood Count 3.93 x10^6/uL (3.50-5.40) Hemoglobin 11.5 g/dL (12.0-15.5) Hematocrit 34.1 % (36.0-47.0) Mean Corpuscular Volume 87 fL (79-100) Mean Corpuscular Hemoglobin 29 pg (25-35) Mean Corpuscular Hemoglobin Concent 34 g/dL (31-37) Red Cell Distribution Width 14.0 % (11.5-14.5) Platelet Count 139 x10^3/uL (140-400) Neutrophils (%) (Auto) 56 % (31-73) Lymphocytes (%) (Auto) 32 % (24-48) Monocytes (%) (Auto) 10 % (0-9) Eosinophils (%) (Auto) 2 % (0-3) Basophils (%) (Auto) 0 % (0-3) Neutrophils # (Auto) 2.3 x10^3/uL (1.8-7.7) Lymphocytes # (Auto) 1.3 x10^3/uL (1.0-4.8) Monocytes # (Auto) 0.4 x10^3/uL (0.0-1.1) Eosinophils # (Auto) 0.1 x10^3/uL (0.0-0.7) Basophils # (Auto) 0.0 x10^3/uL (0.0-0.2) Sodium Level 141 mmol/L (136-145) Potassium Level 4.1 mmol/L (3.5-5.1) Chloride Level 107 mmol/L (98-107) Carbon Dioxide Level 25 mmol/L (21-32) Anion Gap 9 (6-14) Blood Urea Nitrogen 7 mg/dL (7-20) Creatinine 0.6 mg/dL (0.6-1.0) Estimated GFR (Cockcroft-Gault) 104.6 BUN/Creatinine Ratio 12 (6-20) Glucose Level 95 mg/dL (70-99) Calcium Level 8.7 mg/dL (8.5-10.1) Total Bilirubin 0.5 mg/dL (0.2-1.0) Aspartate Amino Transf (AST/SGOT) 42 U/L (15-37) Alanine Aminotransferase (ALT/SGPT) 40 U/L (14-59) Alkaline Phosphatase 79 U/L (46-116) Troponin I High Sensitivity 5 ng/L (4-50) XA-Xks-S-Type Natriuretic Peptide 138 pg/mL (0-124) Total Protein 7.5 g/dL (6.4-8.2) Albumin 3.3 g/dL (3.4-5.0) Albumin/Globulin Ratio 0.8 (1.0-1.7) Lipase 161 U/L (73-393) Influenza Type A Antigen Negative (NEGATIVE) Influenza Type B Antigen Negative (NEGATIVE) SARS-CoV-2 Antigen (Rapid) Negative (NEGATIVE) Urine Collection Type Unknown Urine Color (Auto) Colorless Urine Turbidity Clear Urine pH (Auto) 6.5 (<5.0-8.0) Urine Specific [place] 1.008 (1.000-1.030) Urine Protein (Auto) Negative mg/dL (Negative) Urine Glucose (Auto)(UA) Negative mg/dL (Negative) Urine Ketones (Auto) Negative mg/dL (Negative) Urine Blood (Auto) Negative (Negative) Urine Nitrite Negative (Negative) Urine Bilirubin (Auto) Negative (Negative) Urine Urobilinogen (Auto) Normal mg/dL (Normal) Urine Leukocyte Esterase (Auto) Negative (Negative) Urine RBC 3-5 /HPF (0-2) Urine WBC 1-4 /HPF (0-4) Urine Squamous Epithelial Cells Occ /LPF Urine Bacteria 0 /HPF (0-FEW) Medications Active Scripts Medications Dose Route/Sig Max Daily Dose Days Date Category Dose Instructions Potassium Chloride (Potassium Chloride) 20 Meq Tablet.er 20 Meq PO DAILYWBKFT 30 10/20/21 Rx Doxycycline Hyclate 100 Mg Tablet 100 Mg PO BID 7 10/20/21 Rx D3-50 (Cholecalciferol (Vitamin D3)) 50,000 Unit Capsule 1 Cap PO QFR 28 10/16/21 Reported Cetirizine Hcl 10 Mg Tablet 1 Tab PO DAILY 10/16/21 Reported Calcium (Calcium Carbonate) 500 Mg Tablet 1 Tab PO QID 30 10/16/21 Reported Fexofenadine Hcl 180 Mg Tablet 1 Tab PO DAILY 10/16/21 Reported Benzonatate 100 Mg Capsule 1 Cap PO TID 10/16/21 Reported Acetaminophen 500 Mg Tablet 2 Tab PO BID PRN 15 10/16/21 Reported Omeprazole 40 Mg Capsule.dr 1 Cap PO DAILY 10/16/21 Reported Oxycodone Hcl Immed.release (Oxycodone Hcl) 5 Mg Tablet 5 Mg PO PRN Q4HRS PRN 10/16/21 Reported Miralax (Polyethylene Glycol 3350) 119 Gm Powder 17 Gm PO DAILY 06/22/21 Reported dissolve in water Xgeva (Denosumab) 120 Mg/1.7 Ml Vial 120 Mg SQ Q4WK 06/22/21 Reported Cetirizine Hcl 10 Mg Tablet 10 Mg PO DAILY 06/22/21 Reported Senna (Sennosides) 8.8 Mg/5 Ml Syrup 8.8 Mg PO DAILY 06/22/21 Reported Ondansetron Odt (Ondansetron) 4 Mg Tab.rapdis 4 Mg PO BID PRN 06/22/21 Reported Zoloft (Sertraline Hcl) 25 Mg Tablet 25 Mg PO DAILY 06/22/21 Reported Pradaxa (Dabigatran Etexilate Mesylate) 150 Mg Capsule 150 Mg PO BID 06/22/21 Reported Tagrisso (Osimertinib Mesylate) 80 Mg Tablet 80 Mg PO DAILY 06/22/21 Reported Impression . Consult dictated Acute pansinusitis Cough related to the above See orders Discussed with YANDEL Tamez MD Mar 08, 2022 09:04
[2022-03-08 11:00] VITALS: BP 138/84
[2022-03-08] MEDS ORDERED: FLUTICASONE 50MCG/NASAL SPRAY 16GM BOTTLE. NS SCH (13:00)
[2022-03-08] MEDS ORDERED: AMOXICILLIN/K CLAV 875/125MG TABLET. PO ONE (13:00)
[2022-03-08] MEDS ORDERED: predniSONE 10 MG TABLET PO ONE (13:00)
[2022-03-08] MEDS ORDERED: AMOX1TAB61 PO (13:02)
[2022-03-08] MEDS ORDERED: PRED20TA PO (13:02)
--- NOTE | 2022-03-08 13:16 | PDOC3 ---
Discharge Summary Visit Information Date of Admission: Mar 08, 2022 Date of Discharge: Mar 08, 2022 Admitting Diagnosis: Cough, lung cancer Final Diagnosis Problems Medical Problems: (1) Cough Status: Acute (2) Lung cancer, primary, with metastasis from lung to other site Status: Acute Brief Hospital Course Allergies Allergies Coded Allergies Type Severity Reaction Last Updated Verified No Known Drug Allergies 03/08/22 No Vital Signs Vital Signs Date Time Temp Pulse Resp B/P (MAP) Pulse Ox O2 Delivery O2 Flow Rate FiO2 03/08/22 11:00 97.6 77 18 138/84 (102) 97 Room Air 97.6 Lab Results Laboratory Tests Test 03/07/22 22:05 03/07/22 22:10 White Blood Count 4.1 x10^3/uL (4.0-11.0) Red Blood Count 3.93 x10^6/uL (3.50-5.40) Hemoglobin 11.5 g/dL (12.0-15.5) Hematocrit 34.1 % (36.0-47.0) Mean Corpuscular Volume 87 fL (79-100) Mean Corpuscular Hemoglobin 29 pg (25-35) Mean Corpuscular Hemoglobin Concent 34 g/dL (31-37) Red Cell Distribution Width 14.0 % (11.5-14.5) Platelet Count 139 x10^3/uL (140-400) Neutrophils (%) (Auto) 56 % (31-73) Lymphocytes (%) (Auto) 32 % (24-48) Monocytes (%) (Auto) 10 % (0-9) Eosinophils (%) (Auto) 2 % (0-3) Basophils (%) (Auto) 0 % (0-3) Neutrophils # (Auto) 2.3 x10^3/uL (1.8-7.7) Lymphocytes # (Auto) 1.3 x10^3/uL (1.0-4.8) Monocytes # (Auto) 0.4 x10^3/uL (0.0-1.1) Eosinophils # (Auto) 0.1 x10^3/uL (0.0-0.7) Basophils # (Auto) 0.0 x10^3/uL (0.0-0.2) Sodium Level 141 mmol/L (136-145) Potassium Level 4.1 mmol/L (3.5-5.1) Chloride Level 107 mmol/L (98-107) Carbon Dioxide Level 25 mmol/L (21-32) Anion Gap 9 (6-14) Blood Urea Nitrogen 7 mg/dL (7-20) Creatinine 0.6 mg/dL (0.6-1.0) Estimated GFR (Cockcroft-Gault) 104.6 BUN/Creatinine Ratio 12 (6-20) Glucose Level 95 mg/dL (70-99) Calcium Level 8.7 mg/dL (8.5-10.1) Total Bilirubin 0.5 mg/dL (0.2-1.0) Aspartate Amino Transf (AST/SGOT) 42 U/L (15-37) Alanine Aminotransferase (ALT/SGPT) 40 U/L (14-59) Alkaline Phosphatase 79 U/L (46-116) Troponin I High Sensitivity 5 ng/L (4-50) QX-Fky-J-Type Natriuretic Peptide 138 pg/mL (0-124) Total Protein 7.5 g/dL (6.4-8.2) Albumin 3.3 g/dL (3.4-5.0) Albumin/Globulin Ratio 0.8 (1.0-1.7) Lipase 161 U/L (73-393) Influenza Type A Antigen Negative (NEGATIVE) Influenza Type B Antigen Negative (NEGATIVE) SARS-CoV-2 Antigen (Rapid) Negative (NEGATIVE) Urine Collection Type Unknown Urine Color (Auto) Colorless Urine Turbidity Clear Urine pH (Auto) 6.5 (<5.0-8.0) Urine Specific [place] 1.008 (1.000-1.030) Urine Protein (Auto) Negative mg/dL (Negative) Urine Glucose (Auto)(UA) Negative mg/dL (Negative) Urine Ketones (Auto) Negative mg/dL (Negative) Urine Blood (Auto) Negative (Negative) Urine Nitrite Negative (Negative) Urine Bilirubin (Auto) Negative (Negative) Urine Urobilinogen (Auto) Normal mg/dL (Normal) Urine Leukocyte Esterase (Auto) Negative (Negative) Urine RBC 3-5 /HPF (0-2) Urine WBC 1-4 /HPF (0-4) Urine Squamous Epithelial Cells Occ /LPF Urine Bacteria 0 /HPF (0-FEW) Laboratory Tests Test 03/07/22 22:05 03/07/22 22:10 White Blood Count 4.1 x10^3/uL (4.0-11.0) Red Blood Count 3.93 x10^6/uL (3.50-5.40) Hemoglobin 11.5 g/dL (12.0-15.5) Hematocrit 34.1 % (36.0-47.0) Mean Corpuscular Volume 87 fL (79-100) Mean Corpuscular Hemoglobin 29 pg (25-35) Mean Corpuscular Hemoglobin Concent 34 g/dL (31-37) Red Cell Distribution Width 14.0 % (11.5-14.5) Platelet Count 139 x10^3/uL (140-400) Neutrophils (%) (Auto) 56 % (31-73) Lymphocytes (%) (Auto) 32 % (24-48) Monocytes (%) (Auto) 10 % (0-9) Eosinophils (%) (Auto) 2 % (0-3) Basophils (%) (Auto) 0 % (0-3) Neutrophils # (Auto) 2.3 x10^3/uL (1.8-7.7) Lymphocytes # (Auto) 1.3 x10^3/uL (1.0-4.8) Monocytes # (Auto) 0.4 x10^3/uL (0.0-1.1) Eosinophils # (Auto) 0.1 x10^3/uL (0.0-0.7) Basophils # (Auto) 0.0 x10^3/uL (0.0-0.2) Sodium Level 141 mmol/L (136-145) Potassium Level 4.1 mmol/L (3.5-5.1) Chloride Level 107 mmol/L (98-107) Carbon Dioxide Level 25 mmol/L (21-32) Anion Gap 9 (6-14) Blood Urea Nitrogen 7 mg/dL (7-20) Creatinine 0.6 mg/dL (0.6-1.0) Estimated GFR (Cockcroft-Gault) 104.6 BUN/Creatinine Ratio 12 (6-20) Glucose Level 95 mg/dL (70-99) Calcium Level 8.7 mg/dL (8.5-10.1) Total Bilirubin 0.5 mg/dL (0.2-1.0) Aspartate Amino Transf (AST/SGOT) 42 U/L (15-37) Alanine Aminotransferase (ALT/SGPT) 40 U/L (14-59) Alkaline Phosphatase 79 U/L (46-116) Troponin I High Sensitivity 5 ng/L (4-50) IF-Ein-V-Type Natriuretic Peptide 138 pg/mL (0-124) Total Protein 7.5 g/dL (6.4-8.2) Albumin 3.3 g/dL (3.4-5.0) Albumin/Globulin Ratio 0.8 (1.0-1.7) Lipase 161 U/L (73-393) Influenza Type A Antigen Negative (NEGATIVE) Influenza Type B Antigen Negative (NEGATIVE) SARS-CoV-2 Antigen (Rapid) Negative (NEGATIVE) Urine Collection Type Unknown Urine Color (Auto) Colorless Urine Turbidity Clear Urine pH (Auto) 6.5 (<5.0-8.0) Urine Specific [place] 1.008 (1.000-1.030) Urine Protein (Auto) Negative mg/dL (Negative) Urine Glucose (Auto)(UA) Negative mg/dL (Negative) Urine Ketones (Auto) Negative mg/dL (Negative) Urine Blood (Auto) Negative (Negative) Urine Nitrite Negative (Negative) Urine Bilirubin (Auto) Negative (Negative) Urine Urobilinogen (Auto) Normal mg/dL (Normal) Urine Leukocyte Esterase (Auto) Negative (Negative) Urine RBC 3-5 /HPF (0-2) Urine WBC 1-4 /HPF (0-4) Urine Squamous Epithelial Cells Occ /LPF Urine Bacteria 0 /HPF (0-FEW) Brief Hospital Course Ms Brady is a 51-year-old female w/ PMHx metastatic lung cancer who presented to ED c/o cough and epigastric pain that occurred once. Patient is Sami speaking only and her family is at bedside to help with interpretation and over the phone as Common [employer]riculum toggler was not available. She has had a complaint of left upper tooth pain, facial swelling and 1 month of annoying cough. She has been told that the cough was related to allergies and has been taking Zyrtec-D and Flonase nasal spray with no improvement. Patient also describes pain in bilateral shoulders in the lower chest area and also in the left abdominal area. Labs with WBC 4.1, Hb 11.5, platelets 139, NA 141, K4.1, BUN 7, CR 0.6, glucose 95, calcium 8.7, bilirubin 0.5, AST 42, ALT 40, alkaline phosphatase 79, albumin 3.3, lipase 161, NT proBNP 138, high-sensitivity troponin is 5, urinalysis bland, rapid COVID-19 and rapid influenza negative. Chest radiograph with nodular opacity right lower lobe pulm lesions bilateral humerus and right scapula. CT chest abdomen pelvis right middle lobe as [place] equal pleural-based opacity noted diffuse sclerotic osseous metastatic disease. EKG sinus rhythm rate 60 bpm normal axis and intervals no ST segment elevations or T WI, QTC 444 After saline rinse prednisone and started Augmentin patient started to feel better. She prefers to treat sinusitis outpatient. Pulmonology consulted agree we have discussed outpatient treatment for what appears to be pansinusitis Acute sinusitis - augmentin 10 days, add steroids for severity. saline nasal rinse, decongestants. Cough - with facial pain, symptoms > 8 days, possibly sinusitis given failure to treat as allergies. Lung cancer stable. 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 Negative cardiac work-up Greater than 30 minutes spent on d/c home with self care. Discharge Information Condition at Discharge: Improved Follow Up: Weeks (1) Disposition/Orders: D/C to Home Scheduled Amoxicillin/Potassium Clav (Augmentin 875-125 Tablet) 1 Each Tablet, 1 TAB PO BID for Sinusitis for 10 Days, #20 Ref 0 Prescribed by: ZARA MARISCAL MD on 03/08/22 1302 Benzonatate (Benzonatate) 100 Mg Capsule, 1 CAP PO TID for cough, #30 (Reported) Entered as Reported by: AMOS MEJIA on 10/16/211417 Last Action: Continued on 03/08/22 07 by ZARA MARISCAL MD Calcium Carbonate (Calcium) 500 Mg Tablet, 1 TAB PO QID for supplement for 30 Days, #120 Ref 0 (Reported) Entered as Reported by: AMOS MEJIA on 10/16/211417 Last Action: Continued on 03/08/22725 by ZARA MARISCAL MD Cetirizine Hcl (Cetirizine Hcl) 10 Mg Tablet, 10 MG PO DAILY for allergies, (Reported) Entered as Reported by: CRISTAL SHEFFIELD on 06/22/211419 Cetirizine Hcl (Cetirizine Hcl) 10 Mg Tablet, 1 TAB PO DAILY for allergies, #30 Ref 5 (Reported) Entered as Reported by: AMOS MEJIA on 10/16/211417 Last Action: Continued on 03/08/22725 by ZARA MARISCAL MD Cholecalciferol (Vitamin D3) (D3-50) 50,000 Unit Capsule, 1 CAP PO QFR for supplement for 28 Days, #4 Ref 0 (Reported) Entered as Reported by: AMOS MEJIA on 10/16/211417 Last Action: Converted on 03/08/22725 by ZARA MARSICAL MD Dabigatran Etexilate Mesylate (Pradaxa) 150 Mg Capsule, 150 MG PO BID for blood thinner, (Reported) Entered as Reported by: CRISTAL SHEFFIELD on 06/22/211419 Last Action: Continued on 03/08/22725 by ZARA MARISCAL MD Denosumab (Xgeva) 120 Mg/1.7 Ml Vial, 120 MG SQ Q4WK for bones, (Reported) Entered as Reported by: CRISTAL SHEFFIELD on 06/22/211419 Fexofenadine Hcl (Fexofenadine Hcl) 180 Mg Tablet, 1 TAB PO DAILY for unknown, #30 Ref 5 (Reported) Entered as Reported by: AMOS MEJIA on 10/16/211417 Omeprazole (Omeprazole) 40 Mg Capsule.dr, 1 CAP PO DAILY for GERD, #30 Ref 3 (Reported) Entered as Reported by: AMOS MEJIA on 10/16/211417 Last Action: Converted on 03/08/22725 by ZARA MARISCAL MD Osimertinib Mesylate (Tagrisso) 80 Mg Tablet, 80 MG PO DAILY for CA, (Reported) Entered as Reported by: CRISTAL SHEFFIELD on 06/22/211419 Last Action: Converted on 03/08/22725 by ZARA MARISCAL MD Polyethylene Glycol 3350 (Miralax) 119 Gm Powder, 17 GM PO DAILY for constipation, #527 Ref 0 (Reported) dissolve in water Entered as Reported by: CRISTAL SHEFFIELD on 06/22/211419 Last Action: Continued on 03/08/22725 by ZARA MARISCAL MD Potassium Chloride (Potassium Chloride ) 20 Meq Tablet.er, 20 MEQ PO DAILYWBKFT for . for 30 Days, #30 Prescribed by: GEOVANY DAVE on 10/20/21 1244 Prednisone (Prednisone) 20 Mg Tablet, 1 TAB PO DAILY for sinusitis for 10 Days, #10 Prescribed by: ZARA MARISCAL MD on 03/08/22 1302 Sennosides (Senna) 8.8 Mg/5 Ml Syrup, 8.8 MG PO DAILY for constipation, (Reported) Entered as Reported by: CRISTAL SHEFFIELD on 06/22/211419 Sertraline Hcl (Zoloft) 25 Mg Tablet, 25 MG PO DAILY for ANTI-DEPRESSANT, Ref 0 (Reported) Entered as Reported by: CRISTAL SHEFFIELD on 06/22/211419 Last Action: Continued on 03/08/22725 by ZARA MARISCAL MD Scheduled PRN Acetaminophen (Acetaminophen) 500 Mg Tablet, 2 TAB PO BID PRN for pain or fever for 15 Days, #60 Ref 0 (Reported) Entered as Reported by: AMOS MEJIA on 10/16/21 141 Ondansetron (Ondansetron Odt) 4 Mg Tab.rapdis, 4 MG PO BID PRN for NAUSEA/VOMITING, (Reported) Entered as Reported by: CRISTAL SHEFFIELD on 06/22/211419 Last Action: Continued on 03/08/22725 by ZARA MARISCAL MD Oxycodone Hcl (Oxycodone Hcl Immed.release ) 5 Mg Tablet, 5 MG PO PRN Q4HRS PRN for PAIN, Ref 0 (Reported) Entered as Reported by: AMOS MEJIA on 10/16/211416 Last Action: Continued on 03/08/22725 by ZARA MARISCAL MD Discontinued Medications Doxycycline Hyclate (Doxycycline Hyclate) 100 Mg Tablet, 100 MG PO BID for . for 7 Days, #14 Prescribed by: GEOVANY DAVE on 10/20/21 1244 Justicifation of Admission Dx: Justifications for Admission: Justification of Admission Dx: Yes ZARA MARISCAL MD Mar 08, 2022 13:16
[2022-03-08 15:00] VITALS: BP 132/75
--- NOTE | 2022-03-08 15:38 | NUR ---
Pt. discharged to home with Rx sent to pharmacy. Verbalized understanding of discharge instructions.
[2022-03-08] MEDS ORDERED: AMOXICILLIN/K CLAV 875/125MG TABLET. PO SCH (21:00)
[2022-03-08] MEDS ORDERED: PSYLLIUM HUSK (SUGAR FREE) 1 PKT PACKET PO SCH (21:00)
[2022-03-08] MEDS ORDERED: MONTELUKAST SODIUM 10 MG TABLET. PO SCH (21:00)
--- NOTE | 2022-03-08 21:18 | CONS ---
DATE OF CONSULTATION: 03/08/2022 ATTENDING PHYSICIAN: Yordan Irene MD REASON FOR CONSULTATION: The patient is seen in pulmonary consultation at the request of Dr. Irene for increasing cough. HISTORY OF PRESENT ILLNESS: The patient is a 51-year-old with a history of metastatic lung cancer, smoked for a short period of time many years ago, presented with increasing cough over the last month or so. The patient states that she is having some problems with sinus congestion, lots of mucus production. In addition, she has sinus pain when she touches her anterior sinuses, maxillary area, she has pain. She came in and underwent imaging studies including CT abdomen, pelvis and chest, which revealed no acute findings. There is no significant change on her CAT scan of the chest from previous PET scan done on 03/05. There were no acute abnormalities in the abdomen or pelvic area. The patient denies hemoptysis. She denies fever or chills. PAST MEDICAL HISTORY: Recently being treated for metastatic lung cancer. She has right shoulder metastases. She is in pain from that. PAST SURGICAL HISTORY: None. SOCIAL HISTORY: She is a former smoker. ALLERGIES: No known drug allergies. REVIEW OF SYSTEMS: As indicated above, otherwise a 10-point system was reviewed and negative. PHYSICAL EXAMINATION: VITAL SIGNS: Stable. O2 saturation greater than 92%, currently on room air. HEENT: Eyes: The sclerae were nonicteric. She did have tenderness over the maxillary sinuses. CHEST: Full expansion. LUNGS: Adequate flow with no wheezes. CARDIOVASCULAR: Regular rate and rhythm with S1, S2, no S3. ABDOMEN: Soft, nontender, nondistended. EXTREMITIES: No clubbing, cyanosis or edema. NEUROLOGIC: The patient was awake, alert, following commands. A detailed neuro exam was not performed. LABORATORY DATA: Reviewed. White count was normal, hemoglobin and hematocrit were noted. Electrolytes were noted. IMPRESSION: 1. Persistent cough related to acute pansinusitis. 2. Acute pansinusitis. 3. Metastatic lung cancer, is currently being treated. 4. Remote history of tobacco use. PLAN: 1. Initiate Augmentin 875 mg one p.o. b.i.d. for 21 days. 2. Prednisone daily 30 mg for now. 3. Flonase nasal spray. 4. Possible discharge today. Follow up in my office in 3-4 weeks. The above will be discussed with the hospitalist. SS/RAFAELA KELLEY: Theodore TID: [id number]
[2022-03-09] MEDS ORDERED: predniSONE 20 MG TABLET PO SCH (09:00)
[2022-03-12] MEDS ORDERED: ERGOCALCIFEROL (VITAMIN D2) 50,000 UNIT CAPSULE. PO SCH (09:00)
== END 2022-03-08 15:48 | disposition home or self-care (01) | DRG 153 ==
LOC: ER 20:10 → 4 NORTH 03-08 01:15
PROVIDERS: ADMIT Student in an Organized Health Care Education/Training Program; ATTEND Student in an Organized Health Care Education/Training Program
DX: J01.40 Acute pansinusitis, unspecified (principal); C34.90 Malignant neoplasm of unspecified part of unspecified bronchus or lung; C79.51 Secondary malignant neoplasm of bone; C34.91 Malignant neoplasm of unspecified part of right bronchus or lung; G89.3 Neoplasm related pain (acute) (chronic); I77.810 Thoracic aortic ectasia; K59.00 Constipation, unspecified; Z85.118 Personal history of other malignant neoplasm of bronchus and lung; Z87.891 Personal history of nicotine dependence
CPT/HCPCS: 36415; 71045; 71260; 74177; 80053; 81001; 83690; 83880; 84484; 85025; 87428; 93005; Q9967; 99285-25; G0378

== ENCOUNTER → 2022-03-11 | Outpatient (CLI) | payer OTHER ==
[2022-03-08 15:00] VITALS: BP 132/75
[~2022-03-11] MED LIST changes: +AMOX1TAB61 PO; +PRED20TA PO
[2022-03-11 12:02] LABS: BASO % 0 % (0-3); EOS % 1 % (0-3); HEMATOCRIT 36.6 % (36.0-47.0); HEMOGLOBIN 12.2 g/dL (12.0-15.5); LYMPH # 1.4 x10^3/uL (1.0-4.8); LYMPH % 20 % (24-48); MEAN CORPUSCULAR HEMOGLOBIN 29 pg (25-35); MEAN CORPUSCULAR HGB CONC 33 g/dL (31-37); MEAN CORPUSCULAR VOLUME 88 fL (79-100); MONO # 0.6 x10^3/uL (0.0-1.1); MONO % 8 % (0-9); NEUT % 71 % (31-73); PLATELET COUNT 156 x10^3/uL (140-400); RED BLOOD COUNT 4.15 x10^6/uL (3.50-5.40); RED CELL DISTRIBUTION WIDTH 14.1 % (11.5-14.5)
[2022-03-11 12:19] LABS: CALCIUM 8.5 mg/dL (8.5-10.1); POTASSIUM 3.4 mmol/L (3.5-5.1)
[2022-03-11 12:22] LABS: ALBUMIN 3.5 g/dL (3.4-5.0); ALBUMIN/GLOBULIN RATIO 0.7 (1.0-1.7); TOTAL BILIRUBIN 0.6 mg/dL (0.2-1.0); TOTAL PROTEIN 8.4 g/dL (6.4-8.2)
== END ==
LOC: ONCLAB 11:33
PROVIDERS: ATTEND Internal Medicine Hematology & Oncology
DX: C34.2 Malignant neoplasm of middle lobe, bronchus or lung (principal)
CPT/HCPCS: 36415; 80053; 85025

== ENCOUNTER 2022-04-11 12:15 | Emergency (ER) | payer OTHER ==
[~2022-04-11] VITALS: Ht 165.1 cm; Wt 72.7 kg
[2022-04-11 12:38] VITALS: BP 129/82
[2022-04-11] MEDS ORDERED: traMADol 50 MG TABLET PO ONE (13:30)
[2022-04-11] MEDS ORDERED: METH4TAB2 PO ×2 (14:02→14:26)
[2022-04-11] MEDS ORDERED: TRAM50TA PO ×2 (14:03→14:26)
--- NOTE | 2022-04-11 14:03 | PHYS DOC ---
Past Medical History Past Medical History: Cancer (lung with bone mets) Additional Past Medical Histor: LUNG CANCER, RIGHT SHOULDER/RIGHT ARM METS Past Surgical History: Tubal ligation, Other Additional Past Surgical Histo: Masectomy Smoking Status: Never Smoker Alcohol Use: None Drug Use: None General Adult EDM: Chief Complaint: LOWER EXT PAIN HPI: HPI: Patient is a 51 year old female who presents with 1 week history of bilateral knee pain, left greater than right, and associated swelling on the left. Patient's past medical history includes lung cancer with bone metastases. Last month, patient was treated for a sinus infection with Augmentin unsuccessfully. On 03/30/2022, her primary Doctor prescribed her Levaquin instead. Patient's pain began shortly after, so her primary care doctor advised that she stop taking the medication. Patient was evaluated 2 days ago at urgent care, where x-rays revealed multiple bone lesions. Patient's son states that they are aware of the bone lesions and that Dr. Huang, hematology/oncology is currently addressing these. Patient takes Tylenol 3 times a day for chronic pain, but this is not helping her pain. Also, the Toradol injection that was given 2 days ago at did not reduce her pain either. Patient has no other complaints at this time. Review of Systems: Review of Systems: ROS negative or noncontributory except as mentioned in HPI. Heart Score: C/O Chest Pain: No Current Medications: Current Medications Medications (Trade) Dose Ordered Sig/Charley Start Time Stop Time Status Last Admin Dose Admin Tramadol HCl (Ultram) 50 mg 1X ONCE 04/11/22 13:30 04/11/22 13:31 DC Allergies: Allergies: Allergies Coded Allergies Type Severity Reaction Last Updated Verified No Known Drug Allergies 03/08/22 No Physical Exam: PE: Constitutional: Well developed, well nourished, no acute distress, patient appears older than stated age. HENT: Normocephalic, atraumatic, bilateral external ears normal. Eyes: EOMI, conjunctiva normal, no discharge. Neck: Normal range of motion, no stridor. Thorax: Equal thoracic expansion, no increased work of breathing. Skin: Warm, dry, no erythema, no rash. Extremities: Bilateral anterior knee tenderness, left knee swelling without erythema, active and passive ROM intact bilateral knees/hips, no cyanosis, no cl ubbing. Neurologic: Alert and oriented x4, normal motor function, normal sensory function, no focal deficits noted. Current Patient Data: Vital Signs: Vital Signs Date Time Temp Pulse Resp B/P (MAP) Pulse Ox O2 Delivery O2 Flow Rate FiO2 04/11/22 13:47 18 97 04/11/22 12:38 98.1 68 18 129/82 (98) 98 Room Air 98.1 Radiology/Procedures: Radiology/Procedures: PROCEDURE: KNEE LEFT 4V Exam: XR KNEE _4 VIEWS WITH PATELLA_LT History: Pain for 7 days. Comparison: Bone scan 01/22/2022 Findings: Normal mineralization. There are numerous small sclerotic foci in the distal femur and proximal tibia consistent with osseous metastatic disease. Mild periosteal reaction at the medial femoral diaphysis distal third. No fracture lucencies identified. No knee effusion or focal soft tissue swelling. No significant degenerative changes. Impression: 1. Findings compatible with osseous metastatic disease of the distal femur and proximal tibia. Suggestion of periosteal elevation of the medial aspect of the left femur distal third may represent developing stress fracture. Correlate with site of pain. Consider bone scan or MRI for further evaluation. Electronically signed by: Nicko Miles MD (04/11/2022 2:18 PM) [id number] Course & Med Decision Making: Course & Med Decision Making Pertinent Labs and Imaging studies reviewed. (See chart for details) Patient is a 51-year-old female with history of lung cancer with bone metastases who presents with left knee pain and swelling after taking Levaquin. Patient likely has tendinitis as a side effect of Levaquin. I spoke to Dr. Huang, her oncologist, suggests a prednisone taper for tendonitis. He does also request that the patient call as soon as possible to schedule a follow-up appointment. On reevaluation, patient's pain is improved with tramadol. She will be prescribed tramadol and prednisone to take at home. Discussed findings and treatment plan with the patient and her son. Patient is already scheduled to see Dr. Huang Return precautions were provided. Patient understands and is agreeable to discharge plan. Dragon Disclaimer: Dragon Disclaimer: This electronic medical record was generated, in whole or in part, using a voice recognition dictation system. Departure Departure Impression: Primary Impression: Left knee tendonitis Additional Impression: Lung cancer, primary, with metastasis from lung to other site Qualified Codes: C34.90 - Malignant neoplasm of unspecified part of unspecified bronchus or lung Disposition: 01 HOME / SELF CARE / HOMELESS Condition: IMPROVED Referrals: HAROON CAMARGO MD (PCP) WILMAR HUANG MD Patient Instructions: Knee Pain, [id number], RICE - Routine Care for Injuries, [id number] Additional Instructions: Please call Dr. Huang's office or call him directly to schedule an appointment. See above for office phone number. Cell phone number [phone]. For patient's knee pain, you can alternate between ice and warm compress every 20 minutes. Additionally, you can follow RICE joint pain instructions provided. EMERGENCY DEPARTMENT GENERAL DISCHARGE INSTRUCTIONS Thank you for coming to [facility] Emergency Department (ED) today and trusting us with you care. We trust that you had a positive experience in our Emergency Department. If you wish to speak to the department management, you may call the director at . YOUR FOLLOW UP INSTRUCTIONS ARE FOLLOWS: 1. Follow up with your primary care doctor. If you do not have a primary doctor, please ask for a resource list of physicians or clinics that may be able to assist you with follow up care. 2. The emergency provider has interpreted your imaging studies, if any were ordered. The radiology real estate management specialist also reviewed them. If there is a change in the findings, you will be notified in 48 hours when at all possible. 3. If a lab test or culture has been done, your results will be reviewed and you will be notified if you need a change in treatment. 4. Follow instructions verbalized to you and refer to the printouts if needed. ADDITIONAL INSTRUCTIONS AND INFORMATION: 1. Your care today has been supervised by a physician who is specially trained in emergency care. Many problems require more than one evaluation for a complete diagnosis and treatment. We recommend that you schedule your follow up appointment as recommended to ensure complete treatment of you illness or injury. If you are unable to obtain follow up care and continue to have a problem, or if your condition worsens, we recommend that you return to the ED. 2. We are not able to safely determine your condition over the phone nor are we able to give sound medical advice over the phone. For these safety reasons, if you call for medical advice we will ask you to come to the ED for further evaluation. 3. If you have any questions regarding these discharge instructions please call the ED at . SAFETY INFORMATION: In the interest of safety, wellness, and injury prevention; we encourage you to wear your seat belt, if you smoke; quite smoking, and we encourage family to use a protective helmet for bicycling and other sporting events that present an increased risk for head injury. IF YOUR SYMPTOMS WORSEN OR NEW SYMPTOMS DEVELOP, OR YOU HAVE CONCERNS ABOUT YOUR CONDITION; OR IF YOUR CONDITION WORSENS WHILE YOU ARE WAITING FOR YOUR FOLLOW UP APPOINTMENT; EITHER CONTACT YOUR PRIMARY CARE DOCTOR, THE PHYSICIAN WHOSE NAME AND NUMBER YOU WERE GIVEN, OR RETURN TO THE ED IMMEDIATELY. Scripts Tramadol Hcl (TRAMADOL HCL) 50 Mg Tablet 50 MG PO Q6HRS PRN for PAIN, #12 TAB Prov: ERVIN BETH 04/11/22 Methylprednisolone (MEDROL) 4 Mg Tab.ds.pk 1 PKG PO UD, #1 PKG Prov: ERVIN BETH 04/11/22 ERVIN BETH April 11, 2022 14:03
--- NOTE | 2022-04-11 14:20 | RAD ---
Exam: XR KNEE _4 VIEWS WITH PATELLA_LT History: Pain for 7 days. Comparison: Bone scan 01/22/2022 Findings: Normal mineralization. There are numerous small sclerotic foci in the distal femur and proximal tibia consistent with osseous metastatic disease. Mild periosteal reaction at the medial femoral diaphysis distal third. No fracture lucencies identified. No knee effusion or focal soft tissue swelling. No s ignificant degenerative changes. Impression: 1. Findings compatible with osseous metastatic disease of the distal femur and proximal tibia. Sugge stion of periosteal elevation of the medial aspect of the left femur distal third may represent devel oping stress fracture. Correlate with site of pain. Consider bone scan or MRI for further evaluation. Electronically signed by: Nicko Miles MD (04/11/2022 2:18 PM) [id number]
== END 2022-04-11 14:20 | disposition home or self-care (01) ==
LOC: ER 12:15
DX: M76.9 Unspecified enthesopathy, lower limb, excluding foot (principal); C34.90 Malignant neoplasm of unspecified part of unspecified bronchus or lung; C79.51 Secondary malignant neoplasm of bone
CPT/HCPCS: 73564; 99283; A6450

== ENCOUNTER → 2022-04-13 | Outpatient (CLI) | payer OTHER ==
[2022-04-11 12:38] VITALS: BP 129/82
[~2022-04-13] MED LIST changes: +METH4TAB2 PO; +TRAM50TA PO
[2022-04-13 13:12] LABS: BASO % 0 % (0-3); EOS % 0 % (0-3); HEMATOCRIT 38.6 % (36.0-47.0); HEMOGLOBIN 12.8 g/dL (12.0-15.5); LYMPH # 1.1 x10^3/uL (1.0-4.8); LYMPH % 14 % (24-48); MEAN CORPUSCULAR HEMOGLOBIN 30 pg (25-35); MEAN CORPUSCULAR HGB CONC 33 g/dL (31-37); MEAN CORPUSCULAR VOLUME 89 fL (79-100); MONO # 0.7 x10^3/uL (0.0-1.1); MONO % 10 % (0-9); NEUT # 5.6 x10^3/uL (1.8-7.7); NEUT % 76 % (31-73); PLATELET COUNT 147 x10^3/uL (140-400); RED BLOOD COUNT 4.33 x10^6/uL (3.50-5.40); RED CELL DISTRIBUTION WIDTH 15.6 % (11.5-14.5); WHITE BLOOD COUNT 7.4 x10^3/uL (4.0-11.0)
[2022-04-13 13:32] LABS: CALCIUM 9.2 mg/dL (8.5-10.1); CREATININE 0.8 mg/dL (0.6-1.0); POTASSIUM 3.4 mmol/L (3.5-5.1)
[2022-04-13 13:38] LABS: ALBUMIN 3.7 g/dL (3.4-5.0); ALBUMIN/GLOBULIN RATIO 0.7 (1.0-1.7); TOTAL BILIRUBIN 0.7 mg/dL (0.2-1.0); TOTAL PROTEIN 8.7 g/dL (6.4-8.2)
== END ==
LOC: ONCLAB 12:24
PROVIDERS: ATTEND Internal Medicine Hematology & Oncology
DX: C34.2 Malignant neoplasm of middle lobe, bronchus or lung (principal)
CPT/HCPCS: 36415; 80053; 85025